=== PATIENT | female | born 1960 | race Caucasian/White ===

== ENCOUNTER 2016-10-14 21:10 | Emergency (ER) | payer SELFPAY ==
[2016-10-14 21:36] VITALS: RESP 18
[2016-10-14] MEDS ORDERED: PENICILLIN VK 500MG STARTER 4 TAB BTL PO STA (22:58)
[2016-10-14] MEDS ORDERED: HYDROcodone/APAP 5-325MG 1 EACH TAB PO STA (22:58)
--- NOTE | 2016-10-14 23:09 | ED ---
ENT HPI - General Chief complaint: Dental/Oral Stated complaint: dental pain Time Seen by Provider: 10/14/16 22:48 Source: patient, RN notes reviewed Mode of arrival: ambulatory - History of Present Illness Initial comments: 56 yo female presents to the ER with cc of left sided dental pain. patient states it has been for the last few days. she has noticed some swelling and warmth to the area. Hurts to eat and chew. Patient states she does have a tenderness to touch over the area. patient denies any pain into the neck. patient denies any inability to open or close the mouth. Patient states there is no other symptoms. Patient states that she has had a dentist. Patient states she was concerned due to the continued pain so she thought that she should be evaluated. Patient denies any recent fever, chills, shortness of breath, chest pain, back pain, abdominal pain, nausea vomiting, numbness or tingling, dysuria or hematuria, constipation or diarrhea, headaches or visual changes, or any other current symptoms. - Related Data Home Medications Medication Instructions Recorded Confirmed Ibuprofen [Motrin] 600 mg PO Q8HR PRN 03/24/16 03/24/16 Previous Rx's Medication Instructions Recorded Penicillin V Potassium [Pen Vee K] 500 mg PO TID #40 tab 03/24/16 traMADol HCl [Ultram] 50 mg PO Q4H PRN #20 tab 03/24/16 Hydrocodone/Acetaminophen [[place] 1 each PO Q6HR PRN #20 tab 10/14/16 5-325] Penicillin V Potassium [Pen Vee K] 500 mg PO TID #40 tab 10/14/16 Allergies Allergy/AdvReac Type Severity Reaction Status Date / Time Sulfa (Sulfonamide Allergy Unknown Verified 10/14/16 21:36 Antibiotics) Review of Systems ROS Statement: Those systems with pertinent positive or pertinent negative responses have been documented in the HPI. ROS Other: All systems not noted in ROS Statement are negative. Past Medical History Past Medical History: No Reported History History of Any Multi-Drug Resistant Organisms: None Reported Past Surgical History: Tonsillectomy, Tubal Ligation Past Psychological History: Anxiety Smoking Status: Never smoker Past Alcohol Use History: None Reported Past Drug Use History: None Reported General Exam General appearance: alert, in no apparent distress Head exam: Present: atraumatic, normocephalic. Absent: normal inspection (left sided facial swelling) Eye exam: Present: normal appearance, PERRL, EOMI. Absent: scleral icterus, conjunctival injection, periorbital swelling ENT exam: Present: normal exam, mucous membranes moist Expanded Ear exam: Present: normal external inspection Mouth exam: Present: normal external inspection Teeth exam: Present: dental caries (13), fractured tooth # (13), dental tenderness # (13), gingival enlargement (13 with no abscess) Neck exam: Present: normal inspection. Absent: tenderness, meningismus, lymphadenopathy Respiratory exam: Present: normal lung sounds bilaterally. Absent: respiratory distress, wheezes, rales, rhonchi, stridor Cardiovascular Exam: Present: regular rate, normal rhythm, normal heart sounds. Absent: systolic murmur, diastolic murmur, rubs, gallop, clicks Neurological exam: Present: alert, oriented X3 Psychiatric exam: Present: normal affect, normal mood Skin exam: Present: warm, dry, intact, normal color. Absent: rash Course Vital Signs 10/14/16 21:32 Temperature 98.2 F Pulse Rate 96 Respiratory 18 Rate Blood Pressure 127/72 O2 Sat by Pulse 96 Oximetry Medical Decision Making - Medical Decision Making 56 yo female presents to the ER with cc of dental caries. Patient at this time has no abscess. There is tenderness to palpation of the area. Patient at this time will be placed on antibiotics and pain medication. at this time we discussed return parameters and follow up. Patient stated she understood and all question were answered. Patient will be discharged home. Disposition Clinical Impression: Dental caries Disposition: HOME SELF-CARE Condition: Stable Instructions: Dental Caries (ED) Additional Instructions: Please use medication as discussed. Please follow up with family doctor if symptoms have not improved over the next two days. Please return to the emergency room if your symptoms increase or worsen or for any other concerns. [facility] [place] [address] [place] [address] [phone] (existing clients only) For new clients: [phone] 1st consult: $50 (includes Xrays) Usually 30% less then private dentist for visits after. [employer] Have to pay $50 for Xrays anmd rest is covered. [phone] Prescriptions: Hydrocodone/Acetaminophen [[place] 5-325] 1 each PO Q6HR PRN #20 tab PRN Reason: Pain Penicillin V Potassium [Pen Vee K] 500 mg PO TID #40 tab Referrals: None,Stated [Primary Care Provider] - 1-2 days Heather Lawson MD [STAFF PHYSICIAN] - 1-2 days Time of Disposition: 23:08
[2016-10-14 23:18] VITALS: BP 123/58; PULSE 70; TEMP 96.8
== END 2016-10-14 23:20 | disposition home or self-care (01) ==
LOC: EC 21:10
DX: S02.5XXA Fracture of tooth (traumatic), initial encounter for closed fracture (principal); K02.9 Dental caries, unspecified; K06.1 Gingival enlargement; Z88.2 Allergy status to sulfonamides; X58.XXXA Exposure to other specified factors, initial encounter
CPT/HCPCS: 99282

== ENCOUNTER → 2017-02-28 | Outpatient (CLI) | payer BC ==
--- NOTE | 2017-02-28 19:04 | XR ---
EXAMINATION TYPE: XR cervical spine comp DATE OF EXAM: 02/28/2017 COMPARISON: NONE HISTORY: Migraine memory loss neck pain TECHNIQUE: 5 views FINDINGS: Vertebra fairly normal alignment. There is a few millimeter anterior subluxation of C4 in r elation to C5. There is mild narrowing at C5-6 C6-7 disc spaces with some spur formation. Atlantoaxia l facet joint is normal. There are no cervical ribs. There is uncovertebral spurring and neural carissa inal impingement bilaterally at C5-6 C6-7. IMPRESSION: Spondylotic changes. No fracture.
== END ==
LOC: RADXRMAIN 18:18
PROVIDERS: ATTEND Family Medicine
DX: M47.812 Spondylosis without myelopathy or radiculopathy, cervical region (principal)
CPT/HCPCS: 72050

== ENCOUNTER → 2017-05-02 | Outpatient (CLI) | payer BC ==
--- NOTE | 2017-05-05 07:47 | MR ---
EXAMINATION TYPE: MR cervical spine wo con DATE OF EXAM: 05/02/2017 6:44 PM COMPARISON: NONE HISTORY: Neck pain, migraines and numbness in arms Multiplanar MultiSpin echo imaging of the cervical spine was performed. Comparison: none C2-C3: No evidence for degenerative disc disease. No disc bulge/herniation or protrusion. No Canal stenosis. Foramina are patent bilaterally. C3-C4: No evidence for degenerative disc disease. No disc bulge/herniation or protrusion. No Canal stenosis. Foramina are patent bilaterally. C4-C5: No evidence for degenerative disc disease. No disc bulge/herniation or protrusion. No Canal stenosis. Foramina are patent bilaterally. C5-C6: Severe disc desiccation. Moderate circumferential disc bulge greatest posteriorly. Subligament ous broad-based disc herniation not excluded. Ventral cord contact with the mild to moderate central stenosis. No evidence for compressive myelopathy. Degenerative change cervical apophyseal joints resu lting in bilateral foraminal encroachment moderate in degree. C6-C7: Moderate to severe disc desiccation. Left paracentral disc protrusion or mild herniation. Effa cement ventral thecal sac without cord contact or central stenosis. Bilateral foraminal encroachment left greater than right. C7-T1: No evidence for degenerative disc disease. No disc bulge/herniation or protrusion. No Canal stenosis. Foramina are patent bilaterally. Cervical segments are intact. There is reversal of the normal cervical lordosis centered at approxima tely the C5-6 level. Scattered ventral spondylosis identified. Cervical spinal cord is of normal sign al. Craniovertebral junction relationships are within normal limits. IMPRESSION: 1. Degenerative disc disease as discussed. 2. Broad-based disc herniation is not excluded at C5-6. There is associated [id number] central stenosis and bilateral foraminal encroachment. 3. Left paracentral disc protrusion or mild herniation C6-7 with foraminal encroachment. See above.
== END | disposition home or self-care (01) ==
LOC: RADMRIMAIN 18:03
PROVIDERS: ATTEND Physical Medicine & Rehabilitation
DX: M48.02 Spinal stenosis, cervical region (principal); M50.123 Cervical disc disorder at C6-C7 level with radiculopathy; M43.12 Spondylolisthesis, cervical region
CPT/HCPCS: 72141

== ENCOUNTER → 2018-01-22 | Outpatient (CLI) | payer BC ==
--- NOTE | 2018-01-22 08:11 | US ---
EXAMINATION TYPE: US gallbladder DATE OF EXAM: 01/22/2018 COMPARISON: CT here and CT within last 30 days at [facility] CLINICAL HISTORY: R10.84 ABD PAIN; pelvic pain and RLQ pain, nausea, vomiting and diarrhea; renal st ones EXAM MEASUREMENTS: Liver Length: 13.0 cm Gallbladder Wall: 0.1 cm CBD: 0.4 cm Right Kidney: 10.0 x 4.8 x 5.1 cm Pancreas: hyperechoic Liver: wnl Gallbladder: wnl Evidence for sonographic Davis's sign: no CBD: wnl Right Kidney: prominent renal pelvis at 1.1cm A/P; possible parapelvic cyst = 3.1 x 2.4 x 3.3cm. IMPRESSION: 1. Right-sided parapelvic cysts. Right renal pelvis is mildly prominent.
== END | disposition home or self-care (01) ==
LOC: RADUSWWP 07:18
PROVIDERS: ATTEND Surgery Plastic and Reconstructive Surgery
DX: N94.89 Other specified conditions associated with female genital organs and menstrual cycle (principal); R10.84 Generalized abdominal pain
CPT/HCPCS: 76705

== ENCOUNTER 2018-02-24 20:05 | Observation (INO) | payer BC ==
[2018-02-24 21:17] LABS: ALT 35 U/L (9-52); AST 23 U/L (14-36); Albumin 4.1 g/dL (3.5-5.0); Alkaline Phosphatase 98 U/L (38-126); Anion Gap 10 mmol/L; Blood Urea Nitrogen 16 mg/dL (7-17); Carbon Dioxide 21 mmol/L (22-30); Chloride 109 mmol/L (98-107); Glucose 85 mg/dL (74-99); Potassium 4.1 mmol/L (3.5-5.1); Sodium 140 mmol/L (137-145); Total Bilirubin 0.6 mg/dL (0.2-1.3); Total Protein 6.5 g/dL (6.3-8.2)
[2018-02-24 21:19] LABS: Basophils % (A) 0 %; Creatine Kinase 69 U/L (30-135); Eosinophils # (A) 0.1 k/uL (0-0.7); Eosinophils % (A) 2 %; HCT 38.7 % (34.0-46.0); HGB 13.1 gm/dL (11.4-16.0); Lymphocytes # (A) 1.1 k/uL (1.0-4.8); Lymphocytes % (A) 20 %; MCH 30.4 pg (25.0-35.0); MCHC 33.9 g/dL (31.0-37.0); MCV 89.6 fL (80.0-100.0); Mean Platelet Volume 7.6; Monocytes # (A) 0.3 k/uL (0-1.0); Monocytes % (A) 5 %; Neutrophils # (A) 3.8 k/uL (1.3-7.7); Neutrophils % (A) 71 %; Platelet Count 195 k/uL (150-450); RBC 4.32 m/uL (3.80-5.40); RDW 13.5 % (11.5-15.5); WBC 5.4 k/uL (3.8-10.6)
[2018-02-24 21:26] LABS: Partial Thromboplastin Time 24.5 sec (22.0-30.0)
--- NOTE | 2018-02-24 21:30 | XR ---
EXAMINATION TYPE: XR chest 2V DATE OF EXAM: 02/24/2018 COMPARISON: 10/07/2009 HISTORY: Chest pain TECHNIQUE: Frontal and lateral views of the chest are obtained. FINDINGS: There is no focal air space opacity, pleural effusion, or pneumothorax seen. The cardiac silhouette size is within normal limits. The osseous structures are intact. IMPRESSION: No acute cardiopulmonary process.
[2018-02-24 21:32] LABS: Creatine Kinase MB 1.3 ng/mL (0.0-2.4); Troponin I <0.012 ng/mL (0.000-0.034)
--- NOTE | 2018-02-24 22:01 | CT ---
EXAMINATION TYPE: CT brain wo con DATE OF EXAM: 02/24/2018 COMPARISON: 12/27/2011 HISTORY: Dizziness, memory loss and weakness CT DLP: 1015.1 mGycm. Automated Exposure Control for Dose Reduction was Utilized. TECHNIQUE: CT scan of the head is performed without contrast. FINDINGS: There is no acute intracranial hemorrhage, mass effect, or midline shift identified. The ventricles and sulci are mildly prominent compatible with minimal age-related volume loss. No suspic ious extra-axial fluid collection is seen. Mild nonspecific white matter changes seen within the exte rnal capsules bilaterally and at the level of the inferior left basal ganglia. The globes are intact and the visualized sinuses are clear. IMPRESSION: No acute intracranial hemorrhage, mass effect, or midline shift is seen. Mild nonspecifi c white matter change, likely on the basis of chronic microangiopathy.
--- NOTE | 2018-02-24 22:02 | ED ---
General Adult HPI - General Chief complaint: Neuro Symptoms/Deficit Stated complaint: Chest Pain Time Seen by Provider: 02/24/18 20:15 Source: patient, family, RN notes reviewed, old records reviewed Mode of arrival: wheelchair Limitations: no limitations - History of Present Illness Initial comments: This is a 37-year-old female the ER for evaluation. She was essay for evaluation of multiple complaints, complaints involving and dizziness weakness headache, difficulty expressing thoughts and chest pain. A she has no significant recent travel history. No fevers no cough or congestion. Patient has been seen evaluated before for headaches, she currently takes Motrin home for evasive no significant improvement. Denies trauma. No no current fevers or recent fevers. No shortness of breath. No drugs or alcohol - Related Data Home Medications Medication Instructions Recorded Confirmed DULoxetine HCL [Cymbalta] 30 mg PO HS 02/24/18 02/24/18 Lisinopril [Zestril] 5 mg PO HS 02/24/18 02/24/18 Allergies Allergy/AdvReac Type Severity Reaction Status Date / Time No Known Allergies Allergy Verified 02/24/18 21:12 Review of Systems ROS Statement: Those systems with pertinent positive or pertinent negative responses have been documented in the HPI. ROS Other: All systems not noted in ROS Statement are negative. Past Medical History Past Medical History: Hypertension Additional Past Medical History / Comment(s): migraines, neck pain History of Any Multi-Drug Resistant Organisms: None Reported Past Surgical History: Tonsillectomy, Tubal Ligation Past Psychological History: Anxiety Smoking Status: Never smoker Past Alcohol Use History: None Reported Past Drug Use History: None Reported General Exam - General Exam Comments Initial Comments: NIH 1 Limitations: no limitations General appearance: alert, in no apparent distress Head exam: Present: atraumatic, normocephalic, normal inspection Eye exam: Present: normal appearance, PERRL, EOMI. Absent: scleral icterus, conjunctival injection, periorbital swelling ENT exam: Present: normal exam, mucous membranes moist Neck exam: Present: normal inspection. Absent: tenderness, meningismus, lymphadenopathy Respiratory exam: Present: normal lung sounds bilaterally. Absent: respiratory distress, wheezes, rales, rhonchi, stridor Cardiovascular Exam: Present: regular rate, normal rhythm, normal heart sounds. Absent: systolic murmur, diastolic murmur, rubs, gallop, clicks GI/Abdominal exam: Present: soft, normal bowel sounds. Absent: distended, tenderness, guarding, rebound, rigid Extremities exam: Present: normal inspection, full ROM, normal capillary refill. Absent: tenderness, pedal edema, joint swelling, calf tenderness Back exam: Present: normal inspection Neurological exam: Present: alert, oriented X3, CN II-XII intact Psychiatric exam: Present: normal affect, normal mood Skin exam: Present: warm, dry, intact, normal color. Absent: rash Course Vital Signs 02/24/18 02/24/18 20:14 22:08 Temperature 98.5 F Pulse Rate 89 82 Respiratory 18 18 Rate Blood Pressure 165/91 197/93 O2 Sat by Pulse 95 97 Oximetry - Reevaluation(s) Reevaluation #1: 02/24/18 22:17 patient still with difficulty word finding Reevaluation #2: 02/24/18 22:17 no current chest pain Reevaluation #3: 02/24/18 22:18 headache is improved EKG Findings - EKG Comments: EKG Findings:: EKG shows sinus rhythm rate of 81, OK 150, QRS 84, QTc 453 Medical Decision Making - Lab Data Result diagrams: 02/24/18 20:49 02/24/18 20:49 Lab Results 02/24/18 02/24/18 02/24/18 Range/Units 20:49 20:49 20:49 WBC 5.4 (3.8-10.6) k/uL RBC 4.32 (3.80-5.40) m/uL Hgb 13.1 (11.4-16.0) gm/dL Hct 38.7 (34.0-46.0) % MCV 89.6 (80.0-100.0) fL MCH 30.4 (25.0-35.0) pg MCHC 33.9 (31.0-37.0) g/dL RDW 13.5 (11.5-15.5) % Plt Count 195 (150-450) k/uL Neutrophils % 71 % Lymphocytes % 20 % Monocytes % 5 % Eosinophils % 2 % Basophils % 0 % Neutrophils # 3.8 (1.3-7.7) k/uL Lymphocytes # 1.1 (1.0-4.8) k/uL Monocytes # 0.3 (0-1.0) k/uL Eosinophils # 0.1 (0-0.7) k/uL Basophils # 0.0 (0-0.2) k/uL PT (9.0-12.0) sec INR (<1.2) APTT (22.0-30.0) sec Sodium 140 (137-145) mmol/L Potassium 4.1 (3.5-5.1) mmol/L Chloride 109 H (98-107) mmol/L Carbon Dioxide 21 L (22-30) mmol/L Anion Gap 10 mmol/L BUN 16 (7-17) mg/dL Creatinine 0.64 (0.52-1.04) mg/dL Est GFR (CKD-EPI)AfAm >90 (>60 ml/min/1.73 sqM) Est GFR (CKD-EPI)NonAf >90 (>60 ml/min/1.73 sqM) Glucose 85 (74-99) mg/dL Calcium 9.0 (8.4-10.2) mg/dL Magnesium 2.0 (1.6-2.3) mg/dL Total Bilirubin 0.6 (0.2-1.3) mg/dL AST 23 (14-36) U/L ALT 35 (9-52) U/L Alkaline Phosphatase 98 (38-126) U/L Total Creatine Kinase 69 (30-135) U/L CK-MB (CK-2) 1.3 (0.0-2.4) ng/mL CK-MB (CK-2) Rel Index 1.9 Troponin I <0.012 (0.000-0.034) ng/mL Total Protein 6.5 (6.3-8.2) g/dL Albumin 4.1 (3.5-5.0) g/dL 02/24/18 Range/Units 20:49 WBC (3.8-10.6) k/uL RBC (3.80-5.40) m/uL Hgb (11.4-16.0) gm/dL Hct (34.0-46.0) % MCV (80.0-100.0) fL MCH (25.0-35.0) pg MCHC (31.0-37.0) g/dL RDW (11.5-15.5) % Plt Count (150-450) k/uL Neutrophils % % Lymphocytes % % Monocytes % % Eosinophils % % Basophils % % Neutrophils # (1.3-7.7) k/uL Lymphocytes # (1.0-4.8) k/uL Monocytes # (0-1.0) k/uL Eosinophils # (0-0.7) k/uL Basophils # (0-0.2) k/uL PT 10.0 (9.0-12.0) sec INR 1.0 (<1.2) APTT 24.5 (22.0-30.0) sec Sodium (137-145) mmol/L Potassium (3.5-5.1) mmol/L Chloride (98-107) mmol/L Carbon Dioxide (22-30) mmol/L Anion Gap mmol/L BUN (7-17) mg/dL Creatinine (0.52-1.04) mg/dL Est GFR (CKD-EPI)AfAm (>60 ml/min/1.73 sqM) Est GFR (CKD-EPI)NonAf (>60 ml/min/1.73 sqM) Glucose (74-99) mg/dL Calcium (8.4-10.2) mg/dL Magnesium (1.6-2.3) mg/dL Total Bilirubin (0.2-1.3) mg/dL AST (14-36) U/L ALT (9-52) U/L Alkaline Phosphatase (38-126) U/L Total Creatine Kinase (30-135) U/L CK-MB (CK-2) (0.0-2.4) ng/mL CK-MB (CK-2) Rel Index Troponin I (0.000-0.034) ng/mL Total Protein (6.3-8.2) g/dL Albumin (3.5-5.0) g/dL - Radiology Data Radiology results: report reviewed (CT brain is negative for acute disease, CXR is negative), image reviewed Disposition Clinical Impression: Transient cerebral ischemia, Expressive aphasia, Weakness, Migraine Disposition: ADMITTED IP TO THIS [facility] Condition: Fair Is patient prescribed a controlled substance at d/c from ED?: No Referrals: Joss Archer MD [Primary Care Provider] - 1-2 days
[2018-02-24] MEDS ORDERED: METOCLOPRAMIDE 5 MG/ML 2 ML VIAL IVP STA (22:15)
[2018-02-24] MEDS ORDERED: methylPREDNISolone SOD SUCCI 250 MG in SODIUM CHLORIDE 0.9% 100 ML IVPB STA (22:15)
[2018-02-24] MEDS ORDERED: LORazepam 2 MG/ML INJ IV STA (22:15)
[2018-02-24] MEDS ORDERED: KETOROLAC 30 MG/ML 1 ML VIAL IVP STA (22:15)
[2018-02-24] MEDS ORDERED: diphenhydrAMINE 50 MG/ML 1 ML VIAL IVP STA (22:15)
[2018-02-24] MEDS ORDERED: ASPIRIN 325 MG TAB PO STA (22:20)
[2018-02-24] MEDS: SODIUM CHLORIDE 0.9% 1,000 ML IV SCH (22:41)
[2018-02-24] MEDS ORDERED: LABETALOL 5 MG/ML VIAL MDV IVP STA (22:56)
[2018-02-25 01:32] VITALS: BMI 28.8
[2018-02-25] MEDS ORDERED: SUMAtriptan SUCCINATE 50 MG TAB PO STA (06:59)
[2018-02-25] MEDS: KETOROLAC 30 MG/ML 1 ML VIAL IVP PRN ×3 (09:23→21:34)
[2018-02-25] MEDS: SODIUM CHLORIDE 0.9% 1,000 ML IV SCH ×2 (09:25→18:32)
[2018-02-25] MEDS: LISINOPRIL 5 MG TAB PO SCH ×2 (11:02→21:24)
--- NOTE | 2018-02-25 12:04 | US ---
EXAMINATION TYPE: US carotid duplex BILAT DATE OF EXAM: 02/25/2018 COMPARISON: NONE CLINICAL HISTORY: suspect TIA. TIA EXAM MEASUREMENTS: RIGHT: Peak Systolic Velocity (PSV) cm/sec ----- Right CCA: 84.2 ----- Right ICA: 165.9 ----- Right ECA: 83.7 ICA/CCA ratio: 2.0 RIGHT: End Diastole cm/sec ----- Right CCA: 18.7 ----- Right ICA: 49.1 ----- Right ECA: 12.1 LEFT: Peak Systolic Velocity (PSV) cm/sec ----- Left CCA: 85.1 ----- Left ICA: 103.1 ----- Left ECA: 74.2 ICA/CCA ratio: 1.2 LEFT: End Diastole cm/sec ----- Left CCA: 24.5 ----- Left ICA: 36.2 ----- Left ECA: 13.9 VERTEBRALS (direction of flow): Right Vertebral: Antegrade Left Vertebral: Antegrade Rhythm: Normal Bilateral intimal thickening, minimal plaque bilateral bulb, elevated velocity: right distal ICA IMPRESSION: 1. Mild atherosclerotic changes with findings suggestive of a 50-69% stenosis involving the proximal right ICA. Criteria for Assigning % of Stenosis / Diameter reduction (Estimation based on the indirect measurements of the internal carotid artery velocities (ICA PSV). 1. Normal (no stenosis)=ICA PSV < 125 cm/s: ratio < 2.0: ICA EDV<40 cm/s. 2. Less than 50% stenosis=ICA PSV < 125 cm/s: ratio < 2.0: ICA EDV<40 cm/s. 3. 50 to 69% stenosis=ICA PSV of 125 to 230 cm/s: ration 2.0 ? 4.0: ICA EDV 40-100 cm/s. 4. Greater than 70% stenosis to near occlusion= ICA PSV > 230 cm/s: ratio > 4.0: ICA EDV > 100 cm/s. 5. Near occlusion= ICA PSV velocities may be low or undetectable: variable ratio and ICA EDV. 6. Total occlusion=unable to detect flow.
[2018-02-25] MEDS ORDERED: HYDROmorphone 1 MG/ML 1 ML SYRINGE IVP PRN (12:45)
[2018-02-25 13:31] LABS: Cholesterol 190 mg/dL (<200); HDL Cholesterol 44 mg/dL (40-60); LDL Cholesterol,Calculated 126 mg/dL (0-99); Triglycerides 100 mg/dL (<150)
[2018-02-25] MEDS ORDERED: methylPREDNISolone SOD SUCCI 125 MG/2 ML VIAL IV STA (14:07)
[2018-02-25] MEDS: HEPARIN SODIUM,PORCINE 5,000 UNIT/ML 1 ML VIAL SQ SCH ×2 (15:19→23:30)
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
[2018-02-25] MEDS: INSULIN ASPART 100 UNIT/ML 1 ML 10 ML VIAL SQ SCH ×2 (17:04→21:35)
[2018-02-25] MEDS ORDERED: methylPREDNISolone SOD SUCCI 125 MG/2 ML VIAL IV SCH (18:00)
[2018-02-25] MEDS: HYDROcodone/APAP 5-325MG 1 EACH TAB PO PRN ×2 (18:49→23:26)
[2018-02-25] MEDS ORDERED: LORazepam 2 MG/ML INJ IV SCH (19:00)
[2018-02-25] MEDS ORDERED: LORazepam 2 MG/ML INJ IV ONE (19:00)
--- NOTE | 2018-02-25 19:00 | CONS ---
DATE OF CONSULTATION: 02/25/2018 This is a 57-year-old pleasant female. She was seen on consult at [facility]. Patient came in with a history of weakness, headache, chest pain, and dizziness and history of expressive aphasia. The patient has this weakness episode for the past 6 months and she was under care of Dr. Ro, the neurologist. Patient had ultrasound of the carotids. Right side 50-69% and left side is normal. Patient also has a history of a CT scan which showed no intracranial bleed, no mass effect. Patient is scheduled to have a MRI of the brain. MEDICAL HISTORY: History of hypertension. No history of chest pain. No history of respiratory distress. EXAMINATION: NECK: Supple. No bruit appreciated. The patient is still complaining of migraine at this point. CHEST: Clear to auscultation. First and second sounds normal. Abdomen is soft. Brachial, radial and femoral pulses are present. Motor function: Patient has a normal licensed occupational therapy assistant of the upper and lower extremity bilateral. IMPRESSION: 1. History of migraine headaches. 2. History of weakness, upper and lower extremity for the last 6 months. 3. History of expressive aphasia. PLAN: The patient is on consult with Neurology and scheduled to have MRI. We will wait for the MRI. We will discuss with Internal Medicine and Neurology. If she has a significant stenosis and symptoms are coming from the right side, we may consider doing arch study and follow up with you. JASON / DEVINN: [id number] / LYN
[2018-02-25] MEDS ORDERED: MAGNESIUM SULFATE-D5W PMX 1 GM in DEXTROSE/WATER 1 100ML.BAG IVPB ONE (19:45)
[2018-02-25 19:48] LABS: Hemoglobin A1C 5.2 % (4.0-6.0)
--- NOTE | 2018-02-25 19:58 | MR ---
EXAMINATION TYPE: MR brain wo con DATE OF EXAM: 02/25/2018 COMPARISON: NONE HISTORY: Dizziness, memory loss, weakness, TIA T1-weighted sagittal, T2, FLAIR, and diffusion axial, and T2 coronal coronal views of the brain are s ubmitted. There is no evidence of acute ischemia. The ventricles, basal cisterns, and sulci overlying the conv exities are consistent with the patient's age. There is no mass effect. Craniocervical junction maintained. Sella turcica has a normal appearance. No cerebellopontine angle mass. Changes of chronic sinusitis noted. IMPRESSION: 1. No acute intracranial process
[2018-02-25] MEDS ORDERED: LISINOPRIL 5 MG TAB PO SCH (21:00)
[2018-02-25 21:09] LABS: Glucose,Whole Blood 208 mg/dL (75-99)
[2018-02-25] MEDS: methylPREDNISolone SOD SUCCI 125 MG/2 ML VIAL IV SCH (21:23)
[2018-02-25] MEDS: DULoxetine HCL 30 MG CAPSULE.DR PO SCH (21:24)
[2018-02-25] MEDS: VERAPAMIL SR 120 MG TABLET.ER PO SCH (21:24)
[2018-02-25] MEDS: METOCLOPRAMIDE 5 MG/ML 2 ML VIAL IVP SCH (21:34)
--- NOTE | 2018-02-25 22:22 | CT ---
EXAMINATION TYPE: CT angio neck DATE OF EXAM: 02/25/2018 HISTORY: TIA and headaches x1 month. COMPARISON: CT DLP: 301 mGycm. Automated Exposure Control for Dose Reduction was Utilized. TECHNIQUE: CTA scan of the neck is performed with IV Contrast, patient injected with 65ml mL of Isov ue 370, axial images are obtained, coronal and sagittal reformatted images are reviewed. Three-D licha nstructed images are created on an independent workstation and reviewed. FINDINGS: There is normal branching pattern of the great vessels on the aortic arch. Thyroid gland is symmetric . There is arterial flow in both vertebral arteries which are fairly symmetric. There is mild plaque at the right carotid artery bifurcation and 25% lumen narrowing. There is wide patency of the left ca rotid artery bifurcation. There is arterial flow in the common internal and external carotid arteries . There is no evidence of carotid or vertebral artery dissection. There is arterial flow in the verte brobasilar artery system. There is bilateral intracranial internal carotid artery flow. IMPRESSION: Mild plaque formation at the right carotid artery bifurcation and 25% stenosis at the origin right in ternal carotid artery.
[2018-02-25] MEDS: ASPIRIN 325 MG TAB PO SCH (23:26)
[2018-02-25] MEDS: LORazepam 2 MG/ML INJ IV PRN (23:28)
[2018-02-26] MEDS: methylPREDNISolone SOD SUCCI 125 MG/2 ML VIAL IV SCH ×5 (01:30→23:25)
[2018-02-26] MEDS: HYDROcodone/APAP 5-325MG 1 EACH TAB PO PRN ×4 (05:03→20:35)
[2018-02-26] MEDS: METOCLOPRAMIDE 5 MG/ML 2 ML VIAL IVP SCH ×3 (05:04→20:34)
[2018-02-26] MEDS: SODIUM CHLORIDE 0.9% 1,000 ML IV SCH ×2 (05:07→16:59)
[2018-02-26 05:51] LABS: Glucose,Whole Blood 171 mg/dL (75-99)
[2018-02-26] MEDS: KETOROLAC 30 MG/ML 1 ML VIAL IVP PRN ×3 (06:28→20:34)
[2018-02-26] MEDS: PANTOPRAZOLE 40 MG TABLET PO SCH (06:28)
[2018-02-26] MEDS: INSULIN ASPART 100 UNIT/ML 1 ML 10 ML VIAL SQ SCH ×4 (06:28→21:59)
[2018-02-26] MEDS: ASPIRIN 325 MG TAB PO SCH (08:30)
[2018-02-26] MEDS: HEPARIN SODIUM,PORCINE 5,000 UNIT/ML 1 ML VIAL SQ SCH ×3 (08:30→23:25)
[2018-02-26] MEDS: LISINOPRIL 5 MG TAB PO SCH ×2 (08:30→20:36)
[2018-02-26] MEDS ORDERED: TOPIRAMATE 25 MG TAB PO SCH (09:00)
--- NOTE | 2018-02-26 09:31 | CONS ---
CONSULTATION DATE OF CONSULTATION: 02/25/2018. CHIEF COMPLAINT: Headache and possible transient ischemic attack. HISTORY OF PRESENT ILLNESS: Mrs. Nobles is a pleasant 57-year-old, female who is being evaluated today on 02/25/2018 by the neurology service per the request of Dr. Archer for the above- mentioned complaints. The patient was brought into [facility] Emergency room complaining of a headache and multiple neurological symptoms. She was feeling dizzy and weak. She is also having some difficulties with language expression. The patient has a long-standing history of migraine headaches but she states that she has had this headache for approximately 1 month. The headache has mainly been on the left side which she described as a throbbing pain and rated at anywhere from 5 to 9/10 in intensity. Over the past couple of days, the headache has been bilateral and mainly affecting the temporal frontal region. The dizziness she describes is consistent with a lightheaded sensation and off-balance sensation. Regarding the speech difficulties, she states that she has troubles saying some of the words although she knows what she wants to say. A CT scan of the brain was done, which showed small-vessel ischemic changes. A carotid Doppler was done, which showed 50% to 69% stenosis involving the right internal carotid artery. Her CBC, cardiac enzymes and comprehensive metabolic profile were normal. At the time of my evaluation, she is lying in her bed and appears to be in mild distress due to the headache. She is still having some language difficulties, but reports improvements in her dizziness. She denies any lateralizing weakness. She has been started on aspirin 325 mg daily. PAST MEDICAL HISTORY: Migraine headaches, hypertension, chronic neck pain, history of anxiety disorder. She does have history of tonsillectomy and tubal ligation. SOCIAL HISTORY: She denies any tobacco or alcohol or drug use. FAMILY HISTORY: Noncontributory. HOME MEDICATIONS: Reviewed in the chart. ALLERGIES: No known drug allergies. REVIEW OF SYSTEMS: CONSTITUTIONAL: Positive for fatigue. EYES: Negative. ENT: Negative. CARDIOVASCULAR: Negative. RESPIRATORY: Negative. NEUROLOGICAL: As mentioned above. GASTROINTESTINAL: Positive for occasional nausea. GENITOURINARY: Negative. PSYCHIATRIC: Positive for history of anxiety disorder. MUSCULOSKELETAL: Positive for frequent neck pain. ENDOCRINE: Negative. DERMATOLOGICAL: Negative. PHYSICAL EXAM: Vital signs show a temperature of 96.0, pulse 93, respiration 18, blood pressure 157/93. GENERAL APPEARANCE: The patient is a well-developed female, who appears to be in mild distress due to headache. HEENT: Normocephalic, atraumatic, no facial asymmetry is seen. Extraocular muscles are intact. NECK: Supple with no masses felt. CARDIOVASCULAR: Regular rate and rhythm. ABDOMEN: Nontender, nondistended. Extremities showed no edema or clubbing. NEUROLOGICAL: The patient is awake and oriented x3. Language testing showed mild expressive aphasia. Speech was normal. Strength is full in all 4 extremities. Sensory exam was normal to light touch in all 4 extremities. No pronator drift is seen. No tremors or seizure-like activity is noticed. No facial asymmetry is seen on cranial nerve testing. IMPRESSION: 1. Transient ischemic attack versus stroke. 2. Right internal carotid artery stenosis. 3. Status migrainosus. 4. Small vessel ischemic disease. RECOMMENDATIONS: The patient's expressive aphasia continues to be present. Her initial CT scan of the brain showed no acute findings. She has been started on aspirin 325 mg daily. Her carotid Doppler did show moderate stenosis on the right side. I will order a CT angiogram of the neck and an MRI of the brain. I will also order an EEG, lipid panel and serum homocystine level. As for her status migrainosus, I will increase her Solu- Medrol to 125 mg every 8 hours. I will also start her on Reglan 10 mg IV every 8 hours. She will also receive a dose of magnesium sulfate 1 g IV. She was recently started on Topamax but I will discontinue this due to her history of nephrolithiasis. I will start her on Calon SR 120 mg daily for headache prevention. Continue neuro checks. I will continue to follow with you. Further recommendations to follow. Thank you, Dr. Archer for allowing me to participate in the care of your patient. If you have any questions, please feel free to contact me. Please send a copy this dictation to Dr. Archer and to my office. MMODL / IJN: [id number] /
[2018-02-26 12:16] LABS: Glucose,Whole Blood 186 mg/dL (75-99)
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
--- NOTE | 2018-02-26 15:52 | EEG ---
ELECTROENCEPHALOGRAM REPORT DATE OF SERVICE: 02/26/2018. REASON FOR TESTING: Transient ischemic attack. DESCRIPTION OF THE PROCEDURE: This EEG was performed using a 21 channel digital electroencephalograph, following international 10-20 system. DESCRIPTION OF THE RECORDING: From the beginning of the tracing, and with patient's eyes closed, the background rhythm was mostly consisting of 10-11 Hz alpha frequency in the posterior occipital leads. No obvious asymmetry is seen. Occasional movement artifacts are noticed. Photic stimulation was performed with a minimal driving response seen. No pathological waves were elicited. Hyperventilation was not performed. The patient remains awake throughout the tracing. No epileptiform discharges were seen. Her EKG lead showed a regular rate and rhythm. INTERPRETATION: This awake EEG can be considered within normal limits. There is no asymmetry seen. No epileptiform discharges were noticed. The absence of epileptiform discharges does not rule out the diagnosis of epilepsy; therefore clinical correlation is recommended. MMLYNDONL / IJLuigi: [id number] /
[2018-02-26 16:22] LABS: Glucose,Whole Blood 121 mg/dL (75-99)
--- NOTE | 2018-02-26 17:41 | P.PN ---
Subjective Progress Note Date: 02/26/18 Patient is a pleasant 57-year-old female who is being followed by the neurology service for headache and possible TIA. Patient was having headache and multiple neurological symptoms and came to [facility] for evaluation. Patient states she was dizzy and weak. Patient reports some difficulty with language expression. Patient reports having headache for approximately 1 month. She does have a history of migraine headaches but states she only takes Motrin or Tylenol and the home setting. Computed tomography scan of the brain was done on admission which showed small vessel ischemic changes. Carotid Doppler was done which showed 50-69% stenosis involving right internal carotid artery. CT angiogram showed mild plaque formation at the right carotid artery bifurcation and 25% stenosis at the origin right internal carotid artery. MRI of the brain showed no acute intracranial process. EEG was done and is normal. At the time of my evaluation , patient states she is still having headache but does report mild improvement of headache and mild improvement of dizziness. She denies any new neurological complaints. Objective - Vital Signs Vital signs: Vital Signs Temp 97.0 F L 02/26/18 12:00 Pulse 94 02/26/18 12:00 Resp 18 02/26/18 12:00 BP 156/83 02/26/18 12:00 Pulse Ox 94 L 02/26/18 12:00 Intake & Output 02/25/18 02/26/18 02/26/18 18:59 06:59 18:59 Intake Total 982 702 Balance 982 702 Weight 87.5 kg Intake: Intake, IV Titration 400 Amount Sodium Chloride 0.9% 1, 400 000 ml @ 40 mls/hr IV . Q24H [facility] Rx#:[id number] Oral 582 702 Other: Voiding Method Toilet # Voids 2 1 2 # Bowel Movements 0 - Exam PHYSICAL EXAM: GENERAL APPEARANCE: Patient is a well-developed, female who appears to be in no acute distress. HEENT: Normocephalic, atraumatic, no facial asymmetry is seen. Neck is supple with no masses felt. CARDIOVASCULAR: Regular rate and rhythm. ABDOMEN: Nontender, nondistended. EXTREMITIES: Show no edema or clubbing. NEUROLOGICAL EXAM: Patient is awake, alert, and oriented 3. Speech and language are normal. Strength is full in all 4 extremities. Sensory exam is normal to light touch in all 4 extremities. No facial asymmetry seen on cranial nerve testing. No pronator drift is seen. No tremors or seizure-like activity noted. - Labs CBC & Chem 7: 02/24/18 20:49 02/24/18 20:49 Labs: Abnormal Lab Results - Last 24 Hours (Table) 02/25/18 02/26/18 02/26/18 Range/Units 21:04 05:48 12:05 POC Glucose (mg/dL) 208 H 171 H 186 H (75-99) mg/dL 02/26/18 Range/Units 16:21 POC Glucose (mg/dL) 121 H (75-99) mg/dL Assessment and Plan Plan: Impression: 1. Transient ischemic attack 2. Right internal carotid artery stenosis 3. Status migrainosus 4. Small vessel ischemic disease Recommendations: Patient's expressive aphasia has significantly improved but has not resolved. Patient still reports mild left-sided weakness. Initial computed tomography scan of the brain did not show any acute process. I recommend continuing aspirin 325 mg daily. Patient was seen by vascular in their recommendation is noted. As far as her headaches, continue IV Solu- Medrol at 125 mg every 8 hours. Continue Reglan 10 mg IV every 8 hours. Continue Calan SR 120 mg daily as a preventative headache medication. Continue Toradol. If headaches are not improved by tomorrow, patient may benefit from a greater occipital nerve block. Patient does have occipital neuritis on exam today. Lipid panel was within normal limits except for high LDL of 126. Continue neurological checks. I will continue to follow with you. Further recommendations to follow. I performed an examination of the patient and discussed the management with the INSTITUTIONAL COMMODITY ANALYST. I have reviewed the INSTITUTIONAL COMMODITY ANALYST notes and agree with the findings and plan of care.
[2018-02-26] MEDS: DULoxetine HCL 30 MG CAPSULE.DR PO SCH (20:35)
[2018-02-26] MEDS: VERAPAMIL SR 120 MG TABLET.ER PO SCH (20:36)
[2018-02-26 20:56] LABS: Glucose,Whole Blood 225 mg/dL (75-99)
[2018-02-26] MEDS: LORazepam 2 MG/ML INJ IV PRN (23:26)
[2018-02-27 00:28] VITALS: TEMP 97.7
[2018-02-27] MEDS: METOCLOPRAMIDE 5 MG/ML 2 ML VIAL IVP SCH ×2 (04:41→12:42)
[2018-02-27] MEDS: KETOROLAC 30 MG/ML 1 ML VIAL IVP PRN ×2 (06:15→14:48)
[2018-02-27] MEDS: PANTOPRAZOLE 40 MG TABLET PO SCH (06:15)
[2018-02-27] MEDS: HYDROcodone/APAP 5-325MG 1 EACH TAB PO PRN ×3 (06:15→14:55)
[2018-02-27] MEDS: methylPREDNISolone SOD SUCCI 125 MG/2 ML VIAL IV SCH ×2 (06:16→12:42)
[2018-02-27 06:33] LABS: Glucose,Whole Blood 161 mg/dL (75-99)
[2018-02-27] MEDS: INSULIN ASPART 100 UNIT/ML 1 ML 10 ML VIAL SQ SCH ×2 (06:40→12:15)
[2018-02-27 09:08] VITALS: RESP 14
[2018-02-27] MEDS: LISINOPRIL 5 MG TAB PO SCH (09:57)
[2018-02-27] MEDS: ASPIRIN 325 MG TAB PO SCH (09:57)
[2018-02-27] MEDS: HEPARIN SODIUM,PORCINE 5,000 UNIT/ML 1 ML VIAL SQ SCH (09:58)
[2018-02-27 11:58] LABS: Glucose,Whole Blood 133 mg/dL (75-99)
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
[2018-02-27 15:51] VITALS: BP 143/85; PULSE 84
== END 2018-02-27 16:03 | disposition home or self-care (01) ==
LOC: EC 20:05 → 6SEL 22:21
PROVIDERS: ADMIT Family Medicine; ATTEND Family Medicine
DX: G43.911 Migraine, unspecified, intractable, with status migrainosus (principal); R53.1 Weakness; R47.01 Aphasia; R26.2 Difficulty in walking, not elsewhere classified; I65.21 Occlusion and stenosis of right carotid artery; I10 Essential (primary) hypertension; H53.8 Other visual disturbances; M54.2 Cervicalgia; G89.29 Other chronic pain; F41.1 Generalized anxiety disorder; R07.81 Pleurodynia; J44.9 Chronic obstructive pulmonary disease, unspecified; F40.240 Claustrophobia; Y99.0 Civilian activity done for income or pay; Y92.512 Supermarket, store or market as the place of occurrence of the external cause; Z82.5 Family history of asthma and other chronic lower respiratory diseases; Z82.3 Family history of stroke; Z79.899 Other long term (current) drug therapy; E66.9 Obesity, unspecified; Z68.29 Body mass index [BMI] 29.0-29.9, adult; Z87.442 Personal history of urinary calculi
CPT/HCPCS: 99285; 96365 ×2; 96375 ×7; 96376 ×3; 96366; 96367; 96372 ×3; 36415; 95816; 93005; 97162; 97166; 92610; 92523; 80061; 80053; 82550; 82553; 83735; 84484; 85025; 85610; 85730; 83036; 71046; 93880; 70450; 70498; 70551; G0378 ×4; J2060 ×3; J1200; J1644 ×3; J2765 ×4; J2930 ×4; J1885 ×4; J3475; Q9967

== ENCOUNTER 2018-03-11 09:36 | Day surgery (SDC) | payer BC ==
[2018-03-06 17:06] VITALS: BMI 30.2
--- NOTE | 2018-03-11 09:35 | P.GSHP ---
History of Present Illness H&P Date: 03/11/18 CHIEF COMPLAINT: GERD and colon screen HISTORY OF PRESENT ILLNESS: The patient is a 57-year-old female who presents with gastroesophageal reflux disease and need for colon screen. Upper and lower endoscopy were offered for further evaluation and management. PAST MEDICAL HISTORY: Please see list. PAST SURGICAL HISTORY: Please see list. MEDICATIONS: Please see list. ALLERGIES: Please see list. SOCIAL HISTORY: No illicit drug use FAMILY HISTORY: No reports of Crohn disease or ulcerative colitis. REVIEW OF ORGAN SYSTEMS: CONSTITUTIONAL: No reports of fevers or chills. GI: Denies any blood in stools or constipation. PHYSICAL EXAM: VITAL SIGNS: Stable GENERAL: Well-developed pleasant in no acute distress. HEENT: No scleral icterus. Extraocular movements grossly intact. Moist buccal mucosa. NECK: Supple without lymphadenopathy. CHEST: Unlabored respirations. Equal bilateral excursions. CARDIOVASCULAR: Regular rate and rhythm. Distal 2+ pulses. ABDOMEN: Soft, nondistended. MUSCULOSKELETAL: No clubbing, cyanosis, or edema. ASSESSMENT: 1. Gastroesophageal reflux disease 2. Colon screen. PLAN: 1. Recommend proceeding with an upper and lower endoscopy Past Medical History Past Medical History: CVA/TIA, GERD/Reflux, Hypertension Additional Past Medical History / Comment(s): HX MIGRAINES; RECENT ADMIT FOR TIA 02/24/18, HAS OCC MEMORY LAPSES. ON PO STEROID TAPER. History of Any Multi-Drug Resistant Organisms: None Reported Past Surgical History: Tonsillectomy, Tubal Ligation Past Anesthesia/Blood Transfusion Reactions: No Reported Reaction Smoking Status: Never smoker - Past Family History Mother Family Medical History: No Reported History Medications and Allergies Home Medications Medication Instructions Recorded Confirmed Type DULoxetine HCL [Cymbalta] 60 mg PO HS 02/24/18 03/06/18 History Aspirin 325 mg PO DAILY #30 tab 02/27/18 03/06/18 Rx Lisinopril [Zestril] 5 mg PO BID #60 tab 02/27/18 03/06/18 Rx Omeprazole [PriLOSEC] 20 mg PO AC-BRKFST #30 cap 02/27/18 03/06/18 Rx Verapamil Sr [Isoptin Sr] 120 mg PO HS #30 tab 02/27/18 03/06/18 Rx predniSONE See Taper PO DIRECTED #56 tab 02/27/18 03/06/18 Rx Cyclobenzaprine [Flexeril] 10 mg PO BID PRN 03/06/18 03/06/18 History Allergies Allergy/AdvReac Type Severity Reaction Status Date / Time No Known Allergies Allergy Verified 03/06/18 16:20
[~2018-03-11 09:36] MED LIST: LIDOCAINE 1% 20 ML VIAL (10MG/ML) FOR IV START INTRADERMA PRN
[2018-03-11 10:28] VITALS: TEMP 98.3
[2018-03-11] MEDS: LACTATED RINGERS 1,000 ML IV SCH ×2 (10:30→11:01)
[2018-03-11] MEDS ORDERED: PROPOFOL 10 MG/ML 20 ML VIAL IV ONE (11:02)
--- NOTE | 2018-03-11 11:19 | P.PCN ---
Date of Procedure: 03/11/18 Description of Procedure: PREOPERATIVE DIAGNOSIS: Gastroesophageal reflux disease. POSTOPERATIVE DIAGNOSIS: Acute gastric ulcer along antrum without bleeding Gastritis. Gastroesophageal reflux disease. Diaphragmatic hiatal hernia without obstruction. OPERATION: Esophagogastroduodenoscopy with biopsies along antrum. SURGEON: Samantha Gordon MD ANESTHESIA: MAC. INDICATIONS: The patient is a 57-year-old female who presents with a history of reflux disease. Benefits and risks of the procedure were described. Informed consent was obtained. DESCRIPTION: The patient was brought into the endoscopy suite and laid in the left lateral decubitus position. An Olympus gastroscope was passed along the posterior oropharynx down to the distal esophagus where the squamocolumnar junction was encountered at 35 cm from the incisors. The stomach was entered and no bile reflux was found. Additional findings are listed below. Biopsies with cold forceps were obtained of the antrum. The first through third portion of the duodenum was examined and unremarkable. Retroflexion of the scope confirmed Hill grade 3 lower esophageal valve. The squamocolumnar junction demonstrated LA grade A erosive esophagitis. The stomach was desufflated. The patient tolerated the procedure well. FINDINGS: Squamocolumnar junction 35 cm from the incisors. Diaphragmatic hiatus at 37 cm. Hiatal hernia 2 cm. Hill grade 3 lower esophageal valve. LA grade A erosive esophagitis. Acute gastric ulcer along antrum without bleeding Acute gastritis No active duodenitis. RECOMMENDATIONS: Upper endoscopy as needed. Will benefit from antireflux surgical procedure
--- NOTE | 2018-03-11 11:32 | P.PN ---
Progress Note - Text Progress Note Date: 03/11/18 Digital rectal exam demonstrated solid stool despite colon prep. Colonoscopy canceled. We'll reschedule colonoscopy.
[2018-03-11 11:34] VITALS: RESP 16
[2018-03-11 12:16] VITALS: BP 119/75; PULSE 89
== END 2018-03-11 12:14 | disposition home or self-care (01) ==
LOC: ORWHC2ENDO 09:36
PROVIDERS: ATTEND Surgery Plastic and Reconstructive Surgery
DX: Z12.11 Encounter for screening for malignant neoplasm of colon (principal); K25.3 Acute gastric ulcer without hemorrhage or perforation; K21.9 Gastro-esophageal reflux disease without esophagitis; K44.9 Diaphragmatic hernia without obstruction or gangrene; I10 Essential (primary) hypertension; Z86.73 Personal history of transient ischemic attack (TIA), and cerebral infarction without residual deficits; Z79.82 Long term (current) use of aspirin; Z79.52 Long term (current) use of systemic steroids; Z79.899 Other long term (current) drug therapy
CPT/HCPCS: 88305; 43239; J2704; G0121

== ENCOUNTER 2018-03-13 06:13 | Day surgery (SDC) | payer BC ==
[2018-03-12 12:17] VITALS: BMI 30.2
--- NOTE | 2018-03-12 20:17 | P.GSHP ---
History of Present Illness H&P Date: 03/13/18 CHIEF COMPLAINT: Colon screen HISTORY OF PRESENT ILLNESS: The patient is a 57-year-old female who presents for colon screen. Lower endoscopy was offered for further evaluation and management. PAST MEDICAL HISTORY: Please see list. PAST SURGICAL HISTORY: Please see list. MEDICATIONS: Please see list. ALLERGIES: Please see list. SOCIAL HISTORY: No illicit drug use FAMILY HISTORY: No reports of Crohn disease or ulcerative colitis. REVIEW OF ORGAN SYSTEMS: CONSTITUTIONAL: No reports of fevers or chills. PHYSICAL EXAM: VITAL SIGNS: Stable GENERAL: Well-developed pleasant in no acute distress. HEENT: No scleral icterus. Extraocular movements grossly intact. Moist buccal mucosa. NECK: Supple without lymphadenopathy. CHEST: Unlabored respirations. Equal bilateral excursions. CARDIOVASCULAR: Regular rate and rhythm. Distal 2+ pulses. ABDOMEN: Soft, nontender, nondistended. MUSCULOSKELETAL: No clubbing, cyanosis, or edema. ASSESSMENT: 1. Colon screen. PLAN: 1. Recommend proceeding with a lower endoscopy Past Medical History Past Medical History: Hypertension Additional Past Medical History / Comment(s): migraines, neck pain History of Any Multi-Drug Resistant Organisms: None Reported Past Surgical History: Tonsillectomy, Tubal Ligation Additional Past Surgical History / Comment(s): EGD Past Anesthesia/Blood Transfusion Reactions: No Reported Reaction Smoking Status: Never smoker - Past Family History Father Additional Family Medical History / Comment(s): schizoprenia Mother Family Medical History: COPD, CVA/TIA Medications and Allergies Home Medications Medication Instructions Recorded Confirmed Type DULoxetine HCL [Cymbalta] 60 mg PO HS 02/24/18 03/12/18 History Aspirin 325 mg PO DAILY #30 tab 02/27/18 03/12/18 Rx Lisinopril [Zestril] 5 mg PO BID #60 tab 02/27/18 03/12/18 Rx Omeprazole [PriLOSEC] 20 mg PO AC-BRKFST #30 cap 02/27/18 03/12/18 Rx Verapamil Sr [Isoptin Sr] 120 mg PO HS #30 tab 02/27/18 03/12/18 Rx Cyclobenzaprine [Flexeril] 10 mg PO BID PRN 03/06/18 03/12/18 History Omeprazole 40 mg PO DAILY #30 03/11/18 03/12/18 Rx Allergies Allergy/AdvReac Type Severity Reaction Status Date / Time No Known Allergies Allergy Verified 03/12/18 12:14
[~2018-03-13 06:13] MED LIST changes: +LACTATED RINGERS 1,000 ML IV SCH
[2018-03-13 07:10] VITALS: TEMP 98.2
[2018-03-13 07:11] LABS: Glucose,Whole Blood 77 mg/dL (75-99)
[2018-03-13] MEDS ORDERED: PROPOFOL 10 MG/ML 20 ML VIAL IV ONE (07:11)
[2018-03-13] MEDS ORDERED: MIDAZOLAM 2 MG/2 ML VIAL ONE (07:11)
[2018-03-13] MEDS ORDERED: LIDOCAINE 1% INJ 10MG/ML (20 ML MDV) ONE (07:11)
[2018-03-13] MEDS ORDERED: fentaNYL (PF) 50 MCG/ML 2 ML AMP ONE (07:11)
[2018-03-13] MEDS ORDERED: ePHEDrine SULFATE/0.9% NACL/PF 50 MG/5 ML SYRINGE IV ONE (07:11)
--- NOTE | 2018-03-13 07:48 | P.PCN ---
Date of Procedure: 03/13/18 Description of Procedure: PREOPERATIVE DIAGNOSIS: Colonoscopy screening. POSTOPERATIVE DIAGNOSIS: Colonoscopy screening. Chronic constipation OPERATION: Colonoscopy to the ileocecal valve SURGEON: Samantha Gordon MD. ANESTHESIA: MAC. INDICATIONS: The patient is a 57-year-old female who presents for colonoscopy screening. Benefits and risks were described and informed consent was obtained. DESCRIPTION OF PROCEDURE: The patient had undergone Gatorade, MiraLAX and Dulcolax prep. She had been brought into the operating room and laid in the left lateral decubitus position. After adequate intravenous sedation, the rectum was examined with 2% lidocaine jelly. External hemorrhoids were encountered. The rectal tone was within normal limits. No lesions were palpated in the rectal vault. An Olympus colonoscope was advanced until the ileocecal valve was reviewed. The prep was poor despite 2 day colonic prep. Moderate liquid stool limited the view of each mucosal fold. No large scattered diverticulosis was encountered. No large colonic polyps were found. No evidence of focal colitis was found. Retroflexion of the scope demonstrated grade 1 internal hemorrhoids without active bleeding or inflammation. The colon was desufflated. The patient had tolerated the procedure well. Withdrawal time was over 6 minutes. FINDINGS: Internal hemorrhoids, grade 1 External prolapsed hemorrhoids, grade 1 No arteriovenous malformations. No large adenomatous polyps. No focal colitis. RECOMMENDATIONS: Lower endoscopy in 5 years, 2022. Recommend 2 day colon prep or Cologaurd. Plan - Discharge Summary New Discharge Prescriptions: No Action DULoxetine HCL [Cymbalta] 60 mg PO HS Aspirin 325 mg PO DAILY #30 tab Lisinopril [Zestril] 5 mg PO BID #60 tab Omeprazole [PriLOSEC] 20 mg PO AC-BRKFST #30 cap Verapamil Sr [Isoptin Sr] 120 mg PO HS #30 tab Cyclobenzaprine [Flexeril] 10 mg PO BID PRN PRN Reason: NECK PAIN Omeprazole 40 mg PO DAILY #30 capsule.dr Discharge Medication List DULoxetine HCL [Cymbalta] 60 mg PO HS 02/24/18 [History] Aspirin 325 mg PO DAILY #30 tab 02/27/18 [Rx] Lisinopril [Zestril] 5 mg PO BID #60 tab 02/27/18 [Rx] Omeprazole [PriLOSEC] 20 mg PO AC-BRKFST #30 cap 02/27/18 [Rx] Verapamil Sr [Isoptin Sr] 120 mg PO HS #30 tab 02/27/18 [Rx] Cyclobenzaprine [Flexeril] 10 mg PO BID PRN 03/06/18 [History] Omeprazole 40 mg PO DAILY #30 capsule. 03/11/18 [Rx] Follow up Appointment(s)/Referral(s): Samantha Godron MD [STAFF PHYSICIAN] - As Needed Patient Instructions/Handouts: *[facility] - (Anesthesia) Endoscopy Discharge Instructions, Colonoscopy (DC) Activity/Diet/Wound Care/Special Instructions: Repeat colonoscopy in 5 years, 2022. Recommend 2-3 day prep or cologaurd. Discharge Disposition: HOME SELF-CARE
[2018-03-13 08:03] VITALS: BP 105/62; PULSE 75; RESP 16
== END 2018-03-13 08:09 | disposition home or self-care (01) ==
LOC: ORWHC2ENDO 06:13
PROVIDERS: ATTEND Surgery Plastic and Reconstructive Surgery
DX: Z12.11 Encounter for screening for malignant neoplasm of colon (principal); K64.0 First degree hemorrhoids; I10 Essential (primary) hypertension; Z79.82 Long term (current) use of aspirin; Z79.899 Other long term (current) drug therapy
CPT/HCPCS: J2250; J2001; J3010; J2704; G0121; 45378

== ENCOUNTER → 2018-04-02 | Outpatient (CLI) | payer BC ==
--- NOTE | 2018-04-02 16:38 | XR ---
Right shoulder and right scapula HISTORY: Right shoulder pain 3 views of the right shoulder, 2 views of the right scapula Comparison right scapula same date Bone mineralization, joint spaces and alignment are maintained. Right lung apex as visualized is norm al. No fracture or dislocation. IMPRESSION: No significant abnormality is evident.
== END | disposition home or self-care (01) ==
LOC: RADXRMAIN 14:57
PROVIDERS: ATTEND Family Medicine
DX: M25.511 Pain in right shoulder (principal)

== ENCOUNTER 2018-04-23 20:21 | Emergency (ER) | payer BC ==
[2018-04-23 20:26] VITALS: BP 111/65; PULSE 109; RESP 22; TEMP 98
[2018-04-23] MEDS ORDERED: KETOROLAC 30 MG/ML 1 ML VIAL IVP STA (21:04)
[2018-04-23] MEDS ORDERED: SODIUM CHLORIDE 0.9% 1,000 ML IV STA (21:04)
[2018-04-23] MEDS ORDERED: ONDANSETRON 4 MG/2 ML VIAL IVP STA (21:04)
--- NOTE | 2018-04-23 21:11 | ED ---
Abdominal Pain HPI - General Source: patient, RN notes reviewed Mode of arrival: ambulatory Limitations: no limitations <Aniya Dyson - Last Filed: 04/23/18 22:38> <Amanda Petersen - Last Filed: 04/23/18 23:05> - General Chief Complaint: Abdominal Pain Stated Complaint: back & abdominal pain Time Seen by Provider: 04/23/18 20:50 - History of Present Illness Initial Comments: This is a 57-year-old female who presents to the emergency department with chief complaint of right flank pain. Patient reports sudden onset right flank pain this morning at 5 AM. She states it has been constant, sharp and stabbing. She states that it radiates from the right flank around to the right lower quadrant of her abdomen. She has reported history of kidney stones. She reports nausea but denies vomiting. States that she has not eaten anything today. Denies any fevers or chills. She reports increased urinary frequency and urgency. She reports pain at the end of urination. Denies hematuria. Denies chest pain or shortness of breath, constipation. She does report diarrhea earlier this morning. (Aniya Dyson) - Related Data Home Medications Medication Instructions Recorded Confirmed Cyclobenzaprine [Flexeril] 10 mg PO BID PRN 03/06/18 04/23/18 Aspirin EC [Ecotrin Low Dose] 81 mg PO DAILY 04/23/18 04/23/18 Atorvastatin [Lipitor] 20 mg PO HS 04/23/18 04/23/18 Butalb/APAP/Caff 50-325-40Mg 1 tab PO TID PRN 04/23/18 04/23/18 [Fioricet 50-325-40] DULoxetine HCL [Cymbalta] 60 mg PO DAILY 04/23/18 04/23/18 Ibuprofen [Motrin] 800 mg PO TID PRN 04/23/18 04/23/18 Lansoprazole [Prevacid] 15 mg PO HS 04/23/18 04/23/18 Loratadine 10 mg PO DAILY 04/23/18 04/23/18 Montelukast [Singulair] 10 mg PO HS 04/23/18 04/23/18 Zonisamide [Zonegran] 100 mg PO DAILY 04/23/18 04/23/18 clonazePAM [KlonoPIN] 0.5 mg PO Q12H PRN 04/23/18 04/23/18 Previous Rx's Medication Instructions Recorded Lisinopril [Zestril] 5 mg PO BID #60 tab 02/27/18 Verapamil Sr [Isoptin Sr] 120 mg PO HS #30 tab 02/27/18 Omeprazole 40 mg PO DAILY #30 capsule. 03/11/18 Acetaminophen-Codeine 300-30mg 1 tab PO Q6H PRN #8 tablet 04/23/18 [Tylenol #3] Tamsulosin [Flomax] 0.4 mg PO DAILY #7 cap 04/23/18 Allergies Allergy/AdvReac Type Severity Reaction Status Date / Time No Known Allergies Allergy Verified 04/23/18 20:41 Review of Systems ROS Other: All systems not noted in ROS Statement are negative. <Aniya Dyson - Last Filed: 04/23/18 22:38> ROS Other: All systems not noted in ROS Statement are negative. <Amanda Petersen - Last Filed: 04/23/18 23:05> ROS Statement: Those systems with pertinent positive or pertinent negative responses have been documented in the HPI. Past Medical History Past Medical History: Hypertension Additional Past Medical History / Comment(s): migraines, neck pain History of Any Multi-Drug Resistant Organisms: None Reported Past Surgical History: Tonsillectomy, Tubal Ligation Additional Past Surgical History / Comment(s): EGD Past Anesthesia/Blood Transfusion Reactions: No Reported Reaction Past Psychological History: Anxiety, Depression Smoking Status: Never smoker Past Alcohol Use History: None Reported Past Drug Use History: None Reported - Past Family History Father Additional Family Medical History / Comment(s): schizoprenia Mother Family Medical History: COPD, CVA/TIA <Aniya Dyson - Last Filed: 04/23/18 22:38> General Exam Limitations: no limitations <Aniya Dyson - Last Filed: 04/23/18 22:38> <Amanda Petersen - Last Filed: 04/23/18 23:05> - General Exam Comments Initial Comments: General: Awake and alert, well-developed; in no apparent distress. HEENT: Head atraumatic, normocephalic. Pupils are equal, round and reactive to light. Extraocular movements intact. Oropharynx moist without erythema or exudate. Neck: Supple. Normal ROM. Cardiovascular: Regular rate and rhythm. No murmurs, rubs or gallops. Chest symmetrical. Respiratory: Lungs clear to auscultation bilaterally. No wheezes, rales or rhonchi. Normal respiratory effort with no use of accessory muscles. Abdomen: Soft, non-tender, non-distended. No rigidity, rebound or guarding. Normal bowel sounds in all 4 quadrants. Right CVA tenderness. Musculoskeletal: Normal ROM, no tenderness bilateral upper and lower extremities. Skin: [place], warm and dry without rashes or lesions. Neurological: Alert and oriented x3. CN II-XII grossly intact. Speech is fluent and answers are appropriate. No focal neuro deficits. Psychiatric: Normal mood and affect. No overt signs of depression or anxiety noted. (Aniya Dyson) Vital Signs 04/23/18 20:23 Temperature 98 F Pulse Rate 109 H Respiratory 22 Rate Blood Pressure 111/65 O2 Sat by Pulse 95 Oximetry Medical Decision Making - Lab Data Result diagrams: 04/23/18 20:47 04/23/18 20:47 - Radiology Data Radiology results: report reviewed <Aniya Dyson - Last Filed: 04/23/18 22:38> - Lab Data Result diagrams: 04/23/18 20:47 04/23/18 20:47 <Amanda Petersen - Last Filed: 04/23/18 23:05> - Medical Decision Making This is a 57-year-old female who presents to the emergency department with chief complaint of right flank pain. Patient reports history of kidney stones. She reports sudden onset of right flank pain that radiates around to the abdomen. UA revealed moderate blood and 55 red blood cells. Urine culture is pending. Patient was given Toradol in the emergency department and she reports improvement in her symptoms. Discussed computed tomography scan as the x-ray KUB was normal, however patient declines. She is in agreement to be treated as a kidney stone. She will be started on Flomax and pain medication. Vital signs have been stable and she is in no acute distress. She will be discharged home at this time. She is in agreement and voices understanding. All questions were answered. (nAiya Dyson) Graciela was available for consultation in the emergency department. The history and physical exam were done by the midlevel provider. I was consulted for this patient's care. I reviewed the case with the midlevel provider and based on their presentation of the patient, I agree with the assessment, medical decision making and plan of care as documented. (Amanda Petersen) - Lab Data Lab Results 04/23/18 04/23/18 04/23/18 Range/Units 20:47 20:47 20:47 WBC 14.8 H (3.8-10.6) k/uL RBC 4.48 (3.80-5.40) m/uL Hgb 13.5 (11.4-16.0) gm/dL Hct 41.7 (34.0-46.0) % MCV 93.1 (80.0-100.0) fL MCH 30.2 (25.0-35.0) pg MCHC 32.4 (31.0-37.0) g/dL RDW 13.7 (11.5-15.5) % Plt Count 210 (150-450) k/uL Neutrophils % 89 % Lymphocytes % 7 % Monocytes % 4 % Eosinophils % 0 % Basophils % 0 % Neutrophils # 13.1 H (1.3-7.7) k/uL Lymphocytes # 1.0 (1.0-4.8) k/uL Monocytes # 0.5 (0-1.0) k/uL Eosinophils # 0.1 (0-0.7) k/uL Basophils # 0.0 (0-0.2) k/uL Sodium 139 (137-145) mmol/L Potassium 4.6 (3.5-5.1) mmol/L Chloride 108 H (98-107) mmol/L Carbon Dioxide 20 L (22-30) mmol/L Anion Gap 11 mmol/L BUN 10 (7-17) mg/dL Creatinine 0.72 (0.52-1.04) mg/dL Est GFR (CKD-EPI)AfAm >90 (>60 ml/min/1.73 sqM) Est GFR (CKD-EPI)NonAf >90 (>60 ml/min/1.73 sqM) Glucose 129 H (74-99) mg/dL Calcium 9.0 (8.4-10.2) mg/dL Total Bilirubin 0.5 (0.2-1.3) mg/dL AST 28 (14-36) U/L ALT 38 (9-52) U/L Alkaline Phosphatase 128 H (38-126) U/L Total Protein 6.9 (6.3-8.2) g/dL Albumin 4.1 (3.5-5.0) g/dL Amylase 54 (30-110) U/L Lipase 65 (23-300) U/L Urine Color Yellow Urine Appearance Clear (Clear) Urine pH 8.0 (5.0-8.0) Ur Specific [place] 1.016 (1.001-1.035) Urine Protein 2+ H (Negative) Urine Glucose (UA) Negative (Negative) Urine Ketones Negative (Negative) Urine Blood Moderate H (Negative) Urine Nitrite Negative (Negative) Urine Bilirubin Negative (Negative) Urine Urobilinogen <2.0 (<2.0) mg/dL Ur Leukocyte Esterase Small H (Negative) Urine RBC 55 H (0-5) /hpf Urine WBC 27 H (0-5) /hpf Ur Squamous Epith Cells <1 (0-4) /hpf Urine Bacteria Occasional H (None) /hpf Urine Mucus Occasional H (None) /hpf Urine Yeast (Budding) Occasional H (None) /hpf - Radiology Data X-ray KUB impression: Nonacute abdomen. No change. (Aniya Dyson) Disposition Is patient prescribed a controlled substance at d/c from ED?: No Time of Disposition: 22:21 <Aniya Dyson - Last Filed: 04/23/18 22:38> <Amanda Petersen - Last Filed: 04/23/18 23:05> Clinical Impression: Flank pain, Hematuria Disposition: HOME SELF-CARE Condition: Good Instructions: Hematuria (ED), Flank Pain (ED) Additional Instructions: Please take medications as prescribed. Please follow up with primary care provider within 1-2 days. Return to emergency department if symptoms should worsen or any concerns arise. Prescriptions: Acetaminophen-Codeine 300-30mg [Tylenol #3] 1 tab PO Q6H PRN #8 tablet PRN Reason: Pain Tamsulosin [Flomax] 0.4 mg PO DAILY #7 cap Referrals: Joss Archer MD [Primary Care Provider] - 1-2 days
[2018-04-23 21:15] LABS: Basophils % (A) 0 %; Eosinophils # (A) 0.1 k/uL (0-0.7); Eosinophils % (A) 0 %; HCT 41.7 % (34.0-46.0); HGB 13.5 gm/dL (11.4-16.0); Lymphocytes % (A) 7 %; MCH 30.2 pg (25.0-35.0); MCHC 32.4 g/dL (31.0-37.0); MCV 93.1 fL (80.0-100.0); Mean Platelet Volume 7.4; Monocytes # (A) 0.5 k/uL (0-1.0); Monocytes % (A) 4 %; Neutrophils # (A) 13.1 k/uL (1.3-7.7); Neutrophils % (A) 89 %; Platelet Count 210 k/uL (150-450); RBC 4.48 m/uL (3.80-5.40); RDW 13.7 % (11.5-15.5); WBC 14.8 k/uL (3.8-10.6)
--- NOTE | 2018-04-23 21:18 | XR ---
EXAMINATION TYPE: XR KUB DATE OF EXAM: 04/23/2018 COMPARISON: 02/25/2012 HISTORY: Abdominal pain TECHNIQUE: 2 views upright FINDINGS: There is no sign of intestinal obstruction or pneumoperitoneum. Fecal pattern is normal. Th ere are no pathologic calcifications over the kidneys. Lung bases are clear. IMPRESSION: Nonacute abdomen. No change.
[2018-04-23 21:19] LABS: ALT 38 U/L (9-52); AST 28 U/L (14-36); Albumin 4.1 g/dL (3.5-5.0); Alkaline Phosphatase 128 U/L (38-126); Amylase 54 U/L (30-110); Anion Gap 11 mmol/L; Blood Urea Nitrogen 10 mg/dL (7-17); Carbon Dioxide 20 mmol/L (22-30); Chloride 108 mmol/L (98-107); Glucose 129 mg/dL (74-99); Lipase 65 U/L (23-300); Potassium 4.6 mmol/L (3.5-5.1); Sodium 139 mmol/L (137-145); Total Bilirubin 0.5 mg/dL (0.2-1.3); Total Protein 6.9 g/dL (6.3-8.2)
[2018-04-23 21:21] LABS: Appearance,Urine Clear (Clear); Bacteria,Urine Occasional /hpf; Bilirubin,Urine Negative (Negative); Blood,Urine Moderate (Negative); Budding Yeast,Urine Occasional /hpf; Color,Urine Yellow; Glucose,Urine (UA) Negative (Negative); Ketones,Urine Negative (Negative); Leukocyte Esterase,Urine Small (Negative); Mucus,Urine Occasional /hpf; Nitrite,Urine Negative (Negative); Protein,Urine 2+ (Negative); RBC,Urine 55 /hpf (0-5); Specific Gravity,Urine 1.016 (1.001-1.035); Squamous Epithelial Cell,Urine <1 /hpf (0-4); Urobilinogen,Urine <2.0 mg/dL (<2.0); WBC,Urine 27 /hpf (0-5)
== END 2018-04-23 22:49 | disposition home or self-care (01) ==
LOC: EC 20:21
DX: R10.31 Right lower quadrant pain (principal); R31.9 Hematuria, unspecified; R11.0 Nausea; M54.9 Dorsalgia, unspecified; R35.0 Frequency of micturition; R39.15 Urgency of urination; I10 Essential (primary) hypertension; F41.9 Anxiety disorder, unspecified; F32.9 Major depressive disorder, single episode, unspecified; Z98.51 Tubal ligation status; Z79.82 Long term (current) use of aspirin; Z79.899 Other long term (current) drug therapy; Z87.442 Personal history of urinary calculi; Z53.29 Procedure and treatment not carried out because of patient's decision for other reasons
CPT/HCPCS: 99284; 96374; 96375; 96361; 36415; 80053; 82150; 83690; 85025; 81001; 87086; 74018; J2405; J1885

== ENCOUNTER → 2018-05-12 | Outpatient (CLI) | payer BC ==
--- NOTE | 2018-05-12 15:00 | MR ---
EXAMINATION TYPE: MR cervical spine wo con DATE OF EXAM: 05/12/2018 COMPARISON: Prior MR cervical spine 05/02/2017 HISTORY: Other spondylosis, cervical region, neck, back and head pain. TECHNIQUE: Multiplanar, multisequence images of the cervical spine were acquired. C2-C3: No evidence for degenerative disc disease. No disc bulge/herniation or protrusion. No Canal stenosis. Foramina are patent bilaterally. C3-C4: Right-sided foraminal encroachment present. No significant central stenosis. C4-C5: No evidence for degenerative disc disease. No disc bulge/herniation or protrusion. No Canal stenosis. Foramina are patent bilaterally. C5-C6: Posterior broad-based disc bulge is again noted, endplate disc complex extends and causes mode rate central canal stenosis, bilateral foraminal encroachment is present due to uncovertebral joint h ypertrophy. C6-C7: Posterior extension of endplate disc complex is somewhat eccentric towards the left causing an terolateral mass effect on the thecal sac. On mild central stenosis. There is left-sided foraminal en croachment. C7-T1: No evidence for degenerative disc disease. No disc bulge/herniation or protrusion. No Canal stenosis. Foramina are patent bilaterally. Cervical segments are intact. There is normal alignment. Cervical spinal cord is of normal signal. Craniovertebral junction relationships are within normal limits. Reversal of the normal cervical lo rdosis is present. Cervical vertebral bodies show preserved height. Multilevel spondylosis with endpl ate discogenic marrow signal changes present, loss of disc height signal greatest at C4-5 and C5-6 an d C6-7 as on prior exam. IMPRESSION: Degenerative disc disease is similar to prior exam.
== END | disposition home or self-care (01) ==
LOC: RADMRIMAIN 13:08
PROVIDERS: ATTEND Specialist
DX: M50.30 Other cervical disc degeneration, unspecified cervical region (principal)
CPT/HCPCS: 72141

== ENCOUNTER → 2018-06-15 | Outpatient (CLI) | payer BC ==
--- NOTE | 2018-06-15 16:55 | XR ---
Cervical spine HISTORY: Pain 7 views of the cervical spine correlated prior exam 02/28/2017 Anterolisthesis grade 1 at C4-5 again noted. Loss of disc height C5-6 and C6-7 with associated spondy losis. Cervical vertebral bodies show preserved height and stable bone mineralization. Prevertebral s oft tissues are normal. No significant change in listhesis on flexion and extension views. Foraminal encroachment is present at C3-4, C4-5 and C5-6 on the right, C5-6 and C6-7 on the left. Odontoid view is limited. IMPRESSION: Degenerative disc disease. Spondylolisthesis is stable.
== END ==
LOC: RADXRMAIN 15:13
PROVIDERS: ATTEND Neurological Surgery
DX: M43.12 Spondylolisthesis, cervical region (principal); M50.30 Other cervical disc degeneration, unspecified cervical region
CPT/HCPCS: 72052

== ENCOUNTER 2018-07-09 08:56 | Day surgery (SDC) | payer BC ==
[2018-07-07 15:08] VITALS: BMI 29.3
[~2018-07-09 08:56] MED LIST changes: -LACTATED RINGERS 1,000 ML IV SCH; -LIDOCAINE 1% 20 ML VIAL (10MG/ML) FOR IV START INTRADERMA PRN; +SODIUM CHLORIDE 0.9% 1,000 ML IV SCH
[2018-07-09] MEDS ORDERED: SODIUM CHLORIDE 0.9% 500 ML 500 ML IV ONE (09:15)
[2018-07-09 09:22] VITALS: PULSE 91; RESP 16; TEMP 97.6
[2018-07-09 10:58] VITALS: BP 112/69
--- NOTE | 2018-07-09 16:05 | P.PCN ---
Preoperative Diagnosis: Diagnosis Syncope Twelve-lead ECG shows sinus rhythm normal TN narrow QRS normal ST segments Tilt table test for protocol Baseline blood pressure 126/71 mmHg, Baseline heart is 70 beats a minute patient was tilted upright at an angle of 70 per protocol she complained of being dizzy and lightheaded without any change in blood pressure. Was a minimal increase in heart rate by about 15 points in the first 10 minutes Patient is laid supine heart rate dropped back into the 90s blood pressure still remained normal Impression Very mild orthostatic intolerance that could contribute to the patient's symptoms No evidence for neurocardiogenic syncope during this test
== END 2018-07-09 11:08 | disposition home or self-care (01) ==
LOC: CATHEP 08:56
PROVIDERS: ATTEND Internal Medicine Clinical Cardiac Electrophysiology
DX: R55 Syncope and collapse (principal)
CPT/HCPCS: 93660

== ENCOUNTER → 2018-09-11 | Outpatient (CLI) | payer OTHER ==
--- NOTE | 2018-09-11 15:19 | XR ---
EXAMINATION TYPE: XR chest 2V DATE OF EXAM: 09/11/2018 COMPARISON: Prior chest x-ray 02/24/2018 HISTORY: Spondylosis, preop TECHNIQUE: Frontal and lateral views of the chest are obtained. FINDINGS: There is no focal air space opacity, pleural effusion, or pneumothorax seen. The cardiac silhouette size is within normal limits. The osseous structures are intact. IMPRESSION: No acute cardiopulmonary process.
[2018-09-11 15:33] LABS: Basophils % (A) 1 %; Eosinophils # (A) 0.1 k/uL (0-0.7); Eosinophils % (A) 2 %; HCT 41.8 % (34.0-46.0); Lymphocytes # (A) 1.2 k/uL (1.0-4.8); Lymphocytes % (A) 23 %; MCH 30.2 pg (25.0-35.0); MCHC 33.4 g/dL (31.0-37.0); MCV 90.5 fL (80.0-100.0); Mean Platelet Volume 7.3; Monocytes # (A) 0.2 k/uL (0-1.0); Monocytes % (A) 5 %; Neutrophils # (A) 3.5 k/uL (1.3-7.7); Neutrophils % (A) 69 %; Platelet Count 188 k/uL (150-450); RBC 4.62 m/uL (3.80-5.40); RDW 12.6 % (11.5-15.5); WBC 5.1 k/uL (3.8-10.6)
[2018-09-11 15:37] LABS: INR 0.9 (<1.2); Partial Thromboplastin Time 25.3 sec (22.0-30.0); Prothrombin Time 9.9 sec (9.0-12.0)
[2018-09-11 15:43] LABS: Appearance,Urine Clear (Clear); Bacteria,Urine Many /hpf; Bilirubin,Urine Negative (Negative); Blood,Urine Negative (Negative); Color,Urine Light Yellow; Glucose,Urine (UA) Negative (Negative); Ketones,Urine Negative (Negative); Leukocyte Esterase,Urine Small (Negative); Mucus,Urine Rare /hpf; Nitrite,Urine Negative (Negative); Protein,Urine Negative (Negative); RBC,Urine 1 /hpf (0-5); Specific Gravity,Urine 1.008 (1.001-1.035); Squamous Epithelial Cell,Urine 2 /hpf (0-4); Urobilinogen,Urine <2.0 mg/dL (<2.0); WBC,Urine 14 /hpf (0-5)
[2018-09-11 15:44] LABS: Anion Gap 10 mmol/L; Blood Urea Nitrogen 12 mg/dL (7-17); Carbon Dioxide 24 mmol/L (22-30); Chloride 105 mmol/L (98-107); Glucose 102 mg/dL (74-99); Potassium 4.4 mmol/L (3.5-5.1); Sodium 139 mmol/L (137-145)
== END | disposition home or self-care (01) ==
LOC: RADXRMAIN 13:09
PROVIDERS: ATTEND Specialist
DX: M47.892 Other spondylosis, cervical region (principal)
CPT/HCPCS: 36415; 71046; 80051; 81001; 82565; 82947; 84520; 85025; 85610; 85730; 87070; 93005

== ENCOUNTER 2018-12-30 11:18 | Day surgery (SDC) | payer OTHER ==
[2018-12-25 12:29] VITALS: BMI 32.2
[~2018-12-30 11:18] MED LIST changes: +LACTATED RINGERS 1,000 ML IV SCH
[2018-12-30 11:39] VITALS: TEMP 97.8
[2018-12-30] MEDS ORDERED: LACTATED RINGERS 1,000 ML IV ONE (11:49)
[2018-12-30] MEDS ORDERED: ATROPINE SULFATE 0.4 MG/ML 1 ML VIAL IM ONE (11:50)
[2018-12-30] MEDS ORDERED: LIDOCAINE 1% 20 ML VIAL (10MG/ML) FOR IV START INTRADERMA ONE (11:50)
[2018-12-30] MEDS ORDERED: LIDOCAINE 2% (PF) 20 MG/ML 5 ML VIAL INHALATION ONE (11:56)
[2018-12-30] MEDS ORDERED: ATROPINE SULFATE 0.4 MG/ML 20 ML VIAL IM ONE (11:56)
[2018-12-30] MEDS ORDERED: LIDOCAINE VISCOUS 300 MG/15 ML CUP MUCOUS MEM ONE (11:56)
[2018-12-30] MEDS ORDERED: ALBUTEROL NEBULIZED 2.5 MG/3 ML INHALATION ONE (11:56)
[2018-12-30] MEDS ORDERED: GLYCOPYRROLATE 0.2 MG/ML 2 ML VIAL ONE (12:57)
[2018-12-30] MEDS ORDERED: KETAMINE 10 MG/ML 20 ML VIAL ONE (12:57)
[2018-12-30] MEDS ORDERED: LIDOCAINE 1% INJ 10MG/ML (20 ML MDV) ONE (12:57)
[2018-12-30] MEDS ORDERED: MIDAZOLAM 2 MG/2 ML VIAL ONE (12:57)
[2018-12-30] MEDS ORDERED: fentaNYL (PF) 50 MCG/ML 2 ML AMP ONE (12:57)
[2018-12-30] MEDS ORDERED: PROPOFOL 10 MG/ML 20 ML VIAL IV ONE (12:57)
[2018-12-30] MEDS ORDERED: LIDOCAINE 2% INJ 20 MG/ML INTRATRACH ONE (13:15)
[2018-12-30 13:56] VITALS: BP 127/84; PULSE 99; RESP 16
--- NOTE | 2018-12-30 14:33 | PCN ---
PROCEDURE NOTE PROCEDURE: Bronchoscopy, airway examination, therapeutic lavage, BAL right middle lobe. PREOPERATIVE DIAGNOSIS: Tracheobronchomalacia, asthma, retained secretions and dysphonia. POSTOPERATIVE DIAGNOSIS: Tracheobronchomalacia, asthma, retained secretions and dysphonia. INSTRUCTOR OF EDUCATION: Dr. Hogan and Dr. Maldonado. There was informed consent and universal timeout. Anesthesia provided general anesthesia. After the patient was adequately sedated and being fully monitored, the bronchoscope was inserted through the right nostril. It passed through the right nasopharynx into the oropharynx. The hypopharynx was identified and topicalized. Of note was the fact that the right vocal cord moved very poorly. It did not completely move to the midline. The left vocal cord appeared normal. The anterior commissure appeared normal. There was some asymmetry in the arytenoids. The piriform sinuses, vallecula and epiglottis all appeared normal. After topicalization, the bronchoscope was pushed through the glottic opening into the trachea. There was significant amount of tracheomalacia. The membranous trachea really collapsed down when the patient exhaled or coughed. The tracheal jazmín was sharp. The right and left mainstem were topicalized. There was also significant amount of bronchomalacia. The right upper lobe and its 3 segments, right middle lobe and its 2 segments, right lower lobe and its 5 segments, left upper lobe proper and its 2 segments, the lingula and its 2 segments and left lower lobe and its 4 segments all had similar findings of diffuse bronchitis and airway erythema and hyperemia. There was some secretions noted. There was some mild mucosal friability. There was no dominant mass or tumor. The bronchoscope was then wedged into the right middle lobe. The BAL took place. The patient tolerated the procedure well. Additional secretions were suctioned. The bronchoscope was withdrawn. Again, we get another look at the vocal cords. The right vocal cord again appeared not to move. I suspect there was some sort of complication following the cervical fusion surgery she had recently. Additional recommendations and suggestions are forthcoming. The patient will be recovered. The BAL fluid was sent to the laboratory for analysis. MMODL / IJN: [id number] /
[2018-12-30 17:50] LABS: Appearance,BF Hazy; Nucleated Cells, Body Fluid 7 /uL; RBC, Body Fluid 6 /uL
== END 2018-12-30 14:03 | disposition home or self-care (01) ==
LOC: ORWHC2ENDO 11:18
PROVIDERS: ATTEND Internal Medicine Critical Care Medicine
DX: J39.8 Other specified diseases of upper respiratory tract (principal); J45.909 Unspecified asthma, uncomplicated; R06.09 Other forms of dyspnea; J98.09 Other diseases of bronchus, not elsewhere classified; I10 Essential (primary) hypertension; R49.0 Dysphonia; K21.9 Gastro-esophageal reflux disease without esophagitis; G43.909 Migraine, unspecified, not intractable, without status migrainosus; K44.9 Diaphragmatic hernia without obstruction or gangrene; F32.9 Major depressive disorder, single episode, unspecified; Z79.899 Other long term (current) drug therapy; Z79.1 Long term (current) use of non-steroidal anti-inflammatories (NSAID); Z98.1 Arthrodesis status; Z86.73 Personal history of transient ischemic attack (TIA), and cerebral infarction without residual deficits
CPT/HCPCS: 94640; 87798 ×3; 87496; 87498; 87529; 88108; 88305; 89050; 87252; 87502; 87634; 87070; 87205; 87116; 87102; 87206; 31624; J2001 ×3; J2250; J0461; J3010; J2704

== ENCOUNTER → 2018-12-30 | Outpatient (CLI) | payer OTHER ==
--- NOTE | 2018-12-31 08:27 | CT ---
EXAMINATION TYPE: CT soft tissue neck w con DATE OF EXAM: 12/30/2018 COMPARISON: 02/25/2018 HISTORY: Dysphasia. Pt had C5-6 fusion sx October 05. She's had difficulty speaking since CT DLP: 625 mGycm CONTRAST: Patient injected with 100 mL of Isovue 300. TECHNIQUE: Axial images at 3 mm thick sections. Reconstructed images in the coronal plane and sagitt al plane are reviewed. FINDINGS: Limited CT sections are obtained the lung apices. The lung apices appear clear. CT neck: The torus tubarius and fossa of Rosenmuller are normal. Media Services Director spaces are normal. Para nasal sinuses and mastoid air cells are clear. Parotid glands appear normal and symmetrical. Submandibular glands, are normal. Parapharyngeal spac es are normal. No suspicious adenopathy is evident. The hypopharynx appears within normal limits. There may be some mild posterior right false vocal cord deviation towards the midline. The subglotti c airway appears unremarkable. Thyroid as visualized is normal. Osseous structures are normal. IMPRESSIONS: 1. There may be some medial deviation of the posterior false vocal cord level on the right. True voca l cord level in the coronal plane appears normal.
== END | disposition home or self-care (01) ==
LOC: RADCTMAIN 17:21
PROVIDERS: ATTEND Internal Medicine Critical Care Medicine
DX: R13.10 Dysphagia, unspecified (principal)
CPT/HCPCS: 70491; Q9967

== ENCOUNTER → 2019-01-08 | Outpatient (CLI) | payer OTHER ==
--- NOTE | 2019-01-08 12:57 | FL ---
MODIFIED SWALLOW / DEGLUTITION STUDY EXAMINATION TYPE: FL barium swallow w video DATE OF EXAM: 01/08/2019 CLINICAL HISTORY: 58-year-old female cervical fusion on 10/05/2018 with hoarseness, cough, and choking on liquids. Dysphagia. TECHNIQUE: Deglutition study is performed utilizing thin liquid barium, honey and nectar thick liqui d barium, barium thick applesauce, and barium coated cracker. COMPARISON: None. Total fluoroscopy time: 1.07 minutes. Total images: None. Real-time fluoroscopy support was provided to speech pathology. FINDINGS: Post surgical changes of C5-C6 ACDF. There is a degenerative anterolisthesis above the fusion at C4-C 5. The oral and pharyngeal phases show satisfactory initiation and propagation with all modalities teste d. Normal mastication is seen with solid modalities tested. There is no evidence of penetration or aspiration with any modality tested. No significant pharyngeal residue was appreciated. IMPRESSION: Functional swallow. Status post C5-C6 ACDF. Please refer to speech therapist notes for further details if necessary.
== END | disposition home or self-care (01) ==
LOC: RADFLMAIN 11:30
PROVIDERS: ATTEND Internal Medicine Critical Care Medicine
DX: R13.10 Dysphagia, unspecified (principal)
CPT/HCPCS: 74230

== ENCOUNTER 2019-08-16 15:28 | Emergency (ER) | payer OTHER ==
--- NOTE | 2019-08-16 17:19 | XR ---
EXAMINATION TYPE: XR chest 2V DATE OF EXAM: 08/16/2019 COMPARISON: 09/11/2018 HISTORY: Cough TECHNIQUE: FINDINGS: Heart and mediastinum are normal. Lungs are clear of infiltrate. There is no pleural effusi on. Bony thorax is intact. IMPRESSION: No active cardiopulmonary disease. Normal heart.
--- NOTE | 2019-08-16 17:24 | ED ---
General Adult HPI - General Chief complaint: Upper Respiratory Infection Stated complaint: breathing problems/asthma Time Seen by Provider: 08/16/19 16:08 Source: patient, RN notes reviewed Mode of arrival: ambulatory Limitations: no limitations - History of Present Illness Initial comments: 58-year-old female with a past mental history of asthma, CVA, GERD, hyperlipidemia, hypertension presents to the emergency department for chief complaint of cough. States she has had cough and congestion for the past 10 days. States cough does not seem to be improving. States she initially had fevers however those have resolved. Patient denies shortness of breath. Denies chest pain. States she has been using her rescue inhaler at home.Patient has no other complaints at this time including shortness of breath, chest pain, abdominal pain, nausea or vomiting, headache, or visual changes. - Related Data Home Medications Medication Instructions Recorded Confirmed Cyclobenzaprine [Flexeril] 10 mg PO TID PRN 03/06/18 12/25/18 Aspirin EC [Ecotrin Low Dose] 81 mg PO DAILY 04/23/18 12/25/18 Atorvastatin [Lipitor] 20 mg PO HS 04/23/18 12/25/18 Butalb/APAP/Caff 50-325-40Mg 1 tab PO TID PRN 04/23/18 12/25/18 [Fioricet 50-325-40] DULoxetine HCL [Cymbalta] 60 mg PO DAILY 04/23/18 12/25/18 Ibuprofen [Motrin] 800 mg PO TID PRN 04/23/18 12/25/18 Montelukast [Singulair] 10 mg PO HS 04/23/18 12/25/18 Zonisamide [Zonegran] 100 mg PO DAILY 04/23/18 12/25/18 Albuterol Sulfate [Albuterol 2 puff PO BID 12/25/18 12/25/18 Sulfate Hfa] Ketorolac [Toradol] 10 mg PO DIRECTED 12/25/18 12/25/18 Meclizine [Antivert] 12.5 mg PO TID PRN 12/25/18 12/25/18 Omeprazole [PriLOSEC] 20 mg PO AC-BRKFST 12/25/18 12/25/18 Ondansetron [Zofran] 4 mg PO Q8HR PRN 12/25/18 12/25/18 diphenhydrAMINE [Benadryl] 25 mg PO DIRECTED 12/25/18 12/25/18 Previous Rx's Medication Instructions Recorded Verapamil Sr [Isoptin Sr] 120 mg PO HS #30 tab 02/27/18 Azithromycin [Zithromax Z-pack] 250 mg PO DIRECTED #6 tab 08/16/19 predniSONE 50 mg PO DAILY #5 tablet 08/16/19 Allergies Allergy/AdvReac Type Severity Reaction Status Date / Time No Known Allergies Allergy Verified 08/16/19 16:05 Review of Systems ROS Statement: Those systems with pertinent positive or pertinent negative responses have been documented in the HPI. ROS Other: All systems not noted in ROS Statement are negative. Past Medical History Past Medical History: Asthma, CVA/TIA, GERD/Reflux, Hyperlipidemia, Hypertension Additional Past Medical History / Comment(s): HEADACHES, CHRONIC BACK AND NECK PAIN (CERVICAL FUSION 09/2018), STATES "SICKENING OF THE HEART", OCCASIONAL SWELLING LEFT LEG, STATES TIA FEBRUARY 2018 AND HAS WEAKNESS & DIZZINESS & CONFUSION SINCE THEN., USING WALKER., STOMACH ULCER, HIATAL HERNIA. , HX OF KIDNEY INFECTIONS., LARYNGEAL PALSY DURING CERVICAL SURGERY & DYSPHAGIA (FROM [facility]) History of Any Multi-Drug Resistant Organisms: None Reported Past Surgical History: Back Surgery, Tonsillectomy, Tubal Ligation Additional Past Surgical History / Comment(s): EGD, CERVICAL FUSION (09/2018). COLONOSCOPY Past Anesthesia/Blood Transfusion Reactions: No Reported Reaction Past Psychological History: Anxiety, Depression Smoking Status: Never smoker Past Alcohol Use History: None Reported Past Drug Use History: None Reported - Past Family History Father Additional Family Medical History / Comment(s): schizoprenia Mother Family Medical History: COPD, CVA/TIA General Exam Limitations: no limitations General appearance: alert, in no apparent distress Head exam: Present: atraumatic, normocephalic, normal inspection Eye exam: Present: normal appearance, PERRL, EOMI. Absent: scleral icterus, conjunctival injection, periorbital swelling ENT exam: Present: normal exam, normal oropharynx, mucous membranes moist, TM's normal bilaterally, normal external ear exam Neck exam: Present: normal inspection, full ROM. Absent: tenderness, meningismus, lymphadenopathy Respiratory exam: Present: normal lung sounds bilaterally. Absent: respiratory distress, wheezes, rales, rhonchi, stridor Cardiovascular Exam: Present: regular rate, normal rhythm, normal heart sounds. Absent: systolic murmur, diastolic murmur, rubs, gallop, clicks GI/Abdominal exam: Present: soft, normal bowel sounds. Absent: distended, tenderness, guarding, rebound, rigid Neurological exam: Present: alert Course Vital Signs 08/16/19 16:02 Temperature 98.6 F Pulse Rate 95 Respiratory 22 Rate Blood Pressure 132/77 O2 Sat by Pulse 98 Oximetry Medical Decision Making - Medical Decision Making Vitals are unremarkable. Patient is 98% on room air. Afebrile. Lungs are clear to auscultation bilaterally. Patient is noted to be coughing and congested in the exam room. Chest x-ray shows no active cardiopulmonary disease. However given some induration attending patient will be treated with a Z-August and steroids given her history of asthma. She will follow up with primary care in 1-2 days. She'll return if she has any worsening symptoms. Disposition Clinical Impression: Cough Disposition: HOME SELF-CARE Condition: Good Instructions (If sedation given, give patient instructions): Upper Respiratory Infection (ED) Additional Instructions: Please take antibiotic as directed. Take steroids as directed. Drink plenty of fluids. Follow-up with primary care in 1-2 days. Return to the emergency department if you have any worsening symptoms. Prescriptions: predniSONE 50 mg PO DAILY #5 tablet Azithromycin [Zithromax Z-pack] 250 mg PO DIRECTED #6 tab Is patient prescribed a controlled substance at d/c from ED?: No Referrals: Joss Archer MD [Primary Care Provider] - 1-2 days Time of Disposition: 17:37
[2019-08-16 19:23] VITALS: BP 123/80; PULSE 97; RESP 18; TEMP 98.2
== END 2019-08-16 18:16 | disposition home or self-care (01) ==
LOC: EC 15:28
DX: R05 Cough (principal); R09.89 Other specified symptoms and signs involving the circulatory and respiratory systems; K21.9 Gastro-esophageal reflux disease without esophagitis; E78.5 Hyperlipidemia, unspecified; I10 Essential (primary) hypertension; G89.29 Other chronic pain; F32.9 Major depressive disorder, single episode, unspecified; F41.9 Anxiety disorder, unspecified; Z79.1 Long term (current) use of non-steroidal anti-inflammatories (NSAID); Z79.82 Long term (current) use of aspirin; Z79.899 Other long term (current) drug therapy; Z87.09 Personal history of other diseases of the respiratory system; Z86.73 Personal history of transient ischemic attack (TIA), and cerebral infarction without residual deficits; Z98.1 Arthrodesis status; Z82.5 Family history of asthma and other chronic lower respiratory diseases
CPT/HCPCS: 71046; 99283

== ENCOUNTER 2020-02-03 10:28 | Day surgery (SDC) | payer OTHER ==
[2020-01-31 14:38] VITALS: BMI 30.2
[~2020-02-03 10:28] MED LIST changes: +ALBUTEROL NEB (CONC) 2.5 MG/0.5 ML INHALATION ONE; +ATROPINE SULFATE 0.4 MG/ML 1 ML VIAL IM ONE; +LIDOCAINE 2% (PF) 20 MG/ML 5 ML VIAL INHALATION ONE; +LIDOCAINE VISCOUS 300 MG/15 ML CUP MUCOUS MEM ONE
[2020-02-03] MEDS ORDERED: ATROPINE SULFATE 0.4 MG/ML 1 ML VIAL ONE (10:55)
[2020-02-03] MEDS ORDERED: KETAMINE 10 MG/ML 20 ML VIAL ONE (11:30)
[2020-02-03] MEDS ORDERED: LIDOCAINE 1% INJ 10MG/ML (20 ML MDV) ONE (11:30)
[2020-02-03] MEDS ORDERED: fentaNYL (PF) 50 MCG/ML 2 ML AMP ONE (11:30)
[2020-02-03] MEDS ORDERED: PROPOFOL 10 MG/ML 20 ML VIAL IV ONE (11:30)
[2020-02-03] MEDS ORDERED: MIDAZOLAM 2 MG/2 ML VIAL ONE (11:30)
[2020-02-03 15:27] LABS: Glucose,Whole Blood 95 mg/dL (75-99)
--- NOTE | 2020-02-03 20:11 | PCN ---
PROCEDURE NOTE PROCEDURE: Bronchoscopy, airway examination, therapeutic lavage, BAL. OPERATORS: Dr. Hogan, Dr. Maldonado and Meme Irvin. PREOPERATIVE DIAGNOSIS: Severe asthma, tracheomalacia. POSTOPERATIVE DIAGNOSIS: Severe asthma, tracheomalacia. Anesthesia provided general anesthesia. There was informed consent and universal timeout. The patient's procedure took place in room #1. PROCEDURE DESCRIPTION: After the patient was adequately sedated and being fully monitored, the bronchoscope was inserted through the right nostril. It passed through the right nasopharynx into the oropharynx. The hypopharynx was then identified. The hypopharyngeal structures, including the anterior commissure, true cords, false cords, arytenoids, piriform sinuses, right and left valleculae and epiglottis, all appeared normal. The glottic opening was topicalized with lidocaine. The bronchoscope was pushed through the glottic opening into the trachea. The trachea appeared relatively normal. Tracheal jazmín was sharp. The right and left mainstem were topicalized. There was a mild to moderate degree of tracheomalacia in the bronchial air tubes noted more distally. This was more so, I believe, on the left side than on the right side. There were thick secretions noted. They were suctioned with some difficulty. The right upper lobe and its 3 segments, the right middle lobe and its 2 segments, the right lower lobe and its 5 segments, the left upper lobe proper and its 2 segments, the lingula and its 2 segments, and the left lower lobe and its 4 segments all had similar findings of mild to moderate bronchitis. Again, there was some degree of mostly bronchomalacia. There was no dominant mass or tumor. There was no significant bleeding. There was some mucosal friability. There was some vascular engorgement. The bronchoscope was then wedged into the right middle lobe. There was a BAL. Thirty mL was recovered. The patient tolerated the procedure well. Additional secretions were suctioned and the bronchoscope was withdrawn. The patient will be recovered. The specimens will be sent to the laboratory for analysis. MMODL / IJN: [id number] /
[2020-02-03 22:25] LABS: Appearance,BF Clear; Color,BF Colorless; Nucleated Cells, Body Fluid 3 /uL; RBC, Body Fluid 18 /uL
[2020-02-04 08:09] VITALS: BP 160/78; PULSE 98; RESP 18; TEMP 98.7
== END 2020-02-03 12:30 | disposition home or self-care (01) ==
LOC: ORWHC2ENDO 10:28
PROVIDERS: ATTEND Internal Medicine Critical Care Medicine
DX: J45.909 Unspecified asthma, uncomplicated (principal); Q32.0 Congenital tracheomalacia; J98.4 Other disorders of lung; J98.09 Other diseases of bronchus, not elsewhere classified; F32.9 Major depressive disorder, single episode, unspecified; K21.9 Gastro-esophageal reflux disease without esophagitis; I10 Essential (primary) hypertension; G43.909 Migraine, unspecified, not intractable, without status migrainosus; E03.9 Hypothyroidism, unspecified; F41.9 Anxiety disorder, unspecified; Z79.82 Long term (current) use of aspirin; Z79.51 Long term (current) use of inhaled steroids; Z79.890 Hormone replacement therapy; Z79.899 Other long term (current) drug therapy; Z79.01 Long term (current) use of anticoagulants; Z98.1 Arthrodesis status; Z98.51 Tubal ligation status; Z90.89 Acquired absence of other organs; Z98.890 Other specified postprocedural states; Z86.73 Personal history of transient ischemic attack (TIA), and cerebral infarction without residual deficits; Z82.49 Family history of ischemic heart disease and other diseases of the circulatory system; Z81.8 Family history of other mental and behavioral disorders; Z82.5 Family history of asthma and other chronic lower respiratory diseases
CPT/HCPCS: 88108; 88305; 89050; 87252; 87070; 87205; 87116; 87102; 87206; 31624; J2250; J0461; J2001; J3010; J2704; 87496; 87498; 87502; 87529; 87634; 87798

== ENCOUNTER → 2020-02-28 | Outpatient (CLI) | payer OTHER ==
[2020-02-29 02:00] LABS: Immunoglobulin E 3.35 IU/mL (0.00-114.00); Immunoglobulin E 3.71 IU/mL (0.00-114.00)
[2020-02-29 02:11] LABS: Codfish IgE <0.10 kU/L; Egg White IgE <0.10 kU/L
[2020-02-29 02:12] LABS: Peanut IgE <0.10 kU/L; Soybean IgE <0.10 kU/L
[2020-02-29 02:13] LABS: Clam IgE <0.10 kU/L; Shrimp IgE <0.10 kU/L
[2020-02-29 02:14] LABS: Scallop IgE <0.10 kU/L; Walnut IgE (Food) <0.10 kU/L
[2020-02-29 02:21] LABS: Aspergillus fumagatus IgE <0.10 kU/L; Cladosporian herbarum IgE <0.10 kU/L; Cockroach IgE <0.10 kU/L
[2020-02-29 02:22] LABS: Alternaria alternata IgE <0.10 kU/L; Birch IgE <0.10 kU/L; Maple (Box Elder) IgE <0.10 kU/L
[2020-02-29 02:23] LABS: Elm IgE <0.10 kU/L; Oak IgE <0.10 kU/L; Ragweed,Common IgE <0.10 kU/L
[2020-02-29 02:24] LABS: Dermato. farinae IgE <0.10 kU/L; Red Top (Bentgrass) IgE <0.10 kU/L
[2020-02-29 02:25] LABS: Cat Epith & Dander IgE <0.10 kU/L; Dog Dander IgE 0.11 kU/L
== END | disposition home or self-care (01) ==
LOC: LABWHC1 14:15
PROVIDERS: ATTEND Internal Medicine Critical Care Medicine
DX: J45.909 Unspecified asthma, uncomplicated (principal)
CPT/HCPCS: 36415; 82785; 85008; 86003

== ENCOUNTER 2020-09-20 16:12 | Emergency (ER) | payer OTHER ==
[2020-09-20 16:17] VITALS: PULSE 90; TEMP 97.5
[2020-09-20] MEDS ORDERED: SODIUM CHLORIDE 0.9% 1,000 ML IV STA (16:45)
[2020-09-20] MEDS ORDERED: ONDANSETRON 4 MG/2 ML VIAL IVP STA (16:45)
[2020-09-20] MEDS ORDERED: MORPHINE SULFATE 4 MG/ML SYRINGE IV STA (16:45)
--- NOTE | 2020-09-20 16:46 | ED ---
Abdominal Pain HPI - General Chief Complaint: Abdominal Pain Stated Complaint: Abd Pain Time Seen by Provider: 09/20/20 16:23 Source: patient Mode of arrival: ambulatory Limitations: no limitations - History of Present Illness Initial Comments: Patient is a 60-year-old female with past medical history of asthma, CVA, hypertension, hyperlipidemia who presents to the emergency room with reported left flank pain. Patient reports that her symptoms started 2 days ago. She began having left lower quadrant abdominal pain and difficulties with urination. States that she drank a significant amount of water in an attempt to make herself urinate. The pain then progressed up to her left flank. Patient's began having hematuria yesterday. Also reports increased frequency of urination. Patient has had multiple urinary tract infections in the past. Also reports a history of kidney stones. She denies fevers or chills. Admits nausea without vomiting. No previous history of abdominal surgeries. No chest pain or shortness of breath. Has not attempted to take any medications for her pain. No other alleviating, precipitating or modifying factors. - Related Data Home Medications Medication Instructions Recorded Confirmed Atorvastatin [Lipitor] 20 mg PO HS 04/23/18 09/20/20 Butalb/APAP/Caff 50-325-40Mg 1 tab PO TID PRN 04/23/18 09/20/20 [Fioricet 50-325-40] Montelukast [Singulair] 10 mg PO HS 04/23/18 09/20/20 Zonisamide [Zonegran] 100 mg PO DAILY 04/23/18 09/20/20 Albuterol Sulfate [Albuterol 2 puff INHALATION RT-Q4H PRN 12/25/18 09/20/20 Sulfate Hfa] Ondansetron [Zofran] 4 mg PO Q8HR PRN 12/25/18 09/20/20 Baclofen [Lioresal] 10 mg PO TID 01/31/20 09/20/20 DULoxetine HCL [Cymbalta] 30 mg PO HS 01/31/20 09/20/20 Famotidine [Pepcid] 20 mg PO DAILY 01/31/20 09/20/20 Levothyroxine Sodium [Synthroid] 50 mcg PO DAILY 01/31/20 09/20/20 DULoxetine HCL [Cymbalta] 60 mg PO DAILY 09/20/20 09/20/20 Fexofenadine HCl [Ashli Allergy] 180 mg PO DAILY 09/20/20 09/20/20 Fluticasone Nasal [place] [Flonase 1 spray EA NOSTRIL BID PRN 09/20/20 09/20/20 Nasal Gilbert] HYDROcodone/APAP 5-325MG [[place] 1 tab PO BID PRN 09/20/20 09/20/20 5-325] Verapamil Sr [Isoptin Sr] 120 mg PO BID 09/20/20 09/20/20 Previous Rx's Medication Instructions Recorded Cephalexin [Keflex] 500 mg PO Q6HR #28 cap 09/20/20 Phenazopyridine [Pyridium] 200 mg PO TID #6 tablet 09/20/20 Allergies Allergy/AdvReac Type Severity Reaction Status Date / Time No Known Allergies Allergy Verified 09/20/20 18:14 Review of Systems ROS Statement: Those systems with pertinent positive or pertinent negative responses have been documented in the HPI. ROS Other: All systems not noted in ROS Statement are negative. Past Medical History Past Medical History: Asthma, CVA/TIA, GERD/Reflux, Hyperlipidemia, Hypertension, Thyroid Disorder Additional Past Medical History / Comment(s): HEADACHES, CHRONIC BACK AND NECK PAIN (CERVICAL FUSION 09/2018), STATES "SICKENING OF THE HEART", OCCASIONAL SWELLING LEFT LEG, STATES TIA FEBRUARY 2018 AND HAS WEAKNESS & DIZZINESS & CONFUSION SINCE THEN., USING WALKER., STOMACH ULCER, HIATAL HERNIA. , HX OF KIDNEY INFECTIONS., LARYNGEAL PALSY DURING CERVICAL SURGERY & DYSPHAGIA (FROM [facility]). tracheomalacia Pt. had Violeta Manzano "at some point" History of Any Multi-Drug Resistant Organisms: None Reported Past Surgical History: Back Surgery, Tonsillectomy, Tubal Ligation Additional Past Surgical History / Comment(s): EGD, CERVICAL FUSION (09/2018). COLONOSCOPY. bronchoscopy Past Anesthesia/Blood Transfusion Reactions: No Reported Reaction Past Psychological History: Anxiety, Depression Smoking Status: Never smoker Past Alcohol Use History: None Reported Past Drug Use History: None Reported - Past Family History Father Additional Family Medical History / Comment(s): schizoprenia Mother Family Medical History: COPD, CVA/TIA General Exam Limitations: no limitations General appearance: alert, in no apparent distress Head exam: Present: atraumatic, normocephalic, normal inspection Eye exam: Present: normal appearance, PERRL, EOMI. Absent: scleral icterus, conjunctival injection, periorbital swelling ENT exam: Present: normal exam, mucous membranes moist Neck exam: Present: normal inspection. Absent: tenderness, meningismus, lymphadenopathy Respiratory exam: Present: normal lung sounds bilaterally. Absent: respiratory distress, wheezes, rales, rhonchi, stridor Cardiovascular Exam: Present: regular rate, normal rhythm, normal heart sounds. Absent: systolic murmur, diastolic murmur, rubs, gallop, clicks GI/Abdominal exam: Present: soft, normal bowel sounds. Absent: distended, tenderness, guarding, rebound, rigid Extremities exam: Present: normal inspection, full ROM, normal capillary refill. Absent: tenderness, pedal edema, joint swelling, calf tenderness Back exam: Present: normal inspection, CVA tenderness (L) Neurological exam: Present: alert, oriented X3, CN II-XII intact Psychiatric exam: Present: normal affect, normal mood Skin exam: Present: warm, dry, intact, normal color. Absent: rash Course Vital Signs 09/20/20 09/20/20 16:13 18:50 Temperature 97.5 F L Pulse Rate 90 90 Respiratory 17 16 Rate Blood Pressure 121/71 114/74 O2 Sat by Pulse 97 95 Oximetry Medical Decision Making - Medical Decision Making Upon arrival patient is placed in room 19. A thorough history and physical exam was performed. IV is established. Patient is given a liter bolus of normal saline. 4 mg of morphine administered. Laboratory studies are conducted and the patient on for CT. Lab studies demonstrate a normal white count. Creatinine is 0.67. Urinalysis demonstrates greater than 182 red blood cells and white blood cells with many white blood cell clumps. Specimen sent for culture. CT is reviewed and demonstrates cystitis. Punctate nonobstructing right renal calculus. No ureteral stones identified. Patient is given a dose of Pyridium and Rocephin. Results are discussed the patient. She'll be treated clinically as a pyelonephritis. Patient is to follow-up with her primary care doctor in 2-4 days. Return to the emergency room for any new or worsening symptoms. Prescriptions for Keflex and Pyridium sent to the pharmacy. Patient was discharged home in stable condition - Lab Data Result diagrams: 09/20/20 17:37 09/20/20 17:37 Lab Results 09/20/20 09/20/20 09/20/20 Range/Units 17:37 17:37 17:37 WBC 10.5 (3.8-10.6) k/uL RBC 4.44 (3.80-5.40) m/uL Hgb 14.1 (11.4-16.0) gm/dL Hct 41.0 (34.0-46.0) % MCV 92.4 (80.0-100.0) fL MCH 31.9 (25.0-35.0) pg MCHC 34.5 (31.0-37.0) g/dL RDW 12.6 (11.5-15.5) % Plt Count 172 (150-450) k/uL MPV 8.1 Neutrophils % 85 % Lymphocytes % 8 % Monocytes % 5 % Eosinophils % 1 % Basophils % 1 % Neutrophils # 8.9 H (1.3-7.7) k/uL Lymphocytes # 0.9 L (1.0-4.8) k/uL Monocytes # 0.5 (0-1.0) k/uL Eosinophils # 0.1 (0-0.7) k/uL Basophils # 0.1 (0-0.2) k/uL Sodium 136 L (137-145) mmol/L Potassium 4.5 (3.5-5.1) mmol/L Chloride 105 (98-107) mmol/L Carbon Dioxide 22 (22-30) mmol/L Anion Gap 9 mmol/L BUN 11 (7-17) mg/dL Creatinine 0.67 (0.52-1.04) mg/dL Est GFR (CKD-EPI)AfAm >90 (>60 ml/min/1.73 sqM) Est GFR (CKD-EPI)NonAf >90 (>60 ml/min/1.73 sqM) Glucose 108 H (74-99) mg/dL Plasma Lactic Acid Andrés (0.7-2.0) mmol/L Calcium 9.2 (8.4-10.2) mg/dL Total Bilirubin 0.6 (0.2-1.3) mg/dL AST 24 (14-36) U/L ALT 21 (4-34) U/L Alkaline Phosphatase 97 (38-126) U/L Total Protein 6.7 (6.3-8.2) g/dL Albumin 4.2 (3.5-5.0) g/dL Urine Color Dark Red Urine Appearance Turbid H (Clear) Urine RBC >182 H (0-5) /hpf Urine WBC >182 H (0-5) /hpf Urine WBC Clumps Many H (None) /hpf 09/20/20 Range/Units 17:37 WBC (3.8-10.6) k/uL RBC (3.80-5.40) m/uL Hgb (11.4-16.0) gm/dL Hct (34.0-46.0) % MCV (80.0-100.0) fL MCH (25.0-35.0) pg MCHC (31.0-37.0) g/dL RDW (11.5-15.5) % Plt Count (150-450) k/uL MPV Neutrophils % % Lymphocytes % % Monocytes % % Eosinophils % % Basophils % % Neutrophils # (1.3-7.7) k/uL Lymphocytes # (1.0-4.8) k/uL Monocytes # (0-1.0) k/uL Eosinophils # (0-0.7) k/uL Basophils # (0-0.2) k/uL Sodium (137-145) mmol/L Potassium (3.5-5.1) mmol/L Chloride (98-107) mmol/L Carbon Dioxide (22-30) mmol/L Anion Gap mmol/L BUN (7-17) mg/dL Creatinine (0.52-1.04) mg/dL Est GFR (CKD-EPI)AfAm (>60 ml/min/1.73 sqM) Est GFR (CKD-EPI)NonAf (>60 ml/min/1.73 sqM) Glucose (74-99) mg/dL Plasma Lactic Acid Andrés 1.2 (0.7-2.0) mmol/L Calcium (8.4-10.2) mg/dL Total Bilirubin (0.2-1.3) mg/dL AST (14-36) U/L ALT (4-34) U/L Alkaline Phosphatase (38-126) U/L Total Protein (6.3-8.2) g/dL Albumin (3.5-5.0) g/dL Urine Color Urine Appearance (Clear) Urine RBC (0-5) /hpf Urine WBC (0-5) /hpf Urine WBC Clumps (None) /hpf Disposition Clinical Impression: UTI (urinary tract infection), Pyelonephritis Disposition: HOME SELF-CARE Condition: Stable Instructions (If sedation given, give patient instructions): Kidney Infection (ED) Additional Instructions: Please follow-up with your primary care doctor in 2-4 days. Return to the emergency room for any new or worsening symptoms Prescriptions: Cephalexin [Keflex] 500 mg PO Q6HR #28 cap Phenazopyridine [Pyridium] 200 mg PO TID #6 tablet Is patient prescribed a controlled substance at d/c from ED?: No Referrals: Joss Archer MD [Primary Care Provider] - 1-2 days Time of Disposition: 18:48
[2020-09-20 17:54] LABS: Basophils # (A) 0.1 k/uL (0-0.2); Basophils % (A) 1 %; Eosinophils # (A) 0.1 k/uL (0-0.7); Eosinophils % (A) 1 %; HGB 14.1 gm/dL (11.4-16.0); Lymphocytes # (A) 0.9 k/uL (1.0-4.8); Lymphocytes % (A) 8 %; MCH 31.9 pg (25.0-35.0); MCHC 34.5 g/dL (31.0-37.0); MCV 92.4 fL (80.0-100.0); Mean Platelet Volume 8.1; Monocytes # (A) 0.5 k/uL (0-1.0); Monocytes % (A) 5 %; Neutrophils # (A) 8.9 k/uL (1.3-7.7); Neutrophils % (A) 85 %; Platelet Count 172 k/uL (150-450); RBC 4.44 m/uL (3.80-5.40); RDW 12.6 % (11.5-15.5); WBC 10.5 k/uL (3.8-10.6)
[2020-09-20 18:02] LABS: Appearance,Urine Turbid (Clear); Color,Urine Dark Red; RBC,Urine >182 /hpf (0-5); WBC,Urine >182 /hpf (0-5)
[2020-09-20 18:07] LABS: ALT 21 U/L (4-34); AST 24 U/L (14-36); African American GFR (CKD) >90 (>60 ml/min/1.73 sqM); Albumin 4.2 g/dL (3.5-5.0); Alkaline Phosphatase 97 U/L (38-126); Anion Gap 9 mmol/L; Blood Urea Nitrogen 11 mg/dL (7-17); Calcium 9.2 mg/dL (8.4-10.2); Carbon Dioxide 22 mmol/L (22-30); Chloride 105 mmol/L (98-107); Glucose 108 mg/dL (74-99); Non-African American GFR(CKD) >90 (>60 ml/min/1.73 sqM); Potassium 4.5 mmol/L (3.5-5.1); Sodium 136 mmol/L (137-145); Total Bilirubin 0.6 mg/dL (0.2-1.3); Total Protein 6.7 g/dL (6.3-8.2)
--- NOTE | 2020-09-20 18:19 | CT ---
EXAMINATION TYPE: CT abdomen pelvis wo con DATE OF EXAM: 09/20/2020 COMPARISON: 11/02/2011. HISTORY: Bilateral flank pain with hematuria and increased frequency of urination. CT DLP: 722.2 mGycm Automated exposure control for dose reduction was used. TECHNIQUE: Helical acquisition of images was performed from the lung bases through the pelvis. FINDINGS: LUNG BASES: No significant abnormality is appreciated. LIVER/GB: No significant abnormality is appreciated. PANCREAS: No significant abnormality is seen. SPLEEN: No significant abnormality is seen. ADRENALS: No significant abnormality is seen. KIDNEYS: Mild right hydronephrosis without definite obstructing calculus seen. Punctate nonobstructin g right renal calculus in the lower pole is seen. No significant left hydronephrosis or nephrolithias is. A 2.8 cm simple appearing right renal cyst. FREE AIR: No free air is visualized RETROPERITONEAL ADENOPATHY: None visualized REPRODUCTIVE ORGANS: No significant abnormality is seen URINARY BLADDER: Mild urinary bladder wall thickening. PELVIC ADENOPATHY: None visualized. OSSEOUS STRUCTURES: No significant abnormality is seen. BOWEL: No significant abnormality is seen. OTHER: None. IMPRESSION: MILD RIGHT HYDRONEPHROSIS WITHOUT DEFINITE OBSTRUCTING CALCULUS, SUGGESTIVE OF RECENTLY PASSED STONE. NO EVIDENCE OF LEFT OBSTRUCTIVE UROPATHY. Nonspecific mild urinary bladder wall thickening. Correlate for possible cystitis. Punctate nonobstructing right renal calculus. Incidental finding as above.
[2020-09-20] MEDS ORDERED: cefTRIAXone IN SWFI 1,000 MG/10 ML SYRINGE IVP STA (18:35)
[2020-09-20] MEDS ORDERED: PHENAZOPYRIDINE 200 MG TAB PO STA (18:40)
[2020-09-20 19:00] VITALS: BP 114/74; RESP 16
== END 2020-09-20 19:08 | disposition home or self-care (01) ==
LOC: EC 16:12
DX: N12 Tubulo-interstitial nephritis, not specified as acute or chronic (principal); N30.90 Cystitis, unspecified without hematuria; N20.0 Calculus of kidney; I10 Essential (primary) hypertension; E07.9 Disorder of thyroid, unspecified; J45.909 Unspecified asthma, uncomplicated; E78.5 Hyperlipidemia, unspecified; K21.9 Gastro-esophageal reflux disease without esophagitis; F32.9 Major depressive disorder, single episode, unspecified; F41.9 Anxiety disorder, unspecified; Z79.899 Other long term (current) drug therapy; Z79.890 Hormone replacement therapy; Z86.73 Personal history of transient ischemic attack (TIA), and cerebral infarction without residual deficits; Z87.442 Personal history of urinary calculi; Z98.51 Tubal ligation status
CPT/HCPCS: 36415; 80053; 83605; 85025; 81001; 87086; 87077; 87186; 74176; 99284; 96374; 96375 ×2; 96361; J2270; J2405; J0696

== ENCOUNTER → 2021-01-09 | Outpatient (CLI) | payer OTHER ==
[2021-01-09 21:03] LABS: Basophils # (A) 0.07 X 10*3/uL (0.00-0.10); Basophils % (A) 1.2 %; Eosinophils # (A) 0.09 X 10*3/uL (0.04-0.35); Eosinophils % (A) 1.6 %; HCT 38.2 % (37.2-46.3); HGB 12.3 g/dL (12.0-15.0); Lymphocytes # (A) 1.23 X 10*3/uL (0.90-5.00); Lymphocytes % (A) 21.5 %; MCH 30.4 pg (27.0-32.0); MCHC 32.2 g/dL (32.0-37.0); MCV 94.6 fL (80.0-97.0); Mean Platelet Volume 11.4 fL (9.5-12.2); Neutrophils # (A) 3.91 X 10*3/uL (1.80-7.70); Neutrophils % (A) 68.4 %; Platelet Count 207 X 10*3/uL (140-440); RBC 4.04 X 10*6/uL (4.10-5.20); Reticulocyte % 2.11 % (0.10-1.80); WBC 5.72 X 10*3/uL (4.50-10.00)
[2021-01-09 22:35] LABS: Luteinizing Hormone 40.3 mIU/mL
[2021-01-09 22:40] LABS: Follicle Stimulating Hormone 97.6 mIU/mL
[2021-01-09 22:46] LABS: Anti-DNA, DS unit <1.0 IU/mL; Anti-Smith Ab Interp NEGATIVE (NEGATIVE); Cyclic Citrull Pep IgG Unit <0.5 U/mL; Cyclic Citrullinated Pep IgG NEGATIVE (NEGATIVE); DNA Double-Stranded NEGATIVE (NEGATIVE); JO-1 IgG Antibody <0.2 AI; Scleroderma SC-70 Ab <0.2 AI
[2021-01-09 22:56] LABS: % Iron Saturation 24.07 (12.00-45.00); ALT 18 U/L (8-44); AST 17 U/L (13-35); African American GFR (CKD) 92.9 (60.0-200.0); Albumin/Globulin Ratio 2.21 (1.60-3.17); Alkaline Phosphatase 105 U/L (41-126); BUN/Creat Ratio 16.25 Ratio (12.00-20.00); C Reactive Protein <0.4 mg/dL (0.0-0.8); Calcium 8.9 mg/dL (8.7-10.3); Carbon Dioxide 21.5 mmol/L (21.6-31.8); Chloride 110 mmol/L (96-109); Ferritin 18.4 ng/mL (10.0-291.0); Globulin 1.9 g/dL (1.6-3.3); Glucose 123 mg/dL (70-110); Iron 71 ug/dL (50-170); Non-African American GFR(CKD) 80.1 (60.0-200.0); Potassium 3.8 mmol/L (3.5-5.5); Sodium 142 mmol/L (135-145); Total Bilirubin 0.3 mg/dL (0.3-1.2); Total Iron Binding Capacity 295 ug/dL (228-460); Total Protein 6.1 g/dL (6.2-8.2)
[2021-01-10 00:48] LABS: Erythrocyte Sedimentation Rate 8 mm/Hr (0-30)
[2021-01-10 06:36] LABS: Hemoglobin A1C 5.1 % (4.0-6.0)
== END | disposition home or self-care (01) ==
LOC: LABWHC1 14:01
PROVIDERS: ATTEND Psychiatry & Neurology Pain Medicine
DX: Z51.81 Encounter for therapeutic drug level monitoring (principal); M25.50 Pain in unspecified joint; R53.82 Chronic fatigue, unspecified; R53.81 Other malaise
CPT/HCPCS: 36415; 80053; 82306; 82533; 82607; 82626; 82728; 83001; 83002; 83003; 83036; 83516; 83540; 83550; 84207; 84305; 84439; 84443; 84466; 84481; 85025; 85045; 85652; 86038; 86140; 86200; 86225; 86235

== ENCOUNTER 2021-05-10 10:59 | Day surgery (SDC) | payer OTHER ==
[2021-05-09 09:23] VITALS: BMI 29.0
[~2021-05-10 10:59] MED LIST changes: +DEXAMETHASONE SOD PHOSPHATE 4 MG/ML 1 ML VIAL IV ONE; +HYDROmorphone 0.5 MG/0.5 ML SYRINGE IVP PRN; +ONDANSETRON 4 MG/2 ML VIAL IVP ONE; -SODIUM CHLORIDE 0.9% 1,000 ML IV SCH
[2021-05-10] MEDS ORDERED: LIDOCAINE 1% (10MG/ML) FOR IV START INTRADERMA ONE (11:39)
[2021-05-10] MEDS ORDERED: LIDOCAINE 1% INJ 10MG/ML (20 ML MDV) ONE (11:43)
[2021-05-10] MEDS ORDERED: KETAMINE 10 MG/ML 20 ML VIAL ONE (11:43)
[2021-05-10] MEDS ORDERED: fentaNYL (PF) 50 MCG/ML 2 ML AMP ONE (11:43)
[2021-05-10] MEDS ORDERED: PROPOFOL 10 MG/ML 20 ML VIAL IV ONE (11:43)
[2021-05-10] MEDS ORDERED: MIDAZOLAM 2 MG/2 ML VIAL ONE (11:43)
[2021-05-10] MEDS ORDERED: LIDOCAINE 2% INJ 20 MG/ML INTRATRACH ONE ×2 (11:45→11:51)
[2021-05-10 11:48] VITALS: TEMP 97.6
[2021-05-10 12:40] VITALS: BP 121/67; PULSE 97; RESP 18
--- NOTE | 2021-05-10 18:50 | PCN ---
PROCEDURE NOTE PULMONARY/CRITICAL CARE PROCEDURE NOTE: PROCEDURE PERFORMED: Bronchoscopy airway examination, therapeutic lavage, BAL. PREOPERATIVE DIAGNOSIS: Severe tracheobronchomalacia. POSTOPERATIVE DIAGNOSIS: Severe tracheobronchomalacia. Rule out infection. ORTHOPAEDIC TECHNOLOGIST: Dr. Hogan. DESCRIPTION OF PROCEDURE: Anesthesia provided general anesthesia. The patient's procedure was done in room 1. There was informed consent and universal timeout. After the patient was adequately sedated and being fully monitored, the bronchoscope was inserted through the right nostril. It passed through the right nasopharynx into the oropharynx. The hypopharynx was identified. The hypopharyngeal structures, including anterior commissure, true cords, false cords, arytenoids, piriform sinuses, right and left valleculae were all normal. The hypopharyngeal structures were a bit crowded. There was topicalization of the glottic opening. The bronchoscope was pushed through the glottic opening into the trachea. There was severe tracheomalacia. There were minimal secretions noted within the trachea. There were no masses or tumors within the trachea. Tracheal jazmín was sharp. The right and left mainstem were topicalized. The right upper lobe and its 3 segments, right middle lobe and its 2 segments, right lower lobe and its 5 segments, left upper lobe proper and its 2 segments, lingula and its 2 segments and left lower lobe and its 4 segments were all evaluated. The airways were very collapsible. The mucosa was mildly erythematous. There was some mucosal friability. There was no dominant mass or tumor. Thin secretions were noted throughout. The bronchoscope was then wedged into the right middle lobe. We did a formal BAL. Thirty mL of fluid was recovered. The fluid will be sent to the laboratory for analysis. The patient tolerated the procedure well. The bronchoscope was withdrawn and the patient will be recovered. There was no immediate complication. MMODL / IJN: [id number] /
[2021-05-10 19:20] LABS: Appearance,BF Hazy; Color,BF Colorless; Nucleated Cells, Body Fluid 31 /uL; RBC, Body Fluid 8 /uL
[2021-05-10 19:22] LABS: Mononuclear WBC,Body Fluid 54 %; Polynuclear WBC,Body Fluid 46 %; Total Cells Counted,Body Fluid 100
== END 2021-05-10 12:39 | disposition home or self-care (01) ==
LOC: ORWHC2ENDO 10:59
PROVIDERS: ATTEND Internal Medicine Critical Care Medicine
DX: J39.8 Other specified diseases of upper respiratory tract (principal); J98.09 Other diseases of bronchus, not elsewhere classified; J45.909 Unspecified asthma, uncomplicated; F32.9 Major depressive disorder, single episode, unspecified; R13.10 Dysphagia, unspecified; K21.9 Gastro-esophageal reflux disease without esophagitis; Z87.01 Personal history of pneumonia (recurrent); I10 Essential (primary) hypertension; G43.909 Migraine, unspecified, not intractable, without status migrainosus; E78.5 Hyperlipidemia, unspecified; E07.9 Disorder of thyroid, unspecified; Z86.73 Personal history of transient ischemic attack (TIA), and cerebral infarction without residual deficits; Z79.890 Hormone replacement therapy; Z79.51 Long term (current) use of inhaled steroids; Z79.899 Other long term (current) drug therapy; Z79.82 Long term (current) use of aspirin; Z79.891 Long term (current) use of opiate analgesic
CPT/HCPCS: 88108; 88305; 89050; 87252; 87070; 87205; 87116; 87102; 87206; 31624; J2001 ×2; J2250; J0461; J3010; J2704; 87496; 87498; 87502; 87529; 87634; 87798

== ENCOUNTER 2021-06-08 18:13 | Emergency (ER) | payer OTHER ==
[2021-06-08 19:08] VITALS: BP 136/80; PULSE 117; RESP 20; TEMP 98.6
--- NOTE | 2021-06-08 19:50 | ED ---
General Adult HPI - General Source: patient, family, RN notes reviewed, old records reviewed Mode of arrival: ambulatory Limitations: no limitations <Darren Chamorro - Last Filed: 06/08/21 19:48> <Gato Chaudhari - Last Filed: 06/10/21 01:30> - General Chief complaint: Psychiatric Symptoms Stated complaint: Suicidal Time Seen by Provider: 06/08/21 19:37 - History of Present Illness Initial comments: 60-year-old female presenting for mental health evaluation. Patient has had increased depression, thoughts of suicide. She denies suicide attempt. She is brought in with her daughters. She has multiple chronic medical conditions but no new physical complaints today. She has seen a therapist and counselor as an outpatient, not currently being seen by a psychiatrist. No previous inpatient psychiatric evaluations or treatment. (Darren Chamorro) - Related Data Home Medications Medication Instructions Recorded Confirmed Atorvastatin [Lipitor] 20 mg PO HS 04/23/18 05/09/21 Butalb/APAP/Caff 50-325-40Mg 1 tab PO TID PRN 04/23/18 05/09/21 [Fioricet 50-325-40] Montelukast [Singulair] 10 mg PO HS 04/23/18 05/09/21 Zonisamide [Zonegran] 100 mg PO DAILY 04/23/18 05/09/21 Albuterol Sulfate [Albuterol 2 puff INHALATION RT-Q4H PRN 12/25/18 05/09/21 Sulfate Hfa] Baclofen [Lioresal] 10 mg PO TID 01/31/20 05/09/21 DULoxetine HCL [Cymbalta] 30 mg PO HS 01/31/20 05/09/21 Famotidine [Pepcid] 20 mg PO DAILY 01/31/20 05/09/21 Levothyroxine Sodium [Synthroid] 50 mcg PO DAILY 01/31/20 05/09/21 DULoxetine HCL [Cymbalta] 60 mg PO DAILY 09/20/20 05/09/21 Fexofenadine HCl [Ashli Allergy] 180 mg PO DAILY PRN 09/20/20 05/09/21 Fluticasone Nasal [place] [Flonase 1 spray EA NOSTRIL BID PRN 09/20/20 05/09/21 Nasal [place]] Verapamil Sr [Isoptin Sr] 120 mg PO TID 09/20/20 05/09/21 Beclomethasone Dipropionate [Qvar 2 puff PO BID 03/26/21 05/09/21 80mcg Redihaler] Meclizine [Antivert] 12.5 mg PO BID PRN 03/26/21 05/09/21 Omeprazole [PriLOSEC] 20 mg PO AC-BID 03/26/21 05/09/21 Allergies Allergy/AdvReac Type Severity Reaction Status Date / Time No Known Allergies Allergy Verified 06/08/21 19:08 Review of Systems ROS Other: All systems not noted in ROS Statement are negative. <Darren Chamorro - Last Filed: 06/08/21 19:48> ROS Other: All systems not noted in ROS Statement are negative. <Gato Chaudhari - Last Filed: 06/10/21 01:30> ROS Statement: Those systems with pertinent positive or pertinent negative responses have been documented in the HPI. Past Medical History Past Medical History: Asthma, CVA/TIA, GERD/Reflux, Hyperlipidemia, Hypertension, Pneumonia, Thyroid Disorder Additional Past Medical History / Comment(s): HEADACHES, CHRONIC BACK AND NECK PAIN, STATES "THICKENING OF THE HEART", OCCASIONAL SWELLING LEFT LEG, STATES TIA FEBRUARY 2018 AND HAS WEAKNESS & DIZZINESS & CONFUSION SINCE TIA ., USING WALKER., STOMACH ULCER, HIATAL HERNIA. 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 tracheomalacia Pt. had Violeta Manzano, vitamin d defficiancy, anemia History of Any Multi-Drug Resistant Organisms: None Reported Past Surgical History: Tonsillectomy, Tubal Ligation Additional Past Surgical History / Comment(s): EGD, CERVICAL FUSION (09/2018). COLONOSCOPY. bronchoscopy Past Anesthesia/Blood Transfusion Reactions: No Reported Reaction Additional Past Anesthesia/Blood Transfusion Reaction / Comment(s): pt states layngeal palsy with difficulty swallowing after cervical surgery. maternal aunt and grandma difficulty waking after anesthesia Past Psychological History: Anxiety, Depression Smoking Status: Never smoker Past Alcohol Use History: None Reported Past Drug Use History: None Reported - Past Family History Father Family Medical History: Unable to Obtain Additional Family Medical History / Comment(s): schizoprenia Mother Family Medical History: COPD, CVA/TIA <Darren Chamorro - Last Filed: 06/08/21 19:48> General Exam Limitations: no limitations General appearance: alert, in no apparent distress Head exam: Present: atraumatic, normocephalic Eye exam: Present: normal appearance, PERRL ENT exam: Present: normal exam Neck exam: Present: normal inspection. Absent: tenderness, meningismus Respiratory exam: Present: normal lung sounds bilaterally. Absent: respiratory distress, wheezes Cardiovascular Exam: Present: regular rate, normal rhythm GI/Abdominal exam: Present: soft. Absent: distended, tenderness, guarding Extremities exam: Present: normal inspection Neurological exam: Present: alert, oriented X3, CN II-XII intact. Absent: motor sensory deficit Psychiatric exam: Present: depressed, anxious, suicidal ideation Skin exam: Present: warm, dry, intact. Absent: cyanosis, diaphoretic <Darren Chamorro - Last Filed: 06/08/21 19:48> Course <Darren Chamorro - Last Filed: 06/08/21 19:48> Vital Signs 06/08/21 19:05 Temperature 98.6 F Pulse Rate 117 H Respiratory 20 Rate Blood Pressure 136/80 O2 Sat by Pulse 97 Oximetry - Reevaluation(s) Reevaluation #1: 06/08/21 2100 Patient care signed out to Dr. Chaudhari Awaiting EPS evaluation. (Raul Chamorro) Medical Decision Making <Gato Chaudhari - Last Filed: 06/10/21 01:30> - Medical Decision Making 60 female who was seen and evaluated psychiatry here in the ER patient was outpatient evaluation tomorrow for possible inpatient placement admit to a facility to also help with possible detoxification (Gato Chaudhari) - Lab Data Lab Results 06/08/21 Range/Units 20:04 Urine Opiates Screen Not Detected (NotDetected) Ur Oxycodone Screen Not Detected (NotDetected) Urine Methadone Screen Not Detected (NotDetected) Ur Propoxyphene Screen Not Detected (NotDetected) Ur Barbiturates Screen Detected H (NotDetected) U Tricyclic Antidepress Not Detected (NotDetected) Ur Phencyclidine Scrn Not Detected (NotDetected) Ur Amphetamines Screen Not Detected (NotDetected) U Methamphetamines Scrn Not Detected (NotDetected) U Benzodiazepines Scrn Not Detected (NotDetected) Urine Cocaine Screen Not Detected (NotDetected) U Marijuana (THC) Screen Not Detected (NotDetected) Disposition <Darren Chamorro N - Last Filed: 06/08/21 19:48> Is patient prescribed a controlled substance at d/c from ED?: No <Gato Chaudhari - Last Filed: 06/10/21 01:30> Clinical Impression: Depression Disposition: HOME SELF-CARE Condition: Good Instructions (If sedation given, give patient instructions): Depression (ED) Referrals: Joss Archer MD [Primary Care Provider] - 1-2 days
[2021-06-08 20:23] LABS: Amphetamine Screen,Urine Not Detected (NotDetected); Barbiturate Screen,Urine Detected (NotDetected); Benzodiazepines Screen,Urine Not Detected (NotDetected); Cocaine Screen,Urine Not Detected (NotDetected); Methadone Screen, Urine Not Detected (NotDetected); Opiate Screen,Urine Not Detected (NotDetected); Oxycodone Screen, Urine Not Detected (NotDetected); Phencyclidine Screen,Urine Not Detected (NotDetected); Tricyclic Antidepressant,Urine Not Detected (NotDetected); Urn Cannabinoid Scrn Not Detected (NotDetected)
== END 2021-06-08 23:11 | disposition home or self-care (01) ==
LOC: EC 18:13
DX: F32.9 Major depressive disorder, single episode, unspecified (principal); J45.909 Unspecified asthma, uncomplicated; K21.9 Gastro-esophageal reflux disease without esophagitis; E78.5 Hyperlipidemia, unspecified; I10 Essential (primary) hypertension; E07.9 Disorder of thyroid, unspecified; F41.9 Anxiety disorder, unspecified; Z86.73 Personal history of transient ischemic attack (TIA), and cerebral infarction without residual deficits; Z87.11 Personal history of peptic ulcer disease; Z90.89 Acquired absence of other organs; Z98.51 Tubal ligation status
CPT/HCPCS: 80306; 82075; 99284

== ENCOUNTER → 2021-10-16 | Outpatient (CLI) | payer OTHER ==
[2021-10-16 17:15] LABS: Basophils # (A) 0.1 k/uL (0-0.2); Basophils % (A) 1 %; Eosinophils # (A) 0.1 k/uL (0-0.7); Eosinophils % (A) 1 %; HCT 38.4 % (34.0-46.0); HGB 12.9 gm/dL (11.4-16.0); Lymphocytes # (A) 1.4 k/uL (1.0-4.8); Lymphocytes % (A) 19 %; MCH 32.3 pg (25.0-35.0); MCHC 33.6 g/dL (31.0-37.0); Mean Platelet Volume 7.7; Monocytes # (A) 0.3 k/uL (0-1.0); Monocytes % (A) 4 %; Neutrophils # (A) 5.5 k/uL (1.3-7.7); Neutrophils % (A) 74 %; Platelet Count 220 k/uL (150-450); RDW 12.8 % (11.5-15.5); WBC 7.4 k/uL (3.8-10.6)
[2021-10-16 17:26] LABS: African American GFR (CKD) 89 (>60 ml/min/1.73 sqM); Anion Gap 5 mmol/L; Blood Urea Nitrogen 16 mg/dL (7-17); Calcium 8.8 mg/dL (8.4-10.2); Carbon Dioxide 28 mmol/L (22-30); Chloride 104 mmol/L (98-107); Glucose 100 mg/dL (74-99); Non-African American GFR(CKD) 78 (>60 ml/min/1.73 sqM); Partial Thromboplastin Time 27.6 sec (22.0-30.0); Potassium 3.9 mmol/L (3.5-5.1); Prothrombin Time 10.7 sec (9.0-12.0); Sodium 137 mmol/L (137-145)
--- NOTE | 2021-10-16 17:33 | CT ---
EXAMINATION TYPE: CT angio chest CT DLP: 469 mGycm, Automated exposure control for dose reduction was used. DATE OF EXAM: 10/16/2021 5:12 PM COMPARISON: None CLINICAL INDICATION:Female, 61 years old with history of R07.9,I82.462; h/o blood clots TECHNIQUE/CONTRAST: CTA scan of the thorax is performed with IV Contrast, patient injected with 80 mL of Isovue 300, pulm onary embolism protocol. MIP images are created and reviewed. FINDINGS: Pulmonary Artery: There is no evidence for a filling defect within the pulmonary vasculature to sugge st acute pulmonary embolism. The pulmonary artery is of normal size. Lungs/Pleura: No evidence of focal consolidation, pleural effusion or pneumothorax. Peripheral and de pendent subsegmental atelectasis. Lingular streaky atelectasis/scarring is present. Airway: Large airways are patent. Heart: Within normal limits for size.. Vasculature: No evidence of aortic aneurysm. Mediastinum: No gross evidence of adenopathy. Musculoskeletal: No acute osseous abnormalities, mild multilevel disc degeneration changes. Soft Tissues: Unremarkable. Lower neck: No significant findings. Upper Abdomen: Similar area of decreased attenuation within the left hepatic lobe measuring 42 x 40 m m which may be mildly increased in size from 2012 where it measured 41 x 31 mm. IMPRESSION: 1. No evidence of pulmonary embolism. 2. Left hepatic lobe lesion seen dating back to 2011, this may be minimally larger on today's exam. This can be further characterized with MRI or CT liver mass protocol with IV contrast if clinically w arranted.
== END | disposition home or self-care (01) ==
LOC: RADCTMAIN 16:27
PROVIDERS: ATTEND Family Medicine
DX: K76.89 Other specified diseases of liver (principal); I82.462 Acute embolism and thrombosis of left calf muscular vein; R07.9 Chest pain, unspecified
CPT/HCPCS: 80048; 85025; 85610; 85730; 71275; 36415; Q9967

== ENCOUNTER → 2021-10-16 | Outpatient (CLI) | payer OTHER ==
--- NOTE | 2021-10-16 14:19 | US ---
"EXAMINATION TYPE: US venous doppler duplex LE RT DATE OF EXAM: 10/16/2021 2:09 PM COMPARISON: NONE CLINICAL HISTORY: M79.661 pain R leg M25.561 pain R knee. SIDE PERFORMED: TECHNIQUE: The lower extremity deep venous system is examined utilizing real time linear array sonog christiane with graded compression, doppler sonography and color-flow sonography. VESSELS IMAGED: Common Femoral Vein Deep Femoral Vein Greater Saphenous Vein * Femoral Vein Popliteal Vein Small Saphenous Vein * Proximal Calf Veins (* superficial vessels) Right Leg: Is positive for non occluding DVT in distal Right Popliteal Vein and in one of 2 upper ca lf veins. See additional US extremity study today for Right popliteal fossa cyst. Grayscale, color doppler, spectral doppler imaging performed of the deep veins of the right lower ext remity. Satisfactory blood flow and compressibility proximal aspect. Popliteal vein shows hyper cardi ac material expanding the lumen with diminished color flow. This extends into one of the calf veins b elow the knee. IMPRESSION: Acute partial occlusive DVT in the popliteal vein extending towards the right ankle is c onfirmed. A Yellow level critical message alert has been initiated for Joss Archer MD via the [employer] | Critical Results System on 10/16/2021 2:17 PM. This message alert has been sent to Joss ayoub MD via the preferences provided by the clinician for the receipt of Radiology Critical Findings. Fidencio essage ID [id number]."
--- NOTE | 2021-10-16 15:39 | US ---
EXAMINATION TYPE: US extremity nonvasculr ltd RT DATE OF EXAM: 10/16/2021 COMPARISON: NONE CLINICAL HISTORY: M79.661 pain R leg M25.561 pain R knee. Palpable right popliteal fossa. US findings at Right Popliteal Fossa: complex, cystic oval lesion is seen = 5.7 x 3.8 x 1.5cm. IMPRESSION: Moderate-sized popliteal cyst felt present as detailed above.
== END | disposition home or self-care (01) ==
LOC: RADUSWWP 13:40
PROVIDERS: ATTEND Family Medicine
DX: I82.431 Acute embolism and thrombosis of right popliteal vein (principal); M71.21 Synovial cyst of popliteal space [Baker], right knee

== ENCOUNTER → 2021-12-19 | Outpatient (CLI) | payer OTHER ==
--- NOTE | 2021-12-19 14:25 | US ---
EXAMINATION TYPE: US venous doppler duplex LE RT DATE OF EXAM: 12/19/2021 1:58 PM COMPARISON: CLINICAL HISTORY: Z86.718 PERSONAL HISTORY OF OTHER VENOUS THROMBOSI,M79.604. Hx DVT right leg. Pain . Hx bakers cysts. On blood thinners. SIDE PERFORMED: Right TECHNIQUE: The lower extremity deep venous system is examined utilizing real time linear array sonog christiane with graded compression, doppler sonography and color-flow sonography. VESSELS IMAGED: Common Femoral Vein Deep Femoral Vein Greater Saphenous Vein * Femoral Vein Popliteal Vein Small Saphenous Vein * Proximal Calf Veins (* superficial vessels) Right Leg: Negative for DVT. Posterior knee complex fluid collection = 4.7 x 2.7 x 1.6 cm. IMPRESSION: 1. Right lower extremity ultrasound negative for deep venous thrombosis. 2. Right popliteal cyst.
== END | disposition home or self-care (01) ==
LOC: RADUSWWP 13:28
PROVIDERS: ATTEND Family Medicine
DX: M71.21 Synovial cyst of popliteal space [Baker], right knee (principal); Z79.01 Long term (current) use of anticoagulants; Z86.718 Personal history of other venous thrombosis and embolism

== ENCOUNTER 2022-03-04 12:32 | Emergency (ER) | payer OTHER ==
--- NOTE | 2022-03-04 13:19 | ED ---
URI HPI - General Chief Complaint: Upper Respiratory Infection Stated Complaint: COVID exposure/sx Time Seen by Provider: 03/04/22 12:37 Source: patient, RN notes reviewed Mode of arrival: ambulatory Limitations: no limitations - History of Present Illness Initial Comments: 61-year-old female presents emergency dept chief complaint of possible COVID-19. Patient states that she's had symptoms last few days. Patient states she was recently exposed. She is increasing headache, body aches, fever or chills cough congestion. No chest pain no nausea vomiting diarrhea constipation no other associated symptoms. - Related Data Home Medications Medication Instructions Recorded Confirmed Atorvastatin [Lipitor] 20 mg PO HS 04/23/18 05/09/21 Butalb/APAP/Caff 50-325-40Mg 1 tab PO TID PRN 04/23/18 05/09/21 [Fioricet 50-325-40] Montelukast [Singulair] 10 mg PO HS 04/23/18 05/09/21 Zonisamide [Zonegran] 100 mg PO DAILY 04/23/18 05/09/21 Albuterol Sulfate [Albuterol 2 puff INHALATION RT-Q4H PRN 12/25/18 05/09/21 Sulfate Hfa] Baclofen [Lioresal] 10 mg PO TID 01/31/20 05/09/21 DULoxetine HCL [Cymbalta] 30 mg PO HS 01/31/20 05/09/21 Famotidine [Pepcid] 20 mg PO DAILY 01/31/20 05/09/21 Levothyroxine Sodium [Synthroid] 50 mcg PO DAILY 01/31/20 05/09/21 DULoxetine HCL [Cymbalta] 60 mg PO DAILY 09/20/20 05/09/21 Fexofenadine HCl [Ashli Allergy] 180 mg PO DAILY PRN 09/20/20 05/09/21 Fluticasone Nasal [place] [Flonase 1 spray EA NOSTRIL BID PRN 09/20/20 05/09/21 Nasal [place]] Verapamil Sr [Isoptin Sr] 120 mg PO TID 09/20/20 05/09/21 Beclomethasone Dipropionate [Qvar 2 puff PO BID 03/26/21 05/09/21 80mcg Redihaler] Meclizine [Antivert] 12.5 mg PO BID PRN 03/26/21 05/09/21 Omeprazole [PriLOSEC] 20 mg PO AC-BID 03/26/21 05/09/21 Previous Rx's Medication Instructions Recorded dexAMETHasone [Decadron] 6 mg PO DAILY #5 tablet 03/04/22 Allergies Allergy/AdvReac Type Severity Reaction Status Date / Time No Known Allergies Allergy Verified 03/04/22 12:44 Review of Systems ROS Statement: Those systems with pertinent positive or pertinent negative responses have been documented in the HPI. ROS Other: All systems not noted in ROS Statement are negative. Past Medical History Past Medical History: Asthma, CVA/TIA, GERD/Reflux, Hyperlipidemia, Hypertension, Pneumonia, Thyroid Disorder Additional Past Medical History / Comment(s): HEADACHES, CHRONIC BACK AND NECK PAIN, STATES "THICKENING OF THE HEART", OCCASIONAL SWELLING LEFT LEG, STATES TIA FEBRUARY 2018 AND HAS WEAKNESS & DIZZINESS & CONFUSION SINCE TIA ., USING WALKER., STOMACH ULCER, HIATAL HERNIA. , HX OF KIDNEY INFECTIONS., LARYNGEAL PALSY DURING CERVICAL SURGERY & DYSPHAGIA (FROM [facility]) DIFFICULTY SWALLOWING AT TIMES, MALACIA. tracheomalacia Pt. had Violeta Manzano, vitamin d defficiancy, anemia History of Any Multi-Drug Resistant Organisms: None Reported Past Surgical History: Tonsillectomy, Tubal Ligation Additional Past Surgical History / Comment(s): EGD, CERVICAL FUSION (09/2018). COLONOSCOPY. bronchoscopy Past Anesthesia/Blood Transfusion Reactions: No Reported Reaction Additional Past Anesthesia/Blood Transfusion Reaction / Comment(s): pt states layngeal palsy with difficulty swallowing after cervical surgery. maternal aunt and grandma difficulty waking after anesthesia Past Psychological History: Anxiety, Depression Smoking Status: Never smoker Past Alcohol Use History: None Reported Past Drug Use History: None Reported - Past Family History Father Family Medical History: Unable to Obtain Additional Family Medical History / Comment(s): schizoprenia Mother Family Medical History: COPD, CVA/TIA General Exam Limitations: no limitations General appearance: alert, in no apparent distress Head exam: Present: atraumatic, normocephalic, normal inspection Eye exam: Present: normal appearance, PERRL, EOMI. Absent: scleral icterus, conjunctival injection, periorbital swelling ENT exam: Present: normal exam, normal oropharynx, mucous membranes moist Neck exam: Present: normal inspection, full ROM. Absent: tenderness, meningismus, lymphadenopathy Respiratory exam: Present: normal lung sounds bilaterally. Absent: respiratory distress, wheezes, rales, rhonchi, stridor Cardiovascular Exam: Present: regular rate, normal rhythm, normal heart sounds. Absent: systolic murmur, diastolic murmur, rubs, gallop, clicks GI/Abdominal exam: Present: soft, normal bowel sounds. Absent: distended, tenderness, guarding, rebound, rigid Course Vital Signs 03/04/22 03/04/22 12:40 12:56 Temperature 99.6 F 99.1 F Pulse Rate 97 92 Respiratory 18 13 Rate Blood Pressure 76/53 115/54 O2 Sat by Pulse 93 L 94 L Oximetry Medical Decision Making - Medical Decision Making 61-year-old female present for complications. Patient's chest x-rays unremarkable. Patient's COVID-19 positive. Patient vitals are within normal limits. Patient will be discharged in stable condition return parameters were discussed. - Lab Data Lab Results 03/04/22 Range/Units 13:02 Coronavirus (PCR) Detected A (Not Detectd) Disposition Clinical Impression: COVID-19 Disposition: HOME SELF-CARE Condition: Stable Instructions (If sedation given, give patient instructions): COVID-19 (Coronavirus Disease 2019) (ED) Additional Instructions: Please return to the Emergency Department if symptoms worsen or any other concerns. Prescriptions: dexAMETHasone [Decadron] 6 mg PO DAILY #5 tablet Is patient prescribed a controlled substance at d/c from ED?: No Referrals: Joss Archer MD [Primary Care Provider] - 1-2 days Time of Disposition: 13:30
--- NOTE | 2022-03-04 13:24 | XR ---
EXAMINATION TYPE: XR chest 2V DATE OF EXAM: 03/04/2022 COMPARISON: 08/16/2019 TECHNIQUE: PA and lateral views submitted. HISTORY: Cough FINDINGS: The lungs are clear and there is no pneumothorax, pleural effusion, or focal pneumonia. Heart size normal. No overt failure. Postsurgical change overlying cervical spine. Hyperinflation suggests COPD. IMPRESSION: 1. No acute process.
[2022-03-04 14:20] VITALS: BP 126/76; PULSE 89; RESP 18; TEMP 98
== END 2022-03-04 14:20 | disposition home or self-care (01) ==
LOC: EC 12:32
DX: U07.1 COVID-19 (principal); J45.909 Unspecified asthma, uncomplicated; K21.9 Gastro-esophageal reflux disease without esophagitis; E78.5 Hyperlipidemia, unspecified; I10 Essential (primary) hypertension; E07.9 Disorder of thyroid, unspecified; Z86.73 Personal history of transient ischemic attack (TIA), and cerebral infarction without residual deficits; F41.9 Anxiety disorder, unspecified; F32.A Depression, unspecified; Z79.51 Long term (current) use of inhaled steroids; Z79.899 Other long term (current) drug therapy
CPT/HCPCS: 71046; 87635; 99284

== ENCOUNTER 2022-12-18 12:03 | Day surgery (SDC) | payer OTHER ==
[2022-12-16 15:32] VITALS: BMI 32.2
[~2022-12-18 12:03] MED LIST changes: -ALBUTEROL NEB (CONC) 2.5 MG/0.5 ML INHALATION ONE; -DEXAMETHASONE SOD PHOSPHATE 4 MG/ML 1 ML VIAL IV ONE; -HYDROmorphone 0.5 MG/0.5 ML SYRINGE IVP PRN; -LIDOCAINE 2% (PF) 20 MG/ML 5 ML VIAL INHALATION ONE; -LIDOCAINE VISCOUS 300 MG/15 ML CUP MUCOUS MEM ONE; -ONDANSETRON 4 MG/2 ML VIAL IVP ONE
[2022-12-18] MEDS ORDERED: LACTATED RINGERS 1,000 ML IV ONE ×2 (12:20→12:25)
[2022-12-18 12:37] VITALS: TEMP 97.9
[2022-12-18 12:47] LABS: Glucose,Whole Blood 110 mg/dL (70-110)
[2022-12-18] MEDS ORDERED: MIDAZOLAM 2 MG/2 ML VIAL ONE (13:41)
[2022-12-18] MEDS ORDERED: KETAMINE 10 MG/ML 20 ML VIAL ONE (13:41)
[2022-12-18] MEDS ORDERED: PROPOFOL 10 MG/ML 20 ML VIAL IV ONE (13:41)
[2022-12-18] MEDS ORDERED: fentaNYL (PF) 50 MCG/ML 2 ML AMP ONE (13:41)
[2022-12-18] MEDS ORDERED: GLYCOPYRROLATE 0.2 MG/ML 2 ML VIAL ONE (13:41)
[2022-12-18] MEDS ORDERED: LIDOCAINE 2% INJ 20 MG/ML (2 ML VIAL) ONE (13:41)
[2022-12-18] MEDS ORDERED: LIDOCAINE 2% INJ 20 MG/ML INTRATRACH ONE (14:02)
[2022-12-18 14:09] VITALS: RESP 14
[2022-12-18 14:28] VITALS: BP 128/75; PULSE 104
--- NOTE | 2022-12-18 16:08 | PCN ---
PROCEDURE NOTE This is a Pulmonary/Critical Care procedure note. PROCEDURES PERFORMED: Bronchoscopy, airway examination, therapeutic lavage, and bronchoalveolar lavage. PREOPERATIVE DIAGNOSIS: Asthma/stridor. POSTOPERATIVE DIAGNOSIS: Asthma/stridor. There were informed consent and universal time-out. DRIER BELT CONVEYOR: Dr. Maldonado. ANESTHESIA PROVIDED: General anesthesia. LOCATION: The patient's procedure was done in the endoscopy room #1 [facility]. DESCRIPTION OF PROCEDURE: After the patient was adequately sedated and being fully monitored, the bronchoscope was inserted through the right nostril. It passed through the right nasopharynx into the oropharynx. The hypopharynx was identified and topicalized. The hypopharyngeal structures all appeared normal including anterior commissure, true cords, false cords, arytenoids, piriform sinuses, right and left valleculae, and epiglottis. After topicalization of the glottic opening, the bronchoscope was pushed through the glottic opening into the trachea. There were minimal secretions in the trachea. The trachea appeared normal. There was no subglottic stenosis or lesion. The tracheal jazmín was sharp. The right and left mainstem were topicalized. The right upper lobe and its 3 segments, right middle lobe and its 2 segments, right lower lobe and its 5 segments, left upper lobe proper and its 2 segments, lingula and its 2 segments, and left lower lobe and its 4 segments all had similar findings of diffuse mild bronchitis. There were minimal secretions. There was no dominant mass or tumor. There was minimal mucosal friability. The bronchoscope was wedged into the right middle lobe. We did a formal BAL. 30 mL of fluid was recovered. It will be sent to the laboratory for analysis including microbiology and cytology. The patient tolerated the procedure well. The bronchoscope was withdrawn. There was no immediate complication. The patient will be recovered. The patient tolerated the procedure very well. MMODL / IJN: [id number] /
[2022-12-19 04:28] LABS: Appearance,BF Hazy
== END 2022-12-18 14:56 | disposition home or self-care (01) ==
LOC: ORWHC2ENDO 12:03
PROVIDERS: ATTEND Internal Medicine Critical Care Medicine
DX: J98.4 Other disorders of lung (principal); J45.909 Unspecified asthma, uncomplicated; J39.8 Other specified diseases of upper respiratory tract; I25.2 Old myocardial infarction; I10 Essential (primary) hypertension; E78.5 Hyperlipidemia, unspecified; I47.1 Supraventricular tachycardia; E07.9 Disorder of thyroid, unspecified; Z86.73 Personal history of transient ischemic attack (TIA), and cerebral infarction without residual deficits; G43.909 Migraine, unspecified, not intractable, without status migrainosus; Z79.01 Long term (current) use of anticoagulants; Z79.51 Long term (current) use of inhaled steroids; Z79.899 Other long term (current) drug therapy; J38.00 Paralysis of vocal cords and larynx, unspecified
CPT/HCPCS: 88108; 88305; 89050; 87252; 87070; 87205; 87116; 87102; 87206; 31624; J2001 ×2; J2250; J3010; J2704

== ENCOUNTER 2023-05-29 01:59 | Inpatient (IN) | payer OTHER ==
--- NOTE | 2023-05-29 02:09 | ED ---
General Adult HPI - General Chief complaint: Fall Stated complaint: Fall,Syncope Time Seen by Provider: 05/29/23 02:02 Source: patient, EMS Mode of arrival: EMS Limitations: no limitations - History of Present Illness Initial comments: Dictation was produced using [employer] dictation software. please excuse any grammatical, word or spelling errors. Chief Complaint: 62-year-old female multiple comorbidities presents to emergency department after syncopal episode History of Present Illness: Patient is a 62-year-old female she has past medical history cardiac disease. States she has a history of KS. She will up in the middle the night to make herself HE sandwich she was hungry. She got to the kitchen made to sandwich. Next thing she remembers is she that she is on the ground. Apparently her family member heard her fall and came to check on her periods unclear how long patient was unconscious for. Patient complains of some mild dizziness. Otherwise no other complaints. Patient has no pain complaints. Patient takes adequate ventilation medications for history of lower extremity DVT. The ROS documented in this emergency department record has been reviewed and confirmed by me. Those systems with pertinent positive or negative responses have been documented in the HPI. All other systems are other negative and/or noncontributory. - Related Data Home Medications Medication Instructions Recorded Confirmed Atorvastatin [Lipitor] 20 mg PO HS 04/23/18 12/18/22 Butalb/APAP/Caff 50-325-40Mg 1 tab PO TID PRN 04/23/18 12/18/22 [Fioricet 50-325-40] Montelukast [Singulair] 10 mg PO HS 04/23/18 12/18/22 Albuterol Sulfate [Albuterol 2 puff INHALATION RT-Q4H PRN 12/25/18 12/18/22 Sulfate Hfa] Baclofen [Lioresal] 10 mg PO TID 01/31/20 12/18/22 Famotidine [Pepcid] 20 mg PO QAM 01/31/20 12/18/22 Levothyroxine Sodium [Synthroid] 50 mcg PO QAM 01/31/20 12/18/22 DULoxetine HCL [Cymbalta] 60 mg PO DAILY 09/20/20 12/18/22 Beclomethasone Dipropionate [Qvar 2 puff PO BID 03/26/21 12/18/22 80mcg Redaler] Omeprazole [PriLOSEC] 20 mg PO AC-BID 03/26/21 12/18/22 Apixaban [Eliquis] 5 mg PO BID 12/16/22 12/18/22 clonazePAM [KlonoPIN] 0.5 mg PO BID PRN 12/16/22 12/18/22 Allergies Allergy/AdvReac Type Severity Reaction Status Date / Time No Known Allergies Allergy Verified 12/18/22 12:28 Review of Systems ROS Statement: Those systems with pertinent positive or pertinent negative responses have been documented in the HPI. ROS Other: All systems not noted in ROS Statement are negative. Past Medical History Past Medical History: Asthma, CVA/TIA, GERD/Reflux, Hyperlipidemia, Hypertension, Pneumonia, Thyroid Disorder Additional Past Medical History / Comment(s): freq stridor,tracheal malacia, steroid injection November 2022,HEADACHES, CHRONIC BACK AND NECK PAIN, STATES "THICKENING OF THE HEART", OCCASIONAL SWELLING LEFT LEG, STATES TIA FEBRUARY 2018 AND HAS WEAKNESS & DIZZINESS & CONFUSION SINCE TIA ., USING WALKER prn ., STOMACH ULCER, HIATAL HERNIA. 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 COLONOSCOPY. bronchoscopy Past Anesthesia/Blood Transfusion Reactions: No Reported Reaction Additional Past Anesthesia/Blood Transfusion Reaction / Comment(s): pt states layngeal palsy with difficulty swallowing after cervical surgery. maternal aunt and grandma difficulty waking after anesthesia Past Psychological History: Anxiety, Depression Smoking Status: Never smoker Past Alcohol Use History: None Reported Past Drug Use History: None Reported - Past Family History Father Family Medical History: Unable to Obtain Additional Family Medical History / Comment(s): schizoprenia Mother Family Medical History: COPD, CVA/TIA General Exam - General Exam Comments Initial Comments: PHYSICAL EXAM: General Impression: Alert and oriented x3, not in acute distress HEENT: Normocephalic atraumatic, extra-ocular movements intact, pupils equal and reactive to light bilaterally, mucous membranes moist. Cardiovascular: Heart regular rate and rhythm Chest: Able to complete full sentences, no retractions, no tachypnea Abdomen: abdomen soft, non-tender, non-distended, no organomegaly Musculoskeletal: Pulses present and equal in all extremities, no peripheral edema Motor: no focal deficits noted Neurological: CN II-XII grossly intact, no focal motor or sensory deficits noted Skin: Intact with no visualized rashes Psych: Normal affect and mood Limitations: no limitations Course Vital Signs 05/29/23 05/29/23 02:01 03:00 Temperature 97.6 F Pulse Rate 82 89 Respiratory 16 16 Rate Blood Pressure 140/72 132/87 O2 Sat by Pulse 96 97 Oximetry Medical Decision Making - Medical Decision Making Was pt. sent in by a medical professional or institution (, PA, [employer] INSTRUCTOR, urgent care, hospital, or fci...) When possible be specific @ -No Did you speak to anyone other than the patient for history (EMS, parent, family, police, friend...)? What history was obtained from this source @ -No Did you review nursing and triage notes (agree or disagree)? Why? @ -I reviewed and agree with nursing and triage notes Were old charts reviewed (outside hosp., previous admission, EMS record, old EKG, old radiological studies, urgent care reports/EKG's, fci records)? Report findings @ -No old charts were reviewed Differential Diagnosis (chest pain, altered mental status, abdominal pain women, abdominal pain men, vaginal bleeding, musculoskeletal, weakness, fever, dyspnea, syncope, headache, dizziness, GI bleed, back pain, seizure, CVA, palpatations, mental health)? @ -Differential Syncope: Valvular disease, hypertrophic cardiomyopathy, pulmonary embolism, tamponade, t achycardia, bradycardia, KS, hypovolemia, hemorrhage, dissection, anemia, intracranial hemorrhage, seizure, hypoglycemia, carbon monoxide poisoning, this is not meant to be an all-inclusive list. EKG interpreted by me (3pts min.). @ -My EKG interpretation: Ventricular rate 88, sinus rhythm,. Interval 170, QRS 25, QTc 431. No AZ prolongation, no QTC prolongation, no ST or T-wave changes noted. Overall, this EKG is unremarkable X-rays interpreted by me (1pt min.). @ -Chest x-ray shows no acute processes CT interpreted by me (1pt min.). @ -None done U/S interpreted by me (1pt. min.). @ -None done What testing was considered but not performed or refused? (CT, X-rays, U/S, labs)? Why? @ -None What meds were considered but not given or refused? Why? @ -None Did you discuss the management of the patient with other professionals (professionals i.e. Dr., PA, [employer] INSTRUCTOR, lab, RT, psych nurse, social media editor, seed sales manager, teacher, combat systems officer, case filler)? Give summary @ -Discussed with hospitalist for admission Was smoking cessation discussed for >3mins.? @ -No Was critical care preformed (if so, how long)? @ -No Were there social determinants of health that impacted care today? How? (Homelessness, low income, unemployed, alcoholism, drug addiction, transportation, low edu. Level, literacy, decrease access to med. care, senior living, rehab)? @ -No Was there de-escalation of care discussed even if they declined (Discuss DNR or withdrawal of care, Hospice)? DNR status @ -No What co-morbidities impacted this encounter? (DM, HTN, Smoking, COPD, CAD, Cancer, CVA, ARF, Chemo, Hep., AIDS, mental health diagnosis, sleep apnea, morbid obesity)? @ -None Was patient admitted / discharged? Hospital course, mention meds given and route, prescriptions, significant lab abnormalities, going to OR and other pertinent info. @ -62-year-old female presents emergency department after syncopal episode she has reported cardiac history. Vital signs stable. EKG is unremarkable. Laboratory evaluation is unremarkable. Troponins negative. Given patient's age comorbidities and concern for cardiac cause of syncope patient be admitted with cardiology consultation and cardiac monitoring. Undiagnosed new problem with uncertain prognosis? @ -No Drug Therapy requiring intensive monitoring for toxicity (Heparin, Nitro, Insulin, Cardizem)? @ -No Were any procedures done? @ -No Diagnosis/symptom? Acute, or Chronic, or Acute on Chronic? Uncomplicated (without systemic symptoms) or Complicated (systemic symptoms)? @ -Syncope Side effects of treatment? @ -No Exacerbation, Progression, or Severe Exacerbation? @ -No Poses a threat to life or bodily function? How? (Chest pain, USA, KS, pneumonia, PE, COPD, DKA, ARF, appy, cholecystitis, CVA, Diverticulitis, Homicidal, Suicidal, threat to staff... and all critical care pts) @ -yes - Lab Data Result diagrams: 05/29/23 02:31 05/29/23 02:31 Lab Results 05/29/23 05/29/23 05/29/23 Range/Units 02:30 02:31 02:31 WBC 4.6 (3.8-10.6) k/uL RBC 3.80 (3.80-5.40) m/uL Hgb 12.1 (11.4-16.0) gm/dL Hct 36.4 (34.0-46.0) % MCV 95.8 (80.0-100.0) fL MCH 31.8 (25.0-35.0) pg MCHC 33.2 (31.0-37.0) g/dL RDW 13.3 (11.5-15.5) % Plt Count 160 (150-450) k/uL MPV 8.8 Neutrophils % 59 % Lymphocytes % 31 % Monocytes % 6 % Eosinophils % 2 % Basophils % 0 % Neutrophils # 2.7 (1.3-7.7) k/uL Lymphocytes # 1.4 (1.0-4.8) k/uL Monocytes # 0.3 (0-1.0) k/uL Eosinophils # 0.1 (0-0.7) k/uL Basophils # 0.0 (0-0.2) k/uL PT 11.7 (10.0-12.5) sec INR 1.1 (<1.2) APTT 26.7 (22.0-30.0) sec Sodium (137-145) mmol/L Potassium (3.5-5.1) mmol/L Chloride (98-107) mmol/L Carbon Dioxide (22-30) mmol/L Anion Gap mmol/L BUN (7-17) mg/dL Creatinine (0.52-1.04) mg/dL Est GFR (CKD-EPI)AfAm (>60 ml/min/1.73 sqM) Est GFR (CKD-EPI)NonAf (>60 ml/min/1.73 sqM) Glucose (74-99) mg/dL Calcium (8.4-10.2) mg/dL Magnesium (1.6-2.3) mg/dL Total Bilirubin (0.2-1.3) mg/dL AST (14-36) U/L ALT (4-34) U/L Alkaline Phosphatase (38-126) U/L Troponin I (0.000-0.034) ng/mL Total Protein (6.3-8.2) g/dL Albumin (3.5-5.0) g/dL Blood Type O Positive Blood Type Confirm Blood Type Recheck No Previous Record Bld Type Recheck Status CABO Indicated Antibody Screen NEGATIVE Spec Expiration Date 06/01/2023232905/29/23 05/29/23 05/29/23 Range/Units 02:31 02:31 03:59 WBC (3.8-10.6) k/uL RBC (3.80-5.40) m/uL Hgb (11.4-16.0) gm/dL Hct (34.0-46.0) % MCV (80.0-100.0) fL MCH (25.0-35.0) pg MCHC (31.0-37.0) g/dL RDW (11.5-15.5) % Plt Count (150-450) k/uL MPV Neutrophils % % Lymphocytes % % Monocytes % % Eosinophils % % Basophils % % Neutrophils # (1.3-7.7) k/uL Lymphocytes # (1.0-4.8) k/uL Monocytes # (0-1.0) k/uL Eosinophils # (0-0.7) k/uL Basophils # (0-0.2) k/uL PT (10.0-12.5) sec INR (<1.2) APTT (22.0-30.0) sec Sodium 137 (137-145) mmol/L Potassium 4.0 (3.5-5.1) mmol/L Chloride 107 (98-107) mmol/L Carbon Dioxide 23 (22-30) mmol/L Anion Gap 7 mmol/L BUN 12 (7-17) mg/dL Creatinine 0.75 (0.52-1.04) mg/dL Est GFR (CKD-EPI)AfAm >90 (>60 ml/min/1.73 sqM) Est GFR (CKD-EPI)NonAf 86 (>60 ml/min/1.73 sqM) Glucose 92 (74-99) mg/dL Calcium 8.3 L (8.4-10.2) mg/dL Magnesium 1.9 (1.6-2.3) mg/dL Total Bilirubin 0.4 (0.2-1.3) mg/dL AST 21 (14-36) U/L ALT 19 (4-34) U/L Alkaline Phosphatase 89 (38-126) U/L Troponin I <0.012 (0.000-0.034) ng/mL Total Protein 5.6 L (6.3-8.2) g/dL Albumin 3.4 L (3.5-5.0) g/dL Blood Type Blood Type Confirm O Positive Blood Type Recheck Bld Type Recheck Status Antibody Screen Spec Expiration Date Disposition Clinical Impression: Syncope Disposition: ADMITTED IP TO THIS [facility] Condition: Fair Referrals: Joss Archer MD [Primary Care Provider] - 1-2 days Decision Time: 05:24
[2023-05-29] MEDS ORDERED: MORPHINE SULFATE 4 MG/ML SYRINGE IV STA (03:02)
[2023-05-29 03:25] LABS: Basophils % (A) 0 %; Eosinophils # (A) 0.1 k/uL (0-0.7); Eosinophils % (A) 2 %; HCT 36.4 % (34.0-46.0); HGB 12.1 gm/dL (11.4-16.0); Lymphocytes # (A) 1.4 k/uL (1.0-4.8); Lymphocytes % (A) 31 %; MCH 31.8 pg (25.0-35.0); MCHC 33.2 g/dL (31.0-37.0); MCV 95.8 fL (80.0-100.0); Mean Platelet Volume 8.8; Monocytes # (A) 0.3 k/uL (0-1.0); Monocytes % (A) 6 %; Neutrophils # (A) 2.7 k/uL (1.3-7.7); Neutrophils % (A) 59 %; Platelet Count 160 k/uL (150-450); RDW 13.3 % (11.5-15.5); WBC 4.6 k/uL (3.8-10.6)
[2023-05-29 03:32] LABS: INR 1.1 (<1.2); Partial Thromboplastin Time 26.7 sec (22.0-30.0); Prothrombin Time 11.7 sec (10.0-12.5)
[2023-05-29 03:42] LABS: ALT 19 U/L (4-34); AST 21 U/L (14-36); African American GFR (CKD) >90 (>60 ml/min/1.73 sqM); Albumin 3.4 g/dL (3.5-5.0); Alkaline Phosphatase 89 U/L (38-126); Anion Gap 7 mmol/L; Blood Urea Nitrogen 12 mg/dL (7-17); Calcium 8.3 mg/dL (8.4-10.2); Carbon Dioxide 23 mmol/L (22-30); Chloride 107 mmol/L (98-107); Glucose 92 mg/dL (74-99); Magnesium 1.9 mg/dL (1.6-2.3); Non-African American GFR(CKD) 86 (>60 ml/min/1.73 sqM); Sodium 137 mmol/L (137-145); Total Bilirubin 0.4 mg/dL (0.2-1.3); Total Protein 5.6 g/dL (6.3-8.2)
--- NOTE | 2023-05-29 03:58 | CT ---
EXAM: CT Head Without Intravenous Contrast CLINICAL HISTORY: ITS.REASON CT Reason: fall TECHNIQUE: Axial computed tomography images of the head/brain without intravenous contrast. CTDI is 57.4 mGy and DLP is 1856.7 mGy-cm. This CT exam was performed using one or more of the following dose reduction techniques: automated exposure control, adjustment of the mA and/or kV according to patient size, and/or use of iterative reconstruction technique. COMPARISON: No relevant prior studies available. FINDINGS: Brain: No hemorrhage or mass effect. Ventricles: No hydrocephalus. Bones/joints: Unremarkable. Soft tissues: Unremarkable. Sinuses: No air fluid level. Mastoid air cells: Clear. IMPRESSION: No acute hemorrhage, hydrocephalus, or mass effect. EXAM: CT Cervical Spine Without Intravenous Contrast CLINICAL HISTORY: ITS.REASON CT Reason: fall TECHNIQUE: Axial computed tomography images of the cervical spine without intravenous contrast. CTDI is 57.4 mGy and DLP is 1856.7 mGy-cm. This CT exam was performed using one or more of the following dose reduction techniques: automated exposure control, adjustment of the mA and/or kV according to patient size, and/or use of iterative reconstruction technique. COMPARISON: No relevant prior studies available. FINDINGS: Vertebrae: No acute fracture. ACDF. Discs/spinal canal/neural foramina: degenerative changes. Soft tissues: No prevertebral swelling. IMPRESSION: No acute fracture or subluxation.
[2023-05-29] MEDS ORDERED: NALOXONE 0.4 MG/ML 1 ML VIAL IV PRN (05:13)
[2023-05-29] MEDS: SODIUM CHLORIDE 0.9% 1,000 ML IV SCH (05:26)
--- NOTE | 2023-05-29 05:34 | XR ---
EXAM: XR Chest, 1 View CLINICAL HISTORY: ITS.REASON XR Reason: syncope TECHNIQUE: Frontal view of the chest. COMPARISON: No relevant prior studies available. FINDINGS: Lungs: Unremarkable. No consolidation. Pleural space: Unremarkable. No pneumothorax. Heart: Unremarkable. No cardiomegaly. Mediastinum: Unremarkable. Bones/joints: Unremarkable. IMPRESSION: Normal chest x-ray.
[2023-05-29] MEDS ORDERED: MORPHINE SULFATE 4 MG/ML SYRINGE IVP STA (06:06)
[2023-05-29] MEDS ORDERED: DOBUTamine DRIP for NUC MED 500 MG/250 ML BAG IV ONE (08:00)
[2023-05-29] MEDS ORDERED: DOBUTamine DRIP for NUC MED 500 MG in DEXTROSE/WATER 1 250ML.BAG IV PRN (08:35)
[2023-05-29] MEDS ORDERED: APIXABAN 5 MG TAB PO SCH (10:00)
--- NOTE | 2023-05-29 10:05 | P.CRDCN ---
History of Present Illness Consult date: 05/29/23 Consult reason: chest pain History of present illness: History of present illness: This is a 62 year old female previously seen in the office with Dr. Sylvia Lee in 2019 prior to cervical spine fusion surgery. She has a past medical history of DVT right leg, hyperlipidemia, gastroesophageal reflux disease, TIAs, asthma, hypertension. We have been asked to evaluate the patient for syncope. Patient states that she woke up around 1:30 this morning was feeling hungry went to the kitchen to make herself a sandwich. The next thing she knew she was dizzy and woke up on the floor. Her grandson was present and thought she had lost conscious for a couple minutes. Patient denies having any one-sided weakness. She does have chronic left-sided weakness but denies any change, no loss of bowel or urine, no change in her speech. Patient states that she did have occasional chest pain or tightness in her chest and she has dyspnea on exertion which she thinks is related to asthma. She states she has difficulty doing her housework and has since stopped frequently because she feels weak or has dyspnea on exertion. She does have chronic back pain and neck pain. She is a nonsmoker. EKG sinus rhythm and no acute ST changes. Chest x-ray: Normal CAT scan of the brain no acute findings CAT scan of the cervical spine no acute fracture subluxation CBC, INR, electrolytes and renal function all normal. Magnesium 1.9 and potassium 4. Blood sugar 92. Liver function tests normal. Troponin negative 1. Home cardiac medications: Eliquis 5 mg twice daily, atorvastatin 10 mg at bedtime, levothyroxine 50 g daily. Review Of Systems: At the time of my evaluation: Constitutional: No fever, no chills. No weakness, fatigue or lethargy. EENT: No headache. No dizziness. Lungs: No shortness of breath, cough, no sputum production. No wheezing. Cardiovascular: No chest pain, no lower extremity edema. No palpitations. No paroxysmal nocturnal dyspnea. No orthopnea. No lightheadedness or dizziness. No syncopal episodes. Abdominal: No abdominal pain. No nausea, vomiting. No diarrhea. No constipation. No bloody or tarry stools. Genitourinary: No dysuria.. No urinary retention. Musculoskeletal: No myalgias. No muscle weakness, no frequent falls. No back pain. No neck pain. Integumentary: No wounds. No rash. No unusual bruising. Neurologic: No aphasia. No facial droop. No change in mentation. No head injury. No headache. Physical examination: Gen: This is a 62-year-old female seen in the emergency center appears to be in no acute distress. VS: reviewed HEENT: Head is atraumatic, normocephalic. Pupils equal, round. Sclerae is anicteric. NECK: Supple. No JVD. . LUNGS: Clear to auscultation. No wheezes or rhonchi. No intercostal retractions. HEART: Regular rate and rhythm. No murmur. ABDOMEN: Soft No tenderness. EXTREMITIES: No pedal edema. No calf tenderness. NEUROLOGICAL: Patient is awake, alert and oriented x3. Assessment: Syncopal episode of unclear etiology Chest tightness, acute coronary syndrome ruled out Dyspnea on exertion History of DVT right leg Hyperlipidemia Hypertension TIAs Gastroesophageal reflux disease Asthma Plan: Resume patient's home cardiac medications Obtain dobutamine stress echocardiogram today Obtain 2-D echocardiogram and Doppler study to assess cardiac structure and function If stress test and echocardiogram are unremarkable, patient is cleared for disc harge home. Thank you kindly for this consultation. Nurse practitioner note has been reviewed, I agree with documented findings and plan of care. Patient was seen and examined. Past Medical History Past Medical History: Asthma, CVA/TIA, GERD/Reflux, Hyperlipidemia, Hypertension, Pneumonia, Thyroid Disorder Additional Past Medical History / Comment(s): freq stridor,tracheal malacia, steroid injection November 2022,HEADACHES, CHRONIC BACK AND NECK PAIN, STATES "THICKENING OF THE HEART", OCCASIONAL SWELLING LEFT LEG, STATES TIA FEBRUARY 2018 AND HAS WEAKNESS & DIZZINESS & CONFUSION SINCE TIA ., USING WALKER prn ., STOMACH ULCER, HIATAL HERNIA. 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 COLONOSCOPY. bronchoscopy Past Anesthesia/Blood Transfusion Reactions: No Reported Reaction Additional Past Anesthesia/Blood Transfusion Reaction / Comment(s): pt states layngeal palsy with difficulty swallowing after cervical surgery. maternal aunt and grandma difficulty waking after anesthesia Past Psychological History: Anxiety, Depression Smoking Status: Never smoker Past Alcohol Use History: None Reported Past Drug Use History: None Reported - Past Family History Father Family Medical History: Unable to Obtain Additional Family Medical History / Comment(s): schizoprenia Mother Family Medical History: COPD, CVA/TIA Medications and Allergies Home Medications Medication Instructions Recorded Confirmed Type Butalb/APAP/Caff 50-325-40Mg 1 tab PO BID PRN 04/23/18 05/29/23 History [Fioricet 50-325-40] Montelukast [Singulair] 10 mg PO HS 04/23/18 05/29/23 History Albuterol Sulfate [Albuterol 2 puff INHALATION RT-QID PRN 12/25/18 05/29/23 History Sulfate Hfa] Famotidine [Pepcid] 20 mg PO HS 01/31/20 05/29/23 History Levothyroxine Sodium [Synthroid] 50 mcg PO DAILY 01/31/20 05/29/23 History DULoxetine HCL [Cymbalta] 60 mg PO DAILY 09/20/20 05/29/23 History Omeprazole [PriLOSEC] 20 mg PO DAILY 03/26/21 05/29/23 History Apixaban [Eliquis] 5 mg PO BID 12/16/22 05/29/23 History clonazePAM [KlonoPIN] 0.5 mg PO BID PRN 12/16/22 05/29/23 History Atorvastatin [Lipitor] 10 mg PO HS 05/29/23 05/29/23 History Baclofen [Lioresal] 20 mg PO TID PRN 05/29/23 05/29/23 History Budesonide/Formoterol Fumarate 2 puff INHALATION RT-BID 05/29/23 05/29/23 History [Symbicort 160-4.5 Mcg Inhaler] Allergies Allergy/AdvReac Type Severity Reaction Status Date / Time No Known Allergies Allergy Verified 05/29/23 08:47 Physical Exam Vitals: Vital Signs Temp Pulse Resp BP Pulse Ox 05/29/23 06:31 87 16 147/78 95 05/29/23 06:00 81 16 151/88 95 05/29/23 03:00 89 16 132/87 97 05/29/23 02:01 97.6 F 82 16 140/72 96 Intake and Output 05/28/23 05/29/23 05/29/23 22:59 06:59 14:59 Other: Weight 95.254 kg Results 05/29/23 02:31 05/29/23 02:31 Cardiac Enzymes 05/29/23 05/29/23 Range/Units 02:31 02:31 AST 21 (14-36) U/L Troponin I <0.012 (0.000-0.034) ng/mL Coagulation 05/29/23 Range/Units 02:31 PT 11.7 (10.0-12.5) sec APTT 26.7 (22.0-30.0) sec CBC 05/29/23 Range/Units 02:31 WBC 4.6 (3.8-10.6) k/uL RBC 3.80 (3.80-5.40) m/uL Hgb 12.1 (11.4-16.0) gm/dL Hct 36.4 (34.0-46.0) % Plt Count 160 (150-450) k/uL Comprehensive Metabolic Panel 05/29/23 Range/Units 02:31 Sodium 137 (137-145) mmol/L Potassium 4.0 (3.5-5.1) mmol/L Chloride 107 (98-107) mmol/L Carbon Dioxide 23 (22-30) mmol/L BUN 12 (7-17) mg/dL Creatinine 0.75 (0.52-1.04) mg/dL Glucose 92 (74-99) mg/dL Calcium 8.3 L (8.4-10.2) mg/dL AST 21 (14-36) U/L ALT 19 (4-34) U/L Alkaline Phosphatase 89 (38-126) U/L Total Protein 5.6 L (6.3-8.2) g/dL Albumin 3.4 L (3.5-5.0) g/dL Current Medications Generic Name Dose Route Start Last Admin Trade Name Freq PRN Reason Stop Dose Admin Sodium Chloride 1,000 mls @ 20 mls/hr 05/29/23 05:15 05/29/23 05:26 Saline 0.9% IV 20 mls/hr .Q24H MIKA Administration Naloxone HCl 0.2 mg 11/02/23 05:13 Naloxone 0.4 Mg/Ml 1 Ml Vial IV Q2M PRN Opioid Reversal Intake and Output 05/28/23 05/29/23 05/29/23 22:59 06:59 14:59 Other: Weight 95.254 kg 05/29/23 02:31 05/29/23 02:31
--- NOTE | 2023-05-29 11:57 | P.HPIM ---
History of Present Illness H&P Date: 05/29/23 Chief Complaint: syncope This is a 62 year old female patient of my practice. She got up last night to make a cheese sandwich. She reports at some point she lost consciousness. She has no recollection of the events. Family had called EMS.She has a history of DVT, and is on Eliquis. Upon awakening, she had no complaints other than back pain. She denies any chest pain, shortness of breath that is different anyway. She does have chronic shortness of breath from asthma. She denies any nausea or vomiting. She denied urinating or defecating.She did not bite her tongue.This mo rning she is resting comfortably in her hospital bed. Her main complaint is back pain. Patient is afebrile, heart rate is regular, blood pressure normal. Laboratory studies are normal. Review of Systems All systems: negative Past Medical History Past Medical History: Asthma, CVA/TIA, GERD/Reflux, Hyperlipidemia, Hyper tension, Pneumonia, Thyroid Disorder Additional Past Medical History / Comment(s): freq stridor,tracheal malacia, steroid injection November 2022,HEADACHES, CHRONIC BACK AND NECK PAIN, STATES "THICKENING OF THE HEART", OCCASIONAL SWELLING LEFT LEG, STATES TIA FEBRUARY 2018 AND HAS WEAKNESS & DIZZINESS & CONFUSION SINCE TIA ., USING WALKER prn ., STOMACH ULCER, HIATAL HERNIA. 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 COLONOSCOPY. bronchoscopy Past Anesthesia/Blood Transfusion Reactions: No Reported Reaction Additional Past Anesthesia/Blood Transfusion Reaction / Comment(s): pt states layngeal palsy with difficulty swallowing after cervical surgery. maternal aunt and grandma difficulty waking after anesthesia Past Psychological History: Anxiety, Depression Smoking Status: Never smoker Past Alcohol Use History: None Reported Past Drug Use History: None Reported - Past Family History Father Family Medical History: Unable to Obtain Additional Family Medical History / Comment(s): schizoprenia Mother Family Medical History: COPD, CVA/TIA Medications and Allergies Home Medications Medication Instructions Recorded Confirmed Type Butalb/APAP/Caff 50-325-40Mg 1 tab PO BID PRN 04/23/18 05/29/23 History [Fioricet 50-325-40] Montelukast [Singulair] 10 mg PO HS 04/23/18 05/29/23 History Albuterol Sulfate [Albuterol 2 puff INHALATION RT-QID PRN 12/25/18 05/29/23 History Sulfate Hfa] Famotidine [Pepcid] 20 mg PO HS 01/31/20 05/29/23 History Levothyroxine Sodium [Synthroid] 50 mcg PO DAILY 01/31/20 05/29/23 History DULoxetine HCL [Cymbalta] 60 mg PO DAILY 09/20/20 05/29/23 History Omeprazole [PriLOSEC] 20 mg PO DAILY 03/26/21 05/29/23 History Apixaban [Eliquis] 5 mg PO BID 12/16/22 05/29/23 History clonazePAM [KlonoPIN] 0.5 mg PO BID PRN 12/16/22 05/29/23 History Atorvastatin [Lipitor] 10 mg PO HS 05/29/23 05/29/23 History Baclofen [Lioresal] 20 mg PO TID PRN 05/29/23 05/29/23 History Budesonide/Formoterol Fumarate 2 puff INHALATION RT-BID 05/29/23 05/29/23 History [Symbicort 160-4.5 Mcg Inhaler] Allergies Allergy/AdvReac Type Severity Reaction Status Date / Time No Known Allergies Allergy Verified 05/29/23 08:47 Physical Exam Vitals: Vital Signs Temp Pulse Pulse Resp BP BP BP 05/29/23 10:23 97.9 F 88 18 112/75 120/64 05/29/23 09:47 98.2 F 98 18 142/78 05/29/23 06:31 87 16 147/78 05/29/23 06:00 81 16 151/88 05/29/23 03:00 89 16 132/87 05/29/23 02:01 97.6 F 82 16 140/72 BP Pulse Ox 05/29/23 10:23 128/76 94 L 05/29/23 09:47 93 L 05/29/23 06:31 95 05/29/23 06:00 95 05/29/23 03:00 97 05/29/23 02:01 96 Intake and Output 05/28/23 05/29/23 05/29/23 22:59 06:59 14:59 Other: Weight 95.254 kg 95.254 kg General: The patient is awake and alert, in minimal distress, and does not appear acutely ill. HEENT: PERRLA, EOMI, normal oropharynx Neck: The neck is supple, there is no thyromegaly, lymphadenopathy, tenderness or JVD. Cardiovascular: S1S2 is normal, There is a regular rate and rhythm. No murmur, rub or gallop is appreciated. Respiratory: Lungs are clear to auscultationb bilaterally, respirations are non- labored, breath sounds are equal. Gastrointestinal: Soft, non-distended, without masses or organomegaly noted. There is no rebound or guarding present. Bowel sounds are unremarkable. tender to midepigastric palpation Musculoskeletal: Normal ROM, no tenderness, There is no pedal edema. There is no calf tenderness or swelling. No cords were appreciated. Back exam was deferred Neurological: CN II-XII intact, there are no obvious motor or sensory deficits. Coordination appears grossly intact. Speech is normal.he is awake alert and oriented 3 today. Skin: Skin is warm and dry and no rashes or lesions are noted. Results CBC & Chem 7: 05/29/23 02:31 05/29/23 02:31 Labs: Abnormal Lab Results - Last 24 Hours (Table) 05/29/23 Range/Units 02:31 Calcium 8.3 L (8.4-10.2) mg/dL Total Protein 5.6 L (6.3-8.2) g/dL Albumin 3.4 L (3.5-5.0) g/dL Chest x-ray: report reviewed CT Scan - head: report reviewed Thrombosis Risk Factor Assmnt - DVT/VTE Prophylaxis DVT/VTE Prophylaxis: Pharmacologic Prophylaxis ordered (Continue patient's Eliquis) - Choose All That Apply Any of the Below Risk Factors Present?: No Other Risk Factors: Yes Each Risk Factor Represents 2 Points: Age 61-74 years Thrombosis Risk Factor Assessment Total Risk Factor Score: 2 Thrombosis Risk Factor Assessment Level: Low Risk Assessment and Plan (1) Syncope Current Visit: Yes Status: Acute Code(s): R55 - SYNCOPE AND COLLAPSE SNOMED Code(s): 834218682 (2) Back pain Current Visit: Yes Status: Acute Code(s): M54.9 - DORSALGIA, UNSPECIFIED SNOMED Code(s): 713249589 (3) Fall Current Visit: Yes Status: Acute Code(s): W19.XXXA - UNSPECIFIED FALL, INITIAL ENCOUNTER SNOMED Code(s): 9532580 (4) USP (current) use of anticoagulants Current Visit: Yes Status: Acute Code(s): Z79.01 - HEALTH SAFETY ENGINEER (CURRENT) USE OF ANTICOAGULANTS SNOMED Code(s): 035397331 (5) Essential (primary) hypertension Current Visit: Yes Status: Acute Code(s): I10 - ESSENTIAL (PRIMARY) HYPERTENSION SNOMED Code(s): 40078464 (6) Mixed hyperlipidemia Current Visit: Yes Status: Acute Code(s): E78.2 - MIXED HYPERLIPIDEMIA SNOMED Code(s): 851518428 (7) Asthma Current Visit: No Status: Acute Code(s): J45.909 - UNSPECIFIED ASTHMA, UNCOMPLICATED SNOMED Code(s): 563091457 (8) Migraine Current Visit: No Status: Acute Code(s): G43.909 - MIGRAINE, UNSP, NOT INTRACTABLE, WITHOUT STATUS MIGRAINOSUS SNOMED Code(s): 97769961 (9) Weakness Current Visit: No Status: Acute Code(s): R53.1 - WEAKNESS SNOMED Code(s): 35674516 Plan: We will consult neurology and cardiology. We'll obtain an x-ray of her L-spine. She will resume her home medication's. She will have labs repeated in a.m. She will be reevaluated in the next 24 hours.
[2023-05-29] MEDS ORDERED: ALBUTEROL NEBULIZED 2.5 MG/3 ML INHALATION PRN (12:01)
[2023-05-29] MEDS: PANTOPRAZOLE 40 MG/10 ML VIAL IVP SCH (13:30)
[2023-05-29] MEDS: LIDOCAINE 5% PATCH TOPICAL SCH (13:30)
--- NOTE | 2023-05-29 15:11 | XR ---
EXAM TYPE: LUMBAR SPINE X RAY SERIES COMPARISON: CT scan 09/20/2020, chest x-ray 05/29/2023 HISTORY: Pain TECHNIQUE: 4 views are submitted. FINDINGS: Alignment is anatomic. The pedicles are intact. The transverse processes are intact. There is anter ior wedge fracture of T11. Facet arthropathy L5-S1. Diffuse osteopenia. Angulated appearance of the s acrococcygeal junction is stable dating back to CT scan of 09/20/2020. IMPRESSION: 1. There is a anterior wedge fracture of T11. This could be acute correlate with point tenderness. 2. Angulated appearance of the sacrococcygeal junction is stable dating back to 09/20/2020 and felt to be chronic. Correlate with point tenderness.
--- NOTE | 2023-05-29 15:12 | XR ---
EXAMINATION TYPE: XR pelvis AP view DATE OF EXAM: 05/29/2023 COMPARISON: NONE HISTORY: Pain The osseous structures are intact and the joint spaces are preserved. No acute fracture is seen. Vi sualized bowel gas pattern is nonspecific. Hypertrophic arthropathy of the symphysis pubis. Mild onur ateral hip arthropathy. Diffuse osteopenia. IMPRESSION: 1. No acute fracture.
--- NOTE | 2023-05-29 15:14 | XR ---
EXAMINATION TYPE: XR thoracic spine 2V DATE OF EXAM: 05/29/2023 COMPARISON: Chest x-ray 06/25/2020 HISTORY: Pain TECHNIQUE: 3 views submitted FINDINGS: Alignment is anatomic. The pedicles are intact. The transverse processes are intact. There is anter ior wedge fracture of T11. Facet arthropathy L5-S1. Diffuse osteopenia. Postsurgical change overlying the cervical spine. Visualized lung perera clear. IMPRESSION: 1. There is a moderate anterior wedge fracture of T11. This could be acute correlate with point tend erness.
[2023-05-29] MEDS ORDERED: ACETAMINOPHEN TAB 325 MG TAB PO PRN (15:57)
[2023-05-29] MEDS: traMADol 50 MG TAB PO SCH ×2 (16:24→20:44)
--- NOTE | 2023-05-29 17:10 | US ---
EXAMINATION TYPE: US carotid duplex BILAT DATE OF EXAM: 05/29/2023 Exam done portable COMPARISON: US 2018 CLINICAL INDICATION: Female, 62 years old with history of Syncope; TECHNIQUE: Carotid duplex ultrasound examination. Indirect Doppler criteria was utilized. FINDINGS: EXAM MEASUREMENTS: RIGHT: Peak Systolic Velocity (PSV) cm/sec ----- Right CCA: 114.0 ----- Right ICA: 86.3 ----- Right ECA: 85.3 ICA/CCA ratio: 0.7 RIGHT: End Diastole cm/sec ----- Right CCA: 29.6 ----- Right ICA: 27.1 ----- Right ECA: 14.8 LEFT: Peak Systolic Velocity (PSV) cm/sec ----- Left CCA: 87.9 ----- Left ICA: 75.4 ----- Left ECA: 70.5 ICA/CCA ratio: 0.9 LEFT: End Diastole cm/sec ----- Left CCA: 23.1 ----- Left ICA: 29.6 ----- Left ECA: 13.4 VERTEBRALS (direction of flow): Right Vertebral: Antegrade Left Vertebral: Antegrade Rhythm: Normal No significant stenosis IMPRESSION: Less than 50% stenosis of the bilateral carotid bifurcation. Criteria for Assigning % of Stenosis / Diameter reduction (Estimation based on the indirect measurements of the internal carotid artery velocities (ICA PSV). 1. Normal (no stenosis)=ICA PSV < 125 cm/s: ratio < 2.0: ICA EDV<40 cm/s. 2. Less than 50% stenosis=ICA PSV < 125 cm/s: ratio < 2.0: ICA EDV<40 cm/s. 3. 50 to 69% stenosis=ICA PSV of 125 to 230 cm/s: ration 2.0 ? 4.0: ICA EDV 40-100 cm/s. 4. Greater than 70% stenosis to near occlusion= ICA PSV > 230 cm/s: ratio > 4.0: ICA EDV > 100 cm/s. 5. Near occlusion= ICA PSV velocities may be low or undetectable: variable ratio and ICA EDV. 6. Total occlusion=unable to detect flow.
--- NOTE | 2023-05-29 18:12 | P.CNOR ---
History of Present Illness - [facility] Consult date: 05/29/23 Requesting physician: Anabelle Boucher Consult reason: other (T11 compression fracture) History of present illness: Patient is a 62-year-old female who presents to the emergency department early this morning after a syncopal episode at home. Patient does have a past medical history significant for heart attack disease, SC, DVT, hyperlipidemia, GERD, asthma, hypertension. Orthopedics was consulted due to T11 compression fracture found on x-ray. Patient states her grandson found her later that night on the kitchen floor and she came into the emergency department. Patient does not rec all falling at home. Patient complains mostly of mid-low back pain at midline. Patient seen at bedside this afternoon states that she is having pinpoint tenderness to the back. Patient says there is some radiation of pain to the front near her bellybutton. Patient denies any other areas of pain in the extremities. Patient says she did have a C4 to C5 decompression and fusion surgery performed by at [place] in 2018. Patient denies any other orthopedic surgical history. Patient normally ambulates and family at home. Patient says she has not been walking since she came to the hospital. Patient denies having any other recent trauma/falls. Patient denies chest pain, fever, nausea, vomiting, change in vision, loss of bowel/bladder control Past Medical History Past Medical History: Asthma, CVA/TIA, GERD/Reflux, Hyperlipidemia, Hypertension , Pneumonia, Thyroid Disorder Additional Past Medical History / Comment(s): freq stridor,tracheal malacia, steroid injection November 2022,HEADACHES, CHRONIC BACK AND NECK PAIN, STATES "THICKENING OF THE HEART", OCCASIONAL SWELLING LEFT LEG, STATES TIA FEBRUARY 2018 AND HAS WEAKNESS & DIZZINESS & CONFUSION SINCE TIA ., USING WALKER prn ., STOMACH ULCER, HIATAL HERNIA. 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 COLONOSCOPY. bronchoscopy Past Anesthesia/Blood Transfusion Reactions: No Reported Reaction Additional Past Anesthesia/Blood Transfusion Reaction / Comm: pt states layngeal palsy with difficulty swallowing after cervical surgery. maternal aunt and grandma difficulty waking after anesthesia Past Psychological History: Anxiety, Depression Smoking Status: Never smoker Past Alcohol Use History: None Reported Past Drug Use History: None Reported - Past Family History Father Family Medical History: Unable to Obtain Additional Family Medical History / Comment(s): schizoprenia Mother Family Medical History: COPD, CVA/TIA Medications and Allergies Home Medications Medication Instructions Recorded Confirmed Type Butalb/APAP/Caff 50-325-40Mg 1 tab PO BID PRN 04/23/18 05/29/23 History [Fioricet 50-325-40] Montelukast [Singulair] 10 mg PO HS 04/23/18 05/29/23 History Albuterol Sulfate [Albuterol 2 puff INHALATION RT-QID PRN 12/25/18 05/29/23 History Sulfate Hfa] Famotidine [Pepcid] 20 mg PO HS 01/31/20 05/29/23 History Levothyroxine Sodium [Synthroid] 50 mcg PO DAILY 01/31/20 05/29/23 History DULoxetine HCL [Cymbalta] 60 mg PO DAILY 09/20/20 05/29/23 History Omeprazole [PriLOSEC] 20 mg PO DAILY 03/26/21 05/29/23 History Apixaban [Eliquis] 5 mg PO BID 12/16/22 05/29/23 History clonazePAM [KlonoPIN] 0.5 mg PO BID PRN 12/16/22 05/29/23 History Atorvastatin [Lipitor] 10 mg PO HS 05/29/23 05/29/23 History Baclofen [Lioresal] 20 mg PO TID PRN 05/29/23 05/29/23 History Budesonide/Formoterol Fumarate 2 puff INHALATION RT-BID 05/29/23 05/29/23 History [Symbicort 160-4.5 Mcg Inhaler] Allergies Allergy/AdvReac Type Severity Reaction Status Date / Time No Known Allergies Allergy Verified 05/29/23 08:47 Physical Examination Inspection: Negative for any open fractures, significant erythema/ecchymosis/open wounds. Sensation: Equal, symmetric, bilaterally intact throughout the upper and lower extremities on exam. Palpation: Moderate tenderness to patient that midline in the lower thoracic spine. Nontender to palpation throughout rest exam. Range of motion: Patient has full range of motion throughout the bilateral upper and lower extremities on exam. Motor: 4/5 in all major motor groups in bilateral upper and lower extremities. Neurovascular: Radial pulse intact, 2+. Cap refill under 3 seconds in digits of the upper extremities. Special tests: Negative Homans bilaterally. Negative clonus bilaterally. Results - Labs Labs: Abnormal Lab Results - Last 24 Hours (Table) 05/29/23 Range/Units 02:31 Calcium 8.3 L (8.4-10.2) mg/dL Total Protein 5.6 L (6.3-8.2) g/dL Albumin 3.4 L (3.5-5.0) g/dL H & H 05/29/23 Range/Units 02:31 Hgb 12.1 (11.4-16.0) gm/dL Hct 36.4 (34.0-46.0) % Coagulation 05/29/23 Range/Units 02:31 INR 1.1 (<1.2) Result Diagrams: 05/29/23 02:31 05/29/23 02:31 - Diagnostic results Lumbar AP/lateral x-ray: report reviewed, image reviewed (Thoracic and lumbar x- rays reviewed. There is a vertebral compression fracture at T11. Does appear to be acute in nature. Computed tomography scan of the cervical spine does demonstrate previous C4 to C5 anterior cervical decompression and fusion) Assessment and Plan Assessment: 1. T11 vertebral compression fracture, acute Plan: 1. T11 vertebral compression fracture, acute - patient examined at bedside this afternoon. Patient does have pinpoint tenderness over the lower thoracic spine and midline. Thoracic and lumbar x-rays reviewed. There is a vertebral compression fracture at T11. Does appear to be acute in nature. Computed t omography scan of the cervical spine does demonstrate previous C4 to C5 anterior cervical decompression and fusion. I did discuss the findings of the exam with my attending, Dr. Farah. At this time we are recommending surgical intervention in the form of T11 kyphoplasty. Patient would like to move forward with surgical intervention in the form of T11 kyphoplasty for vertebral compression fracture. At this time we recommend continued management with pain medication. Patient may benefit from a TLSO brace as well due to the injury. Patient may weight-bear as tolerated with walker and brace on while up and about. With hold blood thinners at this time. We will continue to follow aba ent during her stay in hospital. 2. Appreciate medical and cardiac management 3. Pain management - tramadol; Tylenol 4. GI prophylaxis - Protonix 5. DVT prophylaxis - with hold blood thinners at this time. 6. PT/OT - TLSO brace on while up and about. Weightbearing as tolerated with walker as needed 7. Encourage incentive spirometer use 8. Appreciate consult Time with Patient: Less than 30
[2023-05-29] MEDS: SYMBICORT 160-4.5 MCG INHALER INHALATION SCH (19:45)
[2023-05-29] MEDS: MONTELUKAST 10 MG TAB PO SCH (20:44)
[2023-05-29] MEDS: ATORVASTATIN 10 MG TAB PO SCH (20:44)
[2023-05-29] MEDS ORDERED: clonazePAM 0.5 MG TAB PO ONE (20:58)
[2023-05-30] MEDS: LEVOTHYROXINE 50 MCG TAB PO SCH (05:53)
[2023-05-30] MEDS: SODIUM CHLORIDE 0.9% 1,000 ML IV SCH (05:56)
--- NOTE | 2023-05-30 07:06 | CA ---
Transthoracic Echo Report Name: Luzmaria Nobles Age: 62 Gender: F : 1960 Exam Date: 05/29/2023 15:01 Exam Location: [facility] Ht (in): 68 Wt (lb): 210 Ordering Physician: Zaria García Attending/Referring Phys: Sarina Clements Wheel Blocker Ayanna Carlos RDCS Procedure CPT: Indications: LVF Cardiac Hx: Technical Quality: Fair Contrast 1: Total Dose (mL): Contrast 2: Total Dose (mL): MEASUREMENTS (Male / Female) Normal Values 2D ECHO LV Diastolic Diameter PLAX 4.2 cm 4.2 - 5.9 / 3.9 - 5.3 cm LV Systolic Diameter PLAX 2.7 cm IVS Diastolic Thickness 1.3 cm 0.6 - 1.0 / 0.6 - 0.9 cm LVPW Diastolic Thickness 1.3 cm 0.6 - 1.0 / 0.6 - 0.9 cm LV Relative Wall Thickness 0.6 RV Internal Dim ED PLAX 3.0 cm LA Systolic Diameter LX 3.3 cm 3.0 - 4.0 / 2.7 - 3.8 cm LV Diastolic Volume MOD BP 72.1 cm??? 67 - 155 / 56 - 104 cm??? LV Systolic Volume MOD BP 27.1 cm??? 22 - 58 / 19 - 49 cm??? LV Ejection Fraction MOD BP 62.5 % >= 55 % LV Cardiac Index MOD BP 1788.4 cm???/min???m??? LV Diastolic Volume MOD 4C 87.1 cm??? LV Systolic Volume MOD 4C 35.7 cm??? LV Ejection Fraction MOD 4C 59.0 % LV Cardiac Index MOD 4C 2037.5 cm???/min???m??? LV Diastolic Length 4C 7.7 cm LV Systolic Length 4C 6.1 cm LV Diastolic Volume MOD 2C 60.0 cm??? LV Systolic Volume MOD 2C 20.7 cm??? LV Ejection Fraction MOD 2C 65.4 % LV Cardiac Index MOD 2C 1556.7 cm???/min???m??? LV Diastolic Length 2C 7.9 cm LV Systolic Length 2C 6.1 cm LA Volume 55.1 cm??? 18 - 58 / 22 - 52 cm??? LA Volume Index 25.4 cm???/m??? 16 - 28 cm???/m??? M-MODE Aortic Root Diameter MM 3.2 cm MV E Point Septal Separation 0.1 cm AV Cusp Separation MM 2.1 cm DOPPLER AV Peak Velocity 116.9 cm/s AV Peak Gradient 5.5 mmHg MV Area PHT 3.3 cm??? Mitral E Point Velocity 75.2 cm/s Mitral A Point Velocity 68.4 cm/s Mitral E to A Ratio 1.1 MV Deceleration Time 227.1 ms MV E' Velocity 9.5 cm/s Mitral E to MV E' Ratio 8.0 TR Peak Velocity 218.5 cm/s TR Peak Gradient 19.1 mmHg Right Ventricular Systolic Press 24.0 mmHg FINDINGS Left Ventricle Left ventricular ejection fraction is estimated at 55-60 %. Left ventricular cavity size normal. Mild concentric left ventricular hypertrophy.normal left ventricular wall motion. Right Ventricle Normal right ventricular size. Right ventricular systolic pressure within normal limits. Right Atrium Normal right atrial size. Left Atrium Mildly increased left atrial volume. Mitral Valve Structurally normal mitral valve. Trace to mild mitral regurgitation. Aortic Valve Trileaflet aortic valve. No aortic valve stenosis or regurgitation. Tricuspid Valve Structurally normal tricuspid valve. Mild tricuspid regurgitation. Pulmonic Valve Structurally normal pulmonic valve. Trace to mild pulmonic regurgitation. Pericardium No pericardial effusion. Aorta Normal size aortic root and proximal ascending aorta. CONCLUSIONS 1. Normal left ventricular size and systolic function 2. Trace to mild mitral with mild tricuspid regurgitation Previewed by: Dr. Shi Shields MD (Electronically Signed) Final Date: 30 May 2023 07:05
--- NOTE | 2023-05-30 07:45 | P.CNNES ---
History of Present Illness Consult date: 05/29/23 Requesting physician: Kayla Lopez Reason for Consult: Syncope History of Present Illness: Patient is a 62-year-old right-handed female who came to the hospital at 1:59 AM early this morning by ambulance for syncopal spell. Patient states that she woke up in the middle of night and wanted to have a cheese sandwich. She started making cheese sandwich, and was not feeling well, got dizzy, disoriented, felt hot. After eating the first, she wanted to make a second sandwich. The next thing she woke up under the kitchen table and the head was wedged between 2 chairs. Her grandson heard a fall, and when he came o philomena, she was unresponsive. There was no tongue bite, loss of control of urine or any seizure-like activity. She passed out for a short while. Her back was hurting, probably due to hitting either the kitchen table or she landed on the wooden floor. Patient's daughter also came over, and they called the ambulance. Patient has been complaining of body aches for the past couple of days but denies any recent fevers or feeling ill. Her vitals at the scene was blood pressure 137/77, pulse 79, respirations 16, saturation 94 percent, blood sugar 108. Vital signs on arrival blood pressure 140/72, pulse 82, temperature 97.6. Patient had orthostatics checked, which was negative, with supine blood pressure 128/76, sitting 112/75, standing 120/64. CT head showed no acute hemorrhage, hydrocephalus or mass effect. I personally reviewed CT head, agree with the findings. CT of the cervical spine showed no acute fracture or subluxation. EKG shows sinus rhythm, chest x-ray is normal lumbar x-ray revealed there is anterior wedge fracture of T11. This could be acute correlate. Point tenderne ss. Angulated appearance of the sacral coccygeal junction is stable dating back to 09/20/2020 and felt to be chronic. Correlate with point tenderness. X-ray of the pelvis shows no fracture. X-ray of the thoracic spine also showed moderate anterior wedge fracture of T11. Blood test shows normal CBC, PT/PTT, normal CMP. Troponin negative. Patient has history of dizziness off and on since 2018, that comes and goes but occurs every day. Patient states that she had undergone tilt table test, and meclizine did not help. Klonopin is working. Some days she wakes up at night with dizziness. When she shakes her head, that makes dizzy, bending down also makes her dizzy. Looking up or rolling over in the bed does not make her dizzy. Once the dizziness happens, it lasts for about half an hour. Patient admits to having pressure in the ears, and roaring sound sometimes. She takes Klonopin. She fell 9 times in the last 8 weeks. She claims it because of losing balance and falling, did not pass out. Patient does have a walker and a cane at home. Prior to these 8 weeks, she has had falls, "here and there". Patient denies any syncopal episode ever in the past. Patient follows up with Dr. Gonzalez. Patient says she has history of "TIA" in 2018, and since then she has some weakness of the left side and she gets numbness and tingling off and on on the left side. She also gets pain in the left arm. Patient had an MRI of the brain performed 02/25/2018 at [facility] at that time which was negative for any acute stroke. She had a CTA of the neck also performed at that time, which revealed mild plaque formation at the right carotid artery bifurcation and 25% stenosis at the origin of the right ICA. Patient says that she does have rotator cuff issues on the left side. No previous history of diabetes. She does have hypertension and migraines. Denies any tobacco or alcohol use. Patient is on Eliquis for her history of DVT. Review of Systems Constitutional: Reports chills, Denies fever Eyes: right loss of vision (With migraine, see flashes light and left eye goes woods, lasts 3-5 minutes), denies blurred vision, denies diplopia, denies pain Ears: left: decreased hearing, earache, bilateral: tinnitus (Roaring sound sometimes), deny: ear discharge Ears, nose, mouth and throat: Reports headache, Reports sore throat (gets a lot) Cardiovascular: Reports chest pain, Reports shortness of breath Respiratory: Reports wheezing, Denies cough, Denies excessive sputum Gastrointestinal: Reports diarrhea, Reports nausea, Denies abdominal pain, Denies vomiting Genitourinary: Reports mixed incontinence, Denies dysuria, Denies flank pain Musculoskeletal: Reports low back pain, Reports neck pain Integumentary: Denies pruritus, Denies rash Neurological: Reports as per HPI Psychiatric: Reports anxiety, Reports depression Hematologic/Lymphatic: Reports easy bleeding, Reports easy bruising Past Medical History Past Medical History: Asthma, CVA/TIA, GERD/Reflux, Hyperlipidemia, Hype rtension, Pneumonia, Thyroid Disorder Additional Past Medical History / Comment(s): freq stridor,tracheal malacia, steroid injection November 2022,HEADACHES, CHRONIC BACK AND NECK PAIN, STATES "THICKENING OF THE HEART", OCCASIONAL SWELLING LEFT LEG, STATES TIA FEBRUARY 2018 AND HAS WEAKNESS & DIZZINESS & CONFUSION SINCE TIA ., USING WALKER prn ., STOMACH ULCER, HIATAL HERNIA. 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 COLONOSCOPY. bronchoscopy Past Anesthesia/Blood Transfusion Reactions: No Reported Reaction Additional Past Anesthesia/Blood Transfusion Reaction / Comment(s): pt states layngeal palsy with difficulty swallowing after cervical surgery. maternal aunt and grandma difficulty waking after anesthesia Past Psychological History: Anxiety, Depression Smoking Status: Never smoker Past Alcohol Use History: None Reported Past Drug Use History: None Reported - Past Family History Father Family Medical History: Unable to Obtain Additional Family Medical History / Comment(s): schizoprenia Mother Family Medical History: COPD, CVA/TIA Medications and Allergies Home Medications Medication Instructions Recorded Confirmed Type Butalb/APAP/Caff 50-325-40Mg 1 tab PO BID PRN 04/23/18 05/29/23 History [Fioricet 50-325-40] Montelukast [Singulair] 10 mg PO HS 04/23/18 05/29/23 History Albuterol Sulfate [Albuterol 2 puff INHALATION RT-QID PRN 12/25/18 05/29/23 History Sulfate Hfa] Famotidine [Pepcid] 20 mg PO HS 01/31/20 05/29/23 History Levothyroxine Sodium [Synthroid] 50 mcg PO DAILY 01/31/20 05/29/23 History DULoxetine HCL [Cymbalta] 60 mg PO DAILY 09/20/20 05/29/23 History Omeprazole [PriLOSEC] 20 mg PO DAILY 03/26/21 05/29/23 History Apixaban [Eliquis] 5 mg PO BID 12/16/22 05/29/23 History clonazePAM [KlonoPIN] 0.5 mg PO BID PRN 12/16/22 05/29/23 History Atorvastatin [Lipitor] 10 mg PO HS 05/29/23 05/29/23 History Baclofen [Lioresal] 20 mg PO TID PRN 05/29/23 05/29/23 History Budesonide/Formoterol Fumarate 2 puff INHALATION RT-BID 05/29/23 05/29/23 History [Symbicort 160-4.5 Mcg Inhaler] Allergies Allergy/AdvReac Type Severity Reaction Status Date / Time No Known Allergies Allergy Verified 05/29/23 08:47 Physical Examination - Vital Signs Vital Signs: Vital Signs Temp Pulse Pulse Resp BP BP BP 05/29/23 10:23 97.9 F 88 18 112/75 120/64 05/29/23 09:47 98.2 F 98 18 142/78 05/29/23 06:31 87 16 147/78 05/29/23 06:00 81 16 151/88 05/29/23 03:00 89 16 132/87 05/29/23 02:01 97.6 F 82 16 140/72 BP Pulse Ox 05/29/23 10:23 128/76 94 L 05/29/23 09:47 93 L 05/29/23 06:31 95 05/29/23 06:00 95 05/29/23 03:00 97 05/29/23 02:01 96 Intake and Output 05/28/23 05/29/23 05/29/23 22:59 06:59 14:59 Other: Weight 95.254 kg 95.254 kg Patient is a late middle-aged female, very pleasant, in no acute distress. Patient is alert awake oriented to time place and person. Speech and language functions are normal. Patient can name and repeat very well. No aphasia or dysarthria. Attention, concentration and fund of knowledge is adequate. On cranial nerve examination, pupils are equal, round and reacting to light, visual perera are full on confrontation, with no neglect on double simultaneous stimulation. Extraocular muscles are intact with no nystagmus. Face is symmetric, tongue protrudes to the midline. Palatal elevation and sensation normal, hearing is at least moderately decreased for finger rubbing, left much worse than right. Her hearing is normal for routine conversation. Her shoulder shrug normal, facial sensation normal. On muscle strength testing, there is no pronator drift and the strength is normal in arms and legs distally and proximally. Deep tendon reflexes are symmetric 1+ in the upper limbs, 2 in the lower limbs and plantars are downgoing bilaterally. Sensory to touch is equal with no neglect on double simultaneous stimulation. Cerebellar function showed no ataxia for [id number] testing. No dysdiadochokinesia. No ataxia for [id number] testing on either side. Tone and bulk of muscles normal. Gait deferred.. On general examination, there is no carotid bruit or murmur, S1-S2 audible. Chest is clear on consultation. Abdomen is soft nontender. No organomegaly, bowel sounds present. Peripheral pulses are present. No peripheral edema. Results - Laboratory Findings CBC and BMP: 05/29/23 02:31 05/29/23 02:31 Abnormal Lab Findings: Abnormal Labs 05/29/23 02:31 Calcium 8.3 L Total Protein 5.6 L Albumin 3.4 L Assessment and Plan Assessment: * Syncopal spell, probably orthostatic or vasovagal. * Episodes of dizziness off and on since 2018, occurring almost every day lasting for half an hour or so. Exact cause is uncertain. Patient has tinnitus, some hearing loss, raising concern for possible Mnire's disease. * Recurrent falls, due to losing balance, unclear etiology, perhaps related to dizziness. * History of migraines * T11 compression fracture * Hypertension * Hyperlipidemia * History of possible "TIA", with some left-sided weakness in 2018. Her MRI of the brain was negative for stroke. * Back pain Plan: * Patient is undergoing cardiac workup to evaluate for the cause of syncope. * We will check carotid Doppler to rule out stenosis. * 2-D echo revealed normal left-ventricular size and systolic function, with EF 55-60%. Trace to mild MR. Left atrial size is mildly increased in volume. * EEG rule out any epileptiform activity. * Orthostatics were checked, which were negative. * May consider tilt table test. * Orthopedic consultation for T11 compression fracture. * Patient has recurrent falls. We will check B12, folate to rule out deficiency. * Regarding chronic dizziness with tinnitus, I would recommend patient follow up with ENT as outpatient to evaluate for possible Mnire's disease. * Neurology will follow. Thank you for the consult. Time with Patient: Greater than 30
[2023-05-30] MEDS: SYMBICORT 160-4.5 MCG INHALER INHALATION SCH ×2 (07:53→19:52)
--- NOTE | 2023-05-30 10:08 | P.PN ---
Subjective Progress Note Date: 05/30/23 History of present illness: This is a 62 year old female previously seen in the office with Dr. Sylvia Lee in 2019 prior to cervical spine fusion surgery. She has a past medical history of DVT right leg, hyperlipidemia, gastroesophageal reflux disease, TIAs, asthma, hypertension. We have been asked to evaluate the patient for syncope. Patient states that she woke up around 1:30 this morning was feeling hungry went to the kitchen to make herself a sandwich. The next thing she knew she was dizzy and woke up on the floor. Her grandson was present and thought she had lost conscious for a couple minutes. Patient denies having any one-sided weakness. She does have chronic left-sided weakness but denies any change, no loss of bowel or urine, no change in her speech. Patient states that she did have occasional chest pain or tightness in her chest and she has dyspnea on exertion which she thinks is related to asthma. She states she has difficulty doing her housework and has since stopped frequently because she feels weak or has dyspnea on exertion. She does have chronic back pain and neck pain. She is a nonsmoker. EKG sinus rhythm and no acute ST changes. Chest x-ray: Normal CAT scan of the brain no acute findings CAT scan of the cervical spine no acute fracture subluxation CBC, INR, electrolytes and renal function all normal. Magnesium 1.9 and potassium 4. Blood sugar 92. Liver function tests normal. Troponin negative 1. Home cardiac medications: Eliquis 5 mg twice daily, atorvastatin 10 mg at bedtime, levothyroxine 50 g daily. 05/30 Patient is seen today in follow-up on the observation unit. She denies having any chest pain today. She states she could not sleep last night. Patient is scheduled for dobutamine stress echocardiogram which was delayed from yesterday due to patient having breakfast. Patient is scheduled also for EEG and T12 kyphoplasty. Echocardiogram reveals normal left ventricular size and systolic function. Trace to mild mitral and mild tricuspid regurgitation. Physical examination: Gen: This is a 62-year-old female seen in the emergency center appears to be in no acute distress. VS: reviewed HEENT: Head is atraumatic, normocephalic. Pupils equal, round. Sclerae is anicteric. NECK: Supple. No JVD. . LUNGS: Clear to auscultation. No wheezes or rhonchi. No intercostal retractions. HEART: Regular rate and rhythm. No murmur. ABDOMEN: Soft No tenderness. EXTREMITIES: No pedal edema. No calf tenderness. NEUROLOGICAL: Patient is awake, alert and oriented x3. Assessment: Syncopal episode of unclear etiology Chest tightness, acute coronary syndrome ruled out Dyspnea on exertion T12 compression fracture, kyphoplasty scheduled 05/30 History of DVT right leg Hyperlipidemia Hypertension TIAs Gastroesophageal reflux disease Asthma Plan: Resume patient's home cardiac medications Obtain dobutamine stress echocardiogram today If stress test is unremarkable, patient is cleared for surgery from cardiology perspective and can be discharged once cleared by attending and consultants. Thank you kindly for this consultation. Nurse practitioner note has been reviewed, I agree with documented findings and plan of care. Patient was seen and examined. Objective - Vital Signs Vital signs: Vital Signs Temp 97.9 F 05/30/23 02:03 Pulse 67 05/30/23 02:03 Resp 15 05/30/23 02:03 BP 118/74 05/30/23 02:03 Pulse Ox 97 05/30/23 02:03 FiO2 Intake & Output 05/29/23 05/30/23 05/30/23 18:59 06:59 18:59 Intake Total 236 Balance 236 Weight 95.254 kg Intake: Oral 236 Other: # Voids 2 1 - Labs CBC & Chem 7: 05/29/23 02:31 05/29/23 02:31
[2023-05-30] MEDS: PANTOPRAZOLE 40 MG/10 ML VIAL IVP SCH (10:25)
[2023-05-30] MEDS: traMADol 50 MG TAB PO SCH ×3 (10:25→18:59)
[2023-05-30] MEDS: DULoxetine HCL 60 MG CAPSULE.DR PO SCH (10:25)
[2023-05-30] MEDS: LIDOCAINE 5% PATCH TOPICAL SCH (10:26)
--- NOTE | 2023-05-30 12:13 | P.PN ---
Subjective Progress Note Date: 05/30/23 05/30/2023 dobutamine echo rescheduled for today. Echo reported normal LV function, EF 55-60%.Denies chest pain, palpitations or shortness of breath. Complains of back pain, did not sleep well. Radiology studies of back reporting acute T11 vertebral compression fracture as per orthopedic surgery review. Scheduled for kyphoplasty. Afebrile. Evaluated by neurology, EEG pending. Objective - Vital Signs Vital signs: Vital Signs Temp 98.5 F 05/30/23 07:00 Pulse 95 05/30/23 07:00 Resp 14 05/30/23 07:00 BP 133/83 05/30/23 07:00 Pulse Ox 96 05/30/23 07:00 FiO2 Intake & Output 05/29/23 05/30/23 05/30/23 18:59 06:59 18:59 Intake Total 236 Balance 236 Weight 95.254 kg Intake: Oral 236 Other: # Voids 2 1 - Exam PHYSICAL EXAM: VITAL SIGNS: [As above] GENERAL: Alert and oriented 3, Lying in bed, no acute distress HEENT: Normocephalic, Conjunctivae normal. eyes normal. NECK: Supple, No JVD. CARDIOVASCULAR: S1, S2 regular.No murmur RESPIRATION: Unlabored, Equal air entry, CTA. ABDOMEN: Soft, nontender . No guarding. no masses palpable. +BS. LEGS: No edema. no swelling. No calf tenderness, no cyanosis NERVOUS SYSTEM: Cranial N 2-12 grossly normal. No focal deficits. Strength and sensation grossly intact. Skin: Warm and dry, no rash - Labs CBC & Chem 7: 05/29/23 02:31 05/29/23 02:31 Assessment and Plan Assessment: Syncope, etiology unclear. Chest tightness across chest, cardiology following New-onset back pain secondary to fall ,Acute T11 vertebral compression fracture, kyphoplasty pending Chronic asthma, stable Gastroesophageal reflux disease History of TIAs Hypertension Hyperlipidemia History of migraines History of right leg DVT Plan: Continue on current medication regime ,monitoring and symptomatic treatment. Dobutamine echo pending. Kyphoplasty pending dobutamine stress results. Neuro workup in progress/EEG pending. Pain management/DVT prophylaxis. Aggressive pulmonary toileting with incentive spirometer ordered. Prognosis guarded given multiple complex medical issues. The impression and plan of care has been dictated as directed. : I performed a history and examination of this patient, discussed the same with the dictator. I agree with the dictator's note ,documented as a scribe. Any additional findings or plans will be noted.
--- NOTE | 2023-05-30 12:28 | CA ---
Dobutamine Stress Echocardiogram Report Luzmaria Nobles Age: 62 Gender: F : 1960 Exam Date: 05/30/2023 09:33 Exam Location: [facility] Ordering Physician: Zaria García Referring Physician: Sarina Clements TROY Shelter Monitor: Blaine Givens Technologist: Kathy Muller RDCS Ht (in): 68 Wt (lb): 210 Procedure CPT: Indication: CP ICD-9 Codes: Rhythm: Patient History: Cardiac Medications: SEE CHART Medications in past 24 hours: Contrast: Definity Total Dose (mL): 2 Stress Results Protocol: Dobutamine Peak Dose (???g/kg/min): 20 Duration (min:sec): Atropine:(mg) None Target HR: 134 Double Product: 15710 Resting HR: 123 Resting BP: 162 / 103 Peak HR: 154 Peak BP: 184 / 84 Max Predicted HR: 158 97 % Max Predicted HR Stress Summary: The hemodynamic response to stress was normal. BP Response: Reason for Termination: Exceeded target heart rate (85% max predicted) Cardiac Symptoms: NO SYMPTOMS ECG Analysis Resting EKG: Normal sinus rhythm, normal ECG Stress EKG: No abnormal ST/T wave changes with exercise Arrhythmia: None Echo Analysis Base Echo Analysis: Normal resting echocardiogram. Low Echo Anaylsis: No segmental wall motion abnormality Peak Echo Analysis: Normal wall thickening and motion with decrease in left ventricular cavity Recovery Echo: Normal systolic function MEASUREMENTS (Male/Female) Normal Values CONCLUSIONS 1. Normal electrocardiographic response to dobutamine infusion 2. Normal dobutamine stress echocardiogram with no evidence of stress induced ischemia Dr. Shi Shields MD (Electronically Signed) Final Date: 30 May 2023 12:27
--- NOTE | 2023-05-30 13:51 | P.PN ---
Subjective Progress Note Date: 05/30/23 Principal diagnosis: T11 vertebral compression fracture Patient was seen at bedside this morning lines are, position with family present during encounter. Patient says she would like to proceed with surgery tomorrow for T11 kyphoplasty. Patient denies any changes since yesterday. Patient does mention she is having some left shoulder pain, which has been an ongoing issue for her. Patient denies any other issues and signed. Patient denies chest pain, fever, nausea, vomiting, change in vision, loss of bowel/bladder control. Objective - Vital Signs Vital signs: Vital Signs Temp 98.5 F 05/30/23 07:00 Pulse 95 05/30/23 07:00 Resp 14 05/30/23 07:00 BP 133/83 05/30/23 07:00 Pulse Ox 96 05/30/23 07:00 FiO2 Intake & Output 05/29/23 05/30/23 05/30/23 18:59 06:59 18:59 Intake Total 236 Balance 236 Weight 95.254 kg Intake: Oral 236 Other: # Voids 2 1 - Exam Inspection: Negative for any open fractures, significant erythema/ecchymosis/open wounds. Sensation: Equal, symmetric, bilaterally intact throughout the upper and lower extremities on exam. Palpation: Moderate tenderness to patient that midline in the lower thoracic spine. Nontender to palpation throughout rest exam. Range of motion: Patient has full range of motion throughout the bilateral upper and lower extremities on exam. Motor: 4/5 in all major motor groups in bilateral upper and lower extremities. Neurovascular: Radial pulse intact, 2+. Cap refill under 3 seconds in digits of the upper extremities. Special tests: Negative Homans bilaterally. Negative clonus bilaterally. - Labs CBC & Chem 7: 05/29/23 02:31 05/29/23 02:31 Labs: Abnormal Lab Results - Last 24 Hours (Table) 05/29/23 Range/Units 02:31 Vitamin B12 189.0 L (200.0-944.0) pg/mL Assessment and Plan Assessment: 1. T11 vertebral compression fracture, acute Plan: 1. T11 vertebral compression fracture, acute - patient examined at bedside this afternoon. Patient does have pinpoint tenderness over the lower thoracic spine and midline. Thoracic and lumbar x-rays reviewed. There is a vertebral fatou shahab fracture at T11. Does appear to be acute in nature. Computed tomography scan of the cervical spine does demonstrate previous C4 to C5 anterior cervical decompression and fusion. I did discuss the findings of the exam with my attending, Dr. Farah. At this time we are recommending surgical intervention in the form of T11 kyphoplasty. Patient would like to move forward with surgical intervention in the form of T11 kyphoplasty for vertebral compression fracture. Surgery has been scheduled for tomorrow, 05/31/2023 - T11 kyphoplasty. Patient to be nothing by mouth beginning tonight at midnight. At this time we recommend continued management with pain medication. Patient may benefit from a TLSO brace as well due to the injury. Script for TLSO brace placed in chart. cost manager contacted. Patient may weight-bear as tolerated with walker and brace on while up and about. With hold blood thinners at this time. We will continue to follow patient during her stay in hospital. 2. Appreciate medical and cardiac management 3. Pain management - tramadol; Tylenol 4. GI prophylaxis - Protonix 5. DVT prophylaxis - with hold blood thinners at this time. 6. PT/OT - TLSO brace on while up and about. Weightbearing as tolerated with walker as needed 7. Encourage incentive spirometer use Time with Patient: Less than 30
--- NOTE | 2023-05-30 14:45 | CT ---
EXAMINATION TYPE: CT thoracic spine wo con DATE OF EXAM: 05/30/2023 COMPARISON: None HISTORY: 62-year-old female thoracic fracture at T11, Thoracic fracture. Pt states T11 TECHNIQUE: Contiguous axial scanning of the thoracic spine without IV contrast. Coronal and sagittal reconstructions performed. CT DLP: 1361 mGycm Automated exposure control for dose reduction was used. FINDINGS: There is a mild inferior endplate fracture of T11 resulting in minimal anterior wedging with a 10% an terior height loss. No retropulsion into the ventral spinal canal. Only minimal paravertebral soft ti ssue swelling is present here. The fracture is characterized by a band of sclerosis. Remaining vertebral body heights are preserved and alignment is maintained. ACDF partially visualized, extending down to the C6 level. No evident canal compromise by CT. Scattered mild facet arthropathy upper and lower thoracic spine, particularly on the right in the low er thoracic spine. Changes result in mild bony neuroforaminal narrowing at T9-T10. * Ectatic ascending aorta 3.8 cm. * Heart borderline to mildly enlarged. * Small hiatal hernia. * Visualized upper abdomen shows partial visualization of a probable 3.2 cm medial right renal cyst. * 3 mm nonobstructive left renal stone. IMPRESSION: 1. MILD INFERIOR ENDPLATE FRACTURE DEFORMITY OF T11. THIS RESULTS IN SLIGHT 10% ANTERIOR HEIGHT LOSS. NO RETROPULSION INTO THE SPINAL CANAL. GIVEN THE MINIMAL PARAVERTEBRAL SOFT TISSUE SWELLING, SUSPECT A MORE SUBACUTE INJURY. CLINICALLY CORRELATE. 2. SCATTERED MILD FACET ARTHROPATHY. CHANGES RESULT IN MILD RIGHT-SIDED NEURAL FORAMINAL NARROWING AT T9-T10.
[2023-05-30] MEDS ORDERED: ALBUTEROL NEBULIZED 2.5 MG/3 ML INHALATION PRN (15:01)
[2023-05-30] MEDS: MULTIVITAMINS, THERA 1 EACH TAB PO SCH (15:22)
[2023-05-30] MEDS: CYANOCOBALAMIN 500 MCG TAB PO SCH (15:22)
[2023-05-30] MEDS: FOLIC ACID 1 MG TAB PO SCH (15:22)
[2023-05-30] MEDS: ALBUTEROL NEBULIZED 2.5 MG/3 ML INHALATION SCH ×2 (15:48→19:52)
[2023-05-30] MEDS: CALCIUM CARB-VIT D 500 MG-5 MCG TAB PO SCH (16:43)
[2023-05-30] MEDS: CYANOCOBALAMIN 1,000 MCG/ML 1 ML VIAL IM SCH (18:53)
--- NOTE | 2023-05-30 19:47 | EEG ---
ELECTROENCEPHALOGRAM REPORT PREAMBLE: This is a 62-year-old female with syncope and chronic recurrent dizziness. EEG FINDINGS: This is a 21-channel digital EEG recorded with video component, utilizing 10/20 International System with referential and bipolar montages. Background consists of well-developed, well-regulated, moderate-voltage activity in 8 to 9 Hz alpha, intermixed with some fast frequency beta and some theta activity in bihemispheric region. Background seems to be reactive to eye opening and closing. Photic driving response was not seen. Drowsiness was seen with presence of bilaterally symmetric theta frequency rhythm. Deeper stages of sleep were not seen. No focal or generalized epileptiform activity was seen. EKG channel showed no obvious arrhythmia. IMPRESSION: This is a normal awake and drowsy EEG. No focal, lateralized, or epileptiform activity was seen. MMODL / IJN: [id number] /
[2023-05-30] MEDS: MONTELUKAST 10 MG TAB PO SCH (20:47)
[2023-05-30] MEDS: ATORVASTATIN 10 MG TAB PO SCH (20:47)
[2023-05-30] MEDS: clonazePAM 0.5 MG TAB PO SCH (20:48)
[2023-05-31] MEDS: traMADol 50 MG TAB PO SCH ×5 (01:27→22:08)
--- NOTE | 2023-05-31 02:03 | P.PN ---
Subjective Progress Note Date: 05/30/23 Patient was seen for a follow-up. Patient denies any new neurological symptoms. Objective - Vital Signs Vital signs: Vital Signs Temp 97.7 F 05/30/23 18:17 Pulse 102 H 05/30/23 18:17 Resp 15 05/30/23 18:17 BP 110/71 05/30/23 18:17 Pulse Ox 93 L 05/30/23 18:17 FiO2 Intake & Output 05/29/23 05/30/23 05/30/23 18:59 06:59 18:59 Intake Total 236 118 Balance 236 118 Weight 95.254 kg Intake: Oral 236 118 Other: # Voids 2 1 2 - Exam Patient's mental status, speech and language functions are normal. Examination remains unchanged. - Labs CBC & Chem 7: 05/29/23 02:31 05/29/23 02:31 Labs: Abnormal Lab Results - Last 24 Hours (Table) 05/29/23 Range/Units 02:31 Vitamin B12 189.0 L (200.0-944.0) pg/mL Assessment and Plan Assessment: * Syncopal spell, probably orthostatic or vasovagal. * Episodes of dizziness off and on since 2018, occurring almost every day lasting for half an hour or so. Exact cause is uncertain. Patient has tinnitus, some hearing loss, raising concern for possible Mnire's disease. * Recurrent falls, due to losing balance, unclear etiology, perhaps related to dizziness. * History of migraines * B12 deficiency * Folate deficiency * T11 compression fracture * Hypertension * Hyperlipidemia * History of possible "TIA", with some left-sided weakness in 2018. Her MRI of the brain was negative for stroke. * Back pain Plan: * Patient is undergoing cardiac workup to evaluate for the cause of syncope. * Carotid Doppler revealed less than 50% stenosis of the bilateral carotid bifurcations. Antegrade flow in both vertebral arteries. * 2-D echo revealed normal left-ventricular size and systolic function, with EF 55-60%. Trace to mild MR. Left atrial size is mildly increased in volume. * EEG was normal awake and drowsy. No focal, lateralized or epileptiform activi ty was seen. * Orthostatics were checked, which were negative. * May consider tilt table test. * Orthopedic consultation for T11 compression fracture. Patient undergoing kyphoplasty in the morning. * Patient has recurrent falls. B12 189 which is very low. Folic acid 4.50. Patient will be started on B12 and folate replacement. * Regarding chronic dizziness with tinnitus, I would recommend patient follow up with ENT as outpatient to evaluate for possible Mnire's disease. * Neurologically clear otherwise. Dr. Templeton will be available for neurology concerns over the weekend. Dr. Alexander Hogan will start neurology service from Friday.
[2023-05-31] MEDS: LEVOTHYROXINE 50 MCG TAB PO SCH (06:31)
[2023-05-31] MEDS: CALCIUM CARB-VIT D 500 MG-5 MCG TAB PO SCH ×2 (06:31→16:51)
[2023-05-31] MEDS: SODIUM CHLORIDE 0.9% 1,000 ML IV SCH (06:48)
[2023-05-31] MEDS: ALBUTEROL NEBULIZED 2.5 MG/3 ML INHALATION SCH ×4 (07:29→19:42)
[2023-05-31] MEDS: SYMBICORT 160-4.5 MCG INHALER INHALATION SCH ×2 (07:29→19:42)
[2023-05-31] MEDS ORDERED: GLYCOPYRROLATE 0.2 MG/ML 2 ML VIAL ONE (08:03)
[2023-05-31] MEDS ORDERED: ROCURONIUM 10 MG/ML (5 ML VIAL) IV ONE (08:03)
[2023-05-31] MEDS ORDERED: LACTATED RINGERS 1,000 ML IV ONE ×2 (08:03→09:09)
[2023-05-31] MEDS ORDERED: PROPOFOL 10 MG/ML 20 ML VIAL IV ONE (08:03)
[2023-05-31] MEDS ORDERED: LIDOCAINE 1% INJ 10MG/ML (20 ML MDV) ONE (08:03)
[2023-05-31] MEDS ORDERED: SUCCINYLCHOLINE CHLORIDE 200 MG/10 ML VIAL IV ONE (08:03)
[2023-05-31] MEDS ORDERED: DEXAMETHASONE SOD PHOSPHATE 4 MG/ML 1 ML VIAL ONE (08:03)
[2023-05-31] MEDS ORDERED: fentaNYL (PF) 50 MCG/ML 2 ML AMP ONE (08:03)
[2023-05-31] MEDS ORDERED: ONDANSETRON 4 MG/2 ML VIAL ONE (08:03)
[2023-05-31] MEDS ORDERED: NEOSTIGMINE 1 MG/ML 10 ML VIAL ONE (08:03)
[2023-05-31] MEDS ORDERED: diphenhydrAMINE 50 MG/ML 1 ML VIAL ONE (08:03)
[2023-05-31] MEDS ORDERED: MIDAZOLAM 2 MG/2 ML VIAL ONE (08:03)
[2023-05-31] MEDS ORDERED: HYDROmorphone (PF) 1 MG/ML ONE (08:03)
[2023-05-31] MEDS ORDERED: SODIUM CHLORIDE 0.9% 50 ML with ceFAZolin 2,000 MG IV ONE ×2 (08:03)
--- NOTE | 2023-05-31 08:03 | P.PN ---
Progress Note - Text Progress Note Date: 05/31/23 Pt s/e in Pre Op area. Spine Surgery Clinical and Risk Review Luzmaria Nobles is a 62 yo female presenting for evaluation of back pain after syncope and falling at home. It was my pleasure to have seen and examined Luzmaria Nobles. In our visit today we have had a chance to go over subjective complaints, physic al examination findings and treatments including the natural course history without intervention and various interventional options. The patients imaging demonstrates Fracture of T11, AOB2 with OF component. On physical exam, Luzmaria Nobles demonstrates TTP of the mid and low back, inability to ambulate due to pain. I have explained to the patient that as their condition progresses it will cause further neurological deficits and eventual paralysis. Based on the patients imaging, physical exam, and the rapid progression and disabling nature of their symptoms, at this time I recommend surgery in the form or a: T11 stabilization and kyphoplasty. I discussed the risk and benefits of this procedure at length with Luzmaria Nobles. The patient and family at bedside agreed to considered pursuing the procedure abovementioned. Prior to surgery, she should follow up with her PCP (Cardio, ID, IM etc) for clearance. Questions were invited and answered, and the patient wishes to proceed as outlined below. Currently, I am recommendin. T11 stabilization and kyphoplasty 2. Follow up with PCP for surgical clearance 3. Review of surgical risks and benefits as well as an educational packet on the proposed surgical procedure. Risks: All surgical procedures come with inherent risks, including those related to positioning, anesthesia, intraoperative findings, and postoperative complications. It is important to understand that surgery does not come with any guarantee of a successful outcome as complications and adverse events are always possible. The patient was given a handout in office today discussing the surgical procedure and risks associated with the intervention, both of which were discussed with the patient. These risks include but are not limited to the following: * Experiencing same, different or even worse symptoms in back, neck, arms, or legs compared to before surgery. * Requiring further surgery or other forms of treatment presently or at some time in the future at same or other levels of the intended spine surgery. * On an extreme but fortunately relatively rare basis severe complication such as blindness, stroke, heart attack, temporary and/or permanent nerve injury, paralysis, coma, or may occur, sometimes without known explanation. * Surgical complications may include but are not limited to risk of infection, fluid accumulation in the surgical dissection site, including a seroma or hematoma, that requires additional surgery, wound drainage, bleeding, new numbness or weakness, vision changes/loss, spinal fluid leakage, non-healing and/or infected incision, headaches, difficulty or inability to swallow, hoarseness, hemopneumothorax, pneumothorax, impotence, retrograde ejaculation, vaginal dryness; injury to nerves, spinal cord, blood vessels, lymphatics or other vital organs (i.e., bowel injury, injury to the great ve ssels); heterotopic bone formation; complications related to the hardware such as screws, rods, cages including misplaced hardware, device failure, instrumentation at the wrong spine level, hardware fracture/breakage, or hardware loosening; vertebral failure of the spinal column above or below the newly placed hardware; retained surgical instrumentations or devices and the need for further surgery. * Medical risks of the planned spine surgery include but are not limited to generalized Infections to the whole body or local areas outside of the surgical site (sepsis), heart attack, bleeding, anaphylaxis, meningitis, seizure, epilepsy, hearing loss, burn hicks, laceration of the head or other areas of the body, bruising, hypersensitivity of the skin, bladder over distension; allergic reaction; shoulder injury related to positioning; fat, blood and air clots to other areas of the body like heart, lungs, brain; failure of internal organs such as lungs, kidneys, liver and excessive bleeding. If blood transfusions are necessary, note that transfusions may cause intolerance reactions such as anaphylaxis or other complex reactions. * Despite best efforts, the results of spine surgery might not heal in terms of bone, soft tissues such as skin, fascia, ligaments, and joints. Additionally, in order to achieve best possible results, spine surgery may be carried out beyond the initially planned levels and involve decompression, fusion including insertion of hardware at levels other than the original intended area of surgical interest change some portions of the procedure in order to ensure the best possible outcomes. * With spine surgery and spinal fusion, there are different off label uses of instrumentation (devices, implants and hardware) as well as biological substances (bone morphogenic proteins, demineralized bone matrix) as well as using extra bone from allograft sources (i.e. cadaver bone) or autograft (iliac crest bone, ribs, or the spine itself). The patient has been given information about these practices and their inherent risks and benefits. The patient has had a chance to review all the listed information, has been given print outs detailing this information, and has had all his/her questions answered to their satisfaction. It was my pleasure to have seen and examined Luzmaria Nobles. In our visit today we have had a chance to go over my understanding of our patient's current condition, the natural course history without intervention and various interventional options. Questions were invited and answered, and the patient wishes to proceed as outlined above. I have seen and examined the patient for 25 minutes and we have spent more than 50% of the time in repeat and detailed counseling about the patient's condition, its natural course history with out and as much as can be predicted with surgery and re-review of various surgical treatment options. In conclusion, Luzmaria Nobles and family at bedside requested we proceed with the above suggested surgery and are willing to accept risks and limitations of the suggested surgery as nature of the disease process and our best attempts at treatment for the condition. Thank you again for allowing us to be part of your patient's care. Please don't hesitate to contact me if you have any further questions. Signed and authenticated by: Ady [facility] [address] [facility] [place] [address]
[2023-05-31] MEDS ORDERED: LIDOCAINE 2%-EPI 1:100,000 20 ML VIAL SQ ONE ×2 (08:32→09:07)
[2023-05-31] MEDS ORDERED: BUPIVACAINE (PF) 0.5% 30 ML VIAL SQ ONE ×2 (08:32→09:07)
[2023-05-31] MEDS ORDERED: IOPAMIDOL M200 10 ML VIAL MISCELLANE ONE (08:33)
[2023-05-31] MEDS ORDERED: MINERAL OIL 1 APPLIC/ML OIL MISCELLANE ONE (08:33)
[2023-05-31] MEDS ORDERED: CYCLOBENZAPRINE 5 MG TAB PO PRN (09:57)
[2023-05-31] MEDS ORDERED: SENNOSIDES-DOCUSATE SODIUM 1 EACH TAB PO PRN (09:57)
[2023-05-31] MEDS ORDERED: MAGNESIUM HYDROXIDE 2,400 MG/30 ML CUP PO PRN (09:57)
[2023-05-31] MEDS: LIDOCAINE 5% PATCH TOPICAL SCH (10:18)
--- NOTE | 2023-05-31 10:56 | XR ---
Intraoperative/procedural fluoroscopic services were provided. Total fluoroscopy time is 1 minute 30 seconds with a total of 8 submitted images to PACS. Please see the operative/procedural note for furt her details. DAP: 8.2762 Gycm2
--- NOTE | 2023-05-31 13:33 | P.PN ---
Subjective 05/31/2023: Patient is here for syncopal episode and T11 vertebral compression fracture. She had a kyphoplasty this morning. Family came in this morning stating that she's been taking medications inappropriately and not as prescribed. She's also been taking medications that are not hers. They believe this is leading to her falling. His medications include baclofen and Klonopin and Compazine. She is also taking Seroquel. I discussed this with the patient and she admits to taking occasionally extra medication. She denies any chest pains pressures or shortness of breath. Has had significant asthma and some chest heaviness is chronic. Her back pain is better. She is medicated though. She denies any nausea and vomiting currently. Objective - Vital Signs Vital signs: Vital Signs Temp 98.5 F 05/31/23 10:20 Pulse 102 H 05/31/23 11:50 Resp 12 05/31/23 11:50 BP 116/79 05/31/23 11:50 Pulse Ox 91 L 05/31/23 11:50 FiO2 Intake & Output 05/30/23 05/31/23 05/31/23 18:59 06:59 18:59 Intake Total 118 1350 Output Total 75 Balance 118 1275 Intake: IV 1350 Oral 118 Output: Estimated Blood Loss 75 Other: # Voids 2 2 1 - Exam General: The patient is awake and alert, lying flat due to recent surgery. She indicates she has now undergone the Neck: The neck is supple, there is no thyromegaly, lymphadenopathy, tenderness or JVD. Cardiovascular: S1S2 is normal, There is a regular rate and rhythm. No murmur, rub or gallop is appreciated. Respiratory: Lungs are clear to auscultation bilaterally, respirations are non-labored, breath sounds are equal. Gastrointestinal: Soft, non-distended, non-tender abdomen without masses or organomegaly noted. There is no rebound or guarding present. Bowel sounds are unremarkable. Musculoskeletal: Deferred at this time. Neurological: CN II-XII intact, there are no obvious motor or sensory deficits. Coordination appears grossly intact. Speech is normal. Skin: Skin is warm and dry and no rashes or lesions are noted. - Labs CBC & Chem 7: 05/29/23 02:31 05/29/23 02:31 Assessment and Plan (1) Syncope Current Visit: Yes Status: Acute Code(s): R55 - SYNCOPE AND COLLAPSE SNOMED Code(s): 958159855 (2) Back pain Current Visit: Yes Status: Acute Code(s): M54.9 - DORSALGIA, UNSPECIFIED SNOMED Code(s): 094173697 (3) Fall Current Visit: Yes Status: Acute Code(s): W19.XXXA - UNSPECIFIED FALL, INITIAL ENCOUNTER SNOMED Code(s): 2695338 (4) medical terminologist (current) use of anticoagulants Current Visit: Yes Status: Acute Code(s): Z79.01 - SNF (CURRENT) USE OF ANTICOAGULANTS SNOMED Code(s): 060373313 (5) Essential (primary) hypertension Current Visit: Yes Status: Acute Code(s): I10 - ESSENTIAL (PRIMARY) HYPERTENSION SNOMED Code(s): 68765592 (6) Mixed hyperlipidemia Current Visit: Yes Status: Acute Code(s): E78.2 - MIXED HYPERLIPIDEMIA SNOMED Code(s): 414131056 (7) Asthma Current Visit: No Status: Acute Code(s): J45.909 - UNSPECIFIED ASTHMA, UNCOMPLICATED SNOMED Code(s): 356761489 (8) Migraine Current Visit: No Status: Acute Code(s): G43.909 - MIGRAINE, UNSP, NOT INTRACTABLE, WITHOUT STATUS MIGRAINOSUS SNOMED Code(s): 00778361 (9) Weakness Current Visit: No Status: Acute Code(s): R53.1 - WEAKNESS SNOMED Code(s): 79815328 (10) Misuse of medication Current Visit: Yes Status: Acute Code(s): F19.90 - OTHER PSYCHOACTIVE SUBSTANCE USE, UNSPECIFIED, UNCOMPLICATED SNOMED Code(s): 057734694 Plan: Is status post kyphoplasty this morning. We'll treat see how she does this af ternoon but expect discharge. We'll ask social service worker to give her some resources regarding substance abuse. Most likely she does not meet inpatient criteria here. She would need a outpatient rehabilitation facility or other type facility. Medically she is stable and improved.
[2023-05-31] MEDS: CYANOCOBALAMIN 500 MCG TAB PO SCH (13:53)
[2023-05-31] MEDS: PANTOPRAZOLE 40 MG/10 ML VIAL IVP SCH (13:54)
[2023-05-31] MEDS: MULTIVITAMINS, THERA 1 EACH TAB PO SCH (13:54)
[2023-05-31] MEDS: FOLIC ACID 1 MG TAB PO SCH (13:54)
[2023-05-31] MEDS: DULoxetine HCL 60 MG CAPSULE.DR PO SCH (13:54)
[2023-05-31] MEDS: CYANOCOBALAMIN 1,000 MCG/ML 1 ML VIAL IM SCH (13:54)
[2023-05-31] MEDS: HYDROmorphone 0.5 MG/0.5 ML SYRINGE IVP PRN ×2 (14:28→22:05)
[2023-05-31] MEDS: ONDANSETRON 4 MG/2 ML VIAL IVP PRN (16:50)
[2023-05-31] MEDS ORDERED: ONDANSETRON 4 MG/2 ML VIAL IVP STA (20:48)
[2023-05-31] MEDS: ATORVASTATIN 10 MG TAB PO SCH (22:08)
[2023-05-31] MEDS: clonazePAM 0.5 MG TAB PO SCH (22:08)
[2023-05-31] MEDS: MONTELUKAST 10 MG TAB PO SCH (22:08)
[2023-06-01] MEDS: HYDROmorphone 0.5 MG/0.5 ML SYRINGE IVP PRN (01:21)
[2023-06-01] MEDS: ONDANSETRON 4 MG/2 ML VIAL IVP PRN (01:21)
[2023-06-01 04:48] LABS: Basophils % (A) 0 %; Eosinophils # (A) 0.1 k/uL (0-0.7); Eosinophils % (A) 1 %; HCT 36.9 % (34.0-46.0); HGB 12.4 gm/dL (11.4-16.0); Lymphocytes # (A) 0.6 k/uL (1.0-4.8); Lymphocytes % (A) 6 %; MCH 32.2 pg (25.0-35.0); MCHC 33.6 g/dL (31.0-37.0); MCV 95.8 fL (80.0-100.0); Monocytes # (A) 0.4 k/uL (0-1.0); Monocytes % (A) 4 %; Neutrophils # (A) 8.7 k/uL (1.3-7.7); Neutrophils % (A) 88 %; Platelet Count 127 k/uL (150-450); RBC 3.85 m/uL (3.80-5.40); RDW 13.1 % (11.5-15.5); WBC 9.8 k/uL (3.8-10.6)
[2023-06-01] MEDS: LEVOTHYROXINE 50 MCG TAB PO SCH (06:30)
[2023-06-01] MEDS: SODIUM CHLORIDE 0.9% 1,000 ML IV SCH (06:30)
[2023-06-01] MEDS: CALCIUM CARB-VIT D 500 MG-5 MCG TAB PO SCH ×2 (06:30→18:14)
[2023-06-01] MEDS ORDERED: PROCHLORPERAZINE INJ 10 MG/2 ML VIAL IVP PRN (07:50)
--- NOTE | 2023-06-01 08:21 | P.PN ---
Subjective Progress Note Date: 06/01/23 Principal diagnosis: T11 vertebral compression fracture Patient was seen at bedside this morning lying semirecumbent position. Dressings are in place over spine. Patient says she is having moderate amount of pain mostly in the mid to low back. Patient says she is looking forward to working with therapy later today. Patient notes that some the medications have made her feel nauseous. Patient says she has not had a bowel movement yet, but she says she has been passing gas. Patient denies chest pain, fever, shortness of breath, loss of bowel/bladder control. Objective - Vital Signs Vital signs: Vital Signs Temp 98.5 F 06/01/23 01:46 EDT Pulse 109 H 06/01/23 01:46 EDT Resp 16 06/01/23 01:46 EDT BP 147/83 06/01/23 01:56 EDT Pulse Ox 93 L 06/01/23 01:46 EDT FiO2 Intake & Output 05/31/23 06/01/23 06/01/23 19:59 06:59 18:59 Intake Total Output Total Balance Intake: IV Oral Output: Estimated Blood Loss Other: # Voids - Exam Inspection: Negative for any open fractures, significant erythema/ecchymosis/open wounds. Dressings on thoracic/lumbar spine appear to be clean, dry, intact. Negative for any active drainage. Laney are well aligned and intact. Sensation: Equal, symmetric, bilaterally intact throughout the upper and lower extremities on exam. Palpation: Moderate tenderness to patient that midline in the lower thoracic spine. Nontender to palpation throughout rest exam. Range of motion: Patient has full range of motion throughout the bilateral upper and lower extremities on exam. Motor: 4/5 in all major motor groups in bilateral upper and lower extremities. Neurovascular: Radial pulse intact, 2+. Cap refill under 3 seconds in digits of the upper extremities. Special tests: Negative Homans bilaterally. Negative clonus bilaterally. - Labs CBC & Chem 7: 06/01/23 04:15 05/29/23 02:31 Labs: Abnormal Lab Results - Last 24 Hours (Table) 06/01/23 Range/Units 04:15 Plt Count 127 L (150-450) k/uL Neutrophils # 8.7 H (1.3-7.7) k/uL Lymphocytes # 0.6 L (1.0-4.8) k/uL Assessment and Plan Assessment: 1. T11 vertebral compression fracture, acute - Postop day 1 status post T11 stabilization with kyphoplasty Plan: 1. T11 vertebral compression fracture, acute - surgery was performed yesterday, 05/31/2023T11 stabilization with kyphoplasty. Patient stable at bedside this morning. Dressings appear to be clean, dry, intact. TLSO brace at bedside. Patient to wear TLSO brace when up and about. Plan to work with therapy. Okay to resume blood thinners from ortho standpoint. Blood thinners per medicine. Pain medications as needed. Patient is stable for orthopedic standpoint for discharge home. At this time orthopedics is signing off. Please do not hesitate to contact us for any further questions. Patient to follow-up with Dr. Farah in office in 2 weeks. 2. Appreciate medical and cardiac management 3. Pain management - Tylenol; gabapentin; Flexeril 4. GI prophylaxis - Protonix 5. DVT prophylaxis - mechanical; resume blood thinners per medicine 6. PT/OT - TLSO brace on while up and about. Weightbearing as tolerated with walker as needed 7. Encourage incentive spirometer use Time with Patient: Less than 30
[2023-06-01] MEDS: GABAPENTIN 300 MG CAP PO SCH ×3 (09:12→23:12)
[2023-06-01] MEDS: CYANOCOBALAMIN 500 MCG TAB PO SCH (09:12)
[2023-06-01] MEDS: DULoxetine HCL 60 MG CAPSULE.DR PO SCH (09:12)
[2023-06-01] MEDS: CYANOCOBALAMIN 1,000 MCG/ML 1 ML VIAL IM SCH (09:12)
[2023-06-01] MEDS: FOLIC ACID 1 MG TAB PO SCH (09:13)
[2023-06-01] MEDS: traMADol 50 MG TAB PO SCH ×4 (09:13→20:18)
[2023-06-01] MEDS: MULTIVITAMINS, THERA 1 EACH TAB PO SCH (09:13)
[2023-06-01] MEDS: LIDOCAINE 5% PATCH TOPICAL SCH (09:13)
[2023-06-01] MEDS: PANTOPRAZOLE 40 MG/10 ML VIAL IVP SCH (09:14)
[2023-06-01] MEDS: ALBUTEROL NEBULIZED 2.5 MG/3 ML INHALATION SCH ×4 (09:31→20:24)
[2023-06-01] MEDS: SYMBICORT 160-4.5 MCG INHALER INHALATION SCH ×2 (09:31→19:50)
[2023-06-01] MEDS: APIXABAN 5 MG TAB PO SCH ×2 (11:41→20:18)
--- NOTE | 2023-06-01 13:06 | P.PN ---
Subjective 05/31/2023: Patient is here for syncopal episode and T11 vertebral compression fracture. She had a kyphoplasty this morning. Family came in this morning stating that she's been taking medications inappropriately and not as prescribed. She's also been taking medications that are not hers. They believe this is leading to her falling. His medications include baclofen and Klonopin and Compazine. She is also taking Seroquel. I discussed this with the patient and she admits to taking occasionally extra medication. She denies any chest pains pressures or shortness of breath. Has had significant asthma and some chest heaviness is chronic. Her back pain is better. She is medicated though. She denies any nausea and vomiting currently. 06/01/2023: Overnight patient's care was complicated by ongoing nausea. She received Zofran multiple times. Compazine was added to her medication regimen. She is minimally better today. She is moving better than she was this morning. The plan was originally for her to go home today. Does not really take in much pain medications past 12 hours. She does complain of ongoing low back pain at the site of her kyphoplasty postoperative day #1. She denies any chest pains pressures or shortness of breath this time. Has not had a stool recently. She has senna ordered. She remains on singular, albuterol and Symbicort for asthma. She remains on eliquis for DVT hx, lipitor for hyperlipidemia, levothyroxine for hypothyroidism. Her family is requesting possible ECF. Objective - Vital Signs Vital signs: Vital Signs Temp 98.6 F 06/01/23 07:00 Pulse 111 H 06/01/23 07:00 Resp 16 06/01/23 07:00 BP 163/93 06/01/23 07:00 Pulse Ox 94 L 06/01/23 07:00 FiO2 Intake & Output 05/31/23 06/01/23 06/01/23 19:59 06:59 18:59 Intake Total 90 Output Total Balance 90 Intake: IV Oral 90 Output: Estimated Blood Loss Other: # Voids 1 - Exam General: The patient is awake and alert, with occasional retching Neck: The neck is supple, there is no thyromegaly, lymphadenopathy, tenderness or JVD. Cardiovascular: S1S2 is normal, There is a regular rate and rhythm. No murmur, rub or gallop is appreciated. Respiratory: Lungs are clear to auscultation bilaterally, respirations are non-labored, breath sounds are equal. Gastrointestinal: Soft, non-distended, non-tender abdomen without masses or organomegaly noted. There is no rebound or guarding present. Bowel sounds are unremarkable. Musculoskeletal: Deferred at this time. Neurological: CN II-XII intact, there are no obvious motor or sensory deficits. Coordination appears grossly intact. Speech is normal. Skin: Skin is warm and dry and no rashes or lesions are noted. - Labs CBC & Chem 7: 06/01/23 04:15 05/29/23 02:31 Labs: Abnormal Lab Results - Last 24 Hours (Table) 06/01/23 Range/Units 04:15 Plt Count 127 L (150-450) k/uL Neutrophils # 8.7 H (1.3-7.7) k/uL Lymphocytes # 0.6 L (1.0-4.8) k/uL Assessment and Plan (1) Syncope Current Visit: Yes Status: Acute Code(s): R55 - SYNCOPE AND COLLAPSE SNOMED Code(s): 797057530 (2) Back pain Current Visit: Yes Status: Acute Code(s): M54.9 - DORSALGIA, UNSPECIFIED SNOMED Code(s): 065127353 (3) Fall Current Visit: Yes Status: Acute Code(s): W19.XXXA - UNSPECIFIED FALL, INITIAL ENCOUNTER SNOMED Code(s): 8532948 (4) care home (current) use of anticoagulants Current Visit: Yes Status: Acute Code(s): Z79.01 - REAL ESTATE MANAGEMENT SPECIALIST (CURRENT) USE OF ANTICOAGULANTS SNOMED Code(s): 443461861 (5) Essential (primary) hypertension Current Visit: Yes Status: Acute Code(s): I10 - ESSENTIAL (PRIMARY) HYPERTENSION SNOMED Code(s): 04745116 (6) Mixed hyperlipidemia Current Visit: Yes Status: Acute Code(s): E78.2 - MIXED HYPERLIPIDEMIA SNOMED Code(s): 757984718 (7) Asthma Current Visit: No Status: Acute Code(s): J45.909 - UNSPECIFIED ASTHMA, UNCOMPLICATED SNOMED Code(s): 383145715 (8) Migraine Current Visit: No Status: Acute Code(s): G43.909 - MIGRAINE, UNSP, NOT INTRACTABLE, WITHOUT STATUS MIGRAINOSUS SNOMED Code(s): 13128115 (9) Weakness Current Visit: No Status: Acute Code(s): R53.1 - WEAKNESS SNOMED Code(s): 15419670 (10) Misuse of medication Current Visit: Yes Status: Acute Code(s): F19.90 - OTHER PSYCHOACTIVE SUBSTANCE USE, UNSPECIFIED, UNCOMPLICATED SNOMED Code(s): 225530209 (11) H/O deep venous thrombosis Current Visit: Yes Status: Acute Code(s): Z86.718 - PERSONAL HISTORY OF OTHER VENOUS THROMBOSIS AND EMBOLISM SNOMED Code(s): 184834272 Plan: Is status post kyphoplasty POD #1 social work/PT for possible ECF placement. 40 change her antiemetic by adding Compazine. She'll continue Zofran. We'll discontinue morphine. We'll add hydrocodone for severe pain. She'll continue on tramadol
--- NOTE | 2023-06-01 13:14 | XR ---
EXAMINATION TYPE: XR abdomen 2V DATE OF EXAM: 06/01/2023 COMPARISON: NONE HISTORY: Nausea, abdominal pain TECHNIQUE: Supine and upright views of the abdomen were obtained. FINDINGS: Small bowel demonstrates no evidence for dilatation or air fluid levels. Gas and fecal material is seen in non-distended colon. No convincing evidence for pneumoperitoneum. No unusual calcifications. Elevation the right hemidiaphragm. The lung bases are clear. Postsurgical changes of lower thoracic spine fusion with vertebral augmentation of 11. Skin sarahy i dentified. IMPRESSION: 1. Overall nonobstructive bowel gas pattern. 2. Mild colonic stool burden. 3. Postsurgical changes of the lower thoracic spine.
[2023-06-01] MEDS: clonazePAM 0.5 MG TAB PO SCH (20:18)
[2023-06-01] MEDS: MONTELUKAST 10 MG TAB PO SCH (20:18)
[2023-06-01] MEDS: ATORVASTATIN 10 MG TAB PO SCH (20:18)
[2023-06-02] MEDS: CALCIUM CARB-VIT D 500 MG-5 MCG TAB PO SCH ×2 (05:30→17:16)
[2023-06-02] MEDS: LEVOTHYROXINE 50 MCG TAB PO SCH (05:30)
[2023-06-02] MEDS: SODIUM CHLORIDE 0.9% 1,000 ML IV SCH ×2 (05:30→22:17)
[2023-06-02] MEDS: HYDROcodone/APAP 5-325MG 1 EACH TAB PO PRN ×3 (05:33→17:16)
[2023-06-02] MEDS ORDERED: HYDROmorphone 0.5 MG/0.5 ML SYRINGE IVP PRN (07:46)
[2023-06-02] MEDS ORDERED: ONDANSETRON 4 MG/2 ML VIAL IVP ONE (07:46)
[2023-06-02] MEDS ORDERED: DEXAMETHASONE SOD PHOSPHATE 4 MG/ML 1 ML VIAL IV ONE (07:46)
[2023-06-02] MEDS: LACTATED RINGERS 1,000 ML IV SCH (08:03)
[2023-06-02] MEDS: CYANOCOBALAMIN 500 MCG TAB PO SCH ×2 (08:22→08:34)
[2023-06-02] MEDS: MULTIVITAMINS, THERA 1 EACH TAB PO SCH ×2 (08:22→08:34)
[2023-06-02] MEDS: DULoxetine HCL 60 MG CAPSULE.DR PO SCH (08:22)
[2023-06-02] MEDS: APIXABAN 5 MG TAB PO SCH ×2 (08:22→20:18)
[2023-06-02] MEDS: CYANOCOBALAMIN 1,000 MCG/ML 1 ML VIAL IM SCH (08:23)
[2023-06-02] MEDS: traMADol 50 MG TAB PO SCH ×5 (08:23→22:13)
[2023-06-02] MEDS: GABAPENTIN 300 MG CAP PO SCH ×3 (08:23→22:13)
[2023-06-02] MEDS: FOLIC ACID 1 MG TAB PO SCH ×2 (08:23→08:34)
[2023-06-02] MEDS: PANTOPRAZOLE 40 MG/10 ML VIAL IVP SCH (08:33)
[2023-06-02] MEDS: SYMBICORT 160-4.5 MCG INHALER INHALATION SCH ×2 (08:34→20:51)
[2023-06-02] MEDS: ALBUTEROL NEBULIZED 2.5 MG/3 ML INHALATION SCH ×4 (08:34→20:52)
--- NOTE | 2023-06-02 09:03 | CT ---
EXAMINATION TYPE: CT thoracic spine w con CT DLP: 1419 mGycm, Automated exposure control for dose reduction was used. DATE OF EXAM: 06/02/2023 8:01 AM COMPARISON: 05/30/2023. CLINICAL INDICATION:Female, 62 years old with history of Post op; PHH, Thoracic sx post op TECHNIQUE: Axial images of the thoracic spine were obtained without contrast. Coronal and sagittal re formats were performed. FINDINGS: Interval fixation changes to the T10-T12 regions with vertebroplasty changes at T11. No ev idence of fracture. Hardware is intact. There is skin sarahy present in the surgical bed. No evidenc e for organizing fluid collection. The remainder of the spine demonstrates degeneration changes which are mild with osteophyte formation and facet joint arthropathy. No evidence for significant spinal c anal stenosis or neural foraminal stenosis. Fixation hardware in the cervical spine is partially visualized and appears intact. There is posterior atelectasis within the lungs with possible trace bilateral pleural effusions. IMPRESSION: Postsurgical changes with hardware intact.
[2023-06-02] MEDS: LIDOCAINE 5% PATCH TOPICAL SCH ×2 (11:53→13:12)
--- NOTE | 2023-06-02 16:21 | P.DS ---
Providers Date of admission: 05/29/23 05:14 Expected date of discharge: 06/02/23 Attending physician: Joss Archer Consults: 05/29/23 05:13 Consult Physician Routine Consulting Provider: Shi Shields Consult Reason/Comments: syncope Do you want consulting provider notified?: Yes 05/29/23 11:58 Consult Physician Routine Consulting Provider: Anabelle Boucher Consult Reason/Comments: syncope Do you want consulting provider notified?: Yes 05/29/23 15:26 Consult Physician Routine Consulting Provider: Ady Farah Consult Reason/Comments: T11 compression fracture Do you want consulting provider notified?: Yes Primary care physician: Joss Archer [facility] Course: Final Diagnoses: (1) Syncope Current Visit: Yes Status: Acute Code(s): R55 - SYNCOPE AND COLLAPSE SNOMED Code(s): 994057851 (2) Back pain, acute T11 vertebral compression fracture status post kyphoplasty Current Visit: Yes Status: Acute Code(s): M54.9 - DORSALGIA, UNSPECIFIED SNOMED Code(s): 312538945 (3) Fall Current Visit: Yes Status: Acute Code(s): W19.XXXA - UNSPECIFIED FALL, INITIAL ENCOUNTER SNOMED Code(s): 5472327 (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 Current Visit: Yes Status: Acute Code(s): Z79.01 - INTERMEDIATE (CURRENT) USE OF ANTICOAGULANTS SNOMED Code(s): 722925380 (5) Essential (primary) hypertension Current Visit: Yes Status: Acute Code(s): I10 - ESSENTIAL (PRIMARY) HYPERTENSION SNOMED Code(s): 04424718 (6) Mixed hyperlipidemia Current Visit: Yes Status: Acute Code(s): E78.2 - MIXED HYPERLIPIDEMIA SNOMED Code(s): 247585647 (7) Asthma Current Visit: No Status: Acute Code(s): J45.909 - UNSPECIFIED ASTHMA, UNCOMPLICATED SNOMED Code(s): 017258626 (8) Migraine Current Visit: No Status: Acute Code(s): G43.909 - MIGRAINE, UNSP, NOT INTRACTABLE, WITHOUT STATUS MIGRAINOSUS SNOMED Code(s): 36707240 (9) Weakness Current Visit: No Status: Acute Code(s): R53.1 - WEAKNESS SNOMED Code(s): 47991652 (10) Misuse of medication Current Visit: Yes Status: Acute Code(s): F19.90 - OTHER PSYCHOACTIVE SUBSTANCE USE, UNSPECIFIED, UNCOMPLICATED SNOMED Code(s): 229256628 (11) H/O deep venous thrombosis Current Visit: Yes Status: Acute Code(s): Z86.718 - PERSONAL HISTORY OF OTHER VENOUS THROMBOSIS AND EMBOLISM SNOMED Code(s): 937078582 Hospital course:This is a 62 year old female patient of my practice. She got up last night to make a cheese sandwich. She reports at some point she lost consciousness. She has no recollection of the events. Family had called EMS.She has a history of DVT, and is on Eliquis. Upon awakening, she had no complaints other than back pain. She denies any chest pain, shortness of breath that is different anyway. She does have chronic shortness of breath from asthma. She denies any nausea or vomiting. She denied urinating or defecating.She did not bite her tongue.This morning she is resting comfortably in her hospital bed. Her main complaint is back pain. Patient is afebrile, heart rate is regular, blood pressure normal. Laboratory studies are normal. 05/30/2023 dobutamine echo rescheduled for today. Echo reported normal LV function, EF 55-60%.Denies chest pain, palpitations or shortness of breath. Complains of back pain, did not sleep well. Radiology studies of back reporting acute T11 vertebral compression fracture as per orthopedic surgery review. Scheduled for kyphoplasty. Afebrile. Evaluated by neurology, EEG pending. Dobutamine echo reported normal with no evidence of stress-induced ischemia. 05/31/2023: Patient is here for syncopal episode and T11 vertebral compression fracture. She had a kyphoplasty this morning. Family came in this morning stating that she's been taking medications inappropriately and not as prescribed. She's also been taking medications that are not hers. They believe this is leading to her falling. His medications include baclofen and Klonopin and Compazine. She is also taking Seroquel. I discussed this with the patient and she admits to taking occasionally extra medication. She denies any chest pains pressures or shortness of breath. Has had significant asthma and some chest heaviness is chronic. Her back pain is better. She is medicated though. She denies any nausea and vomiting currently. 06/01/2023: Overnight patient's care was complicated by ongoing nausea. She received Zofran multiple times. Compazine was added to her medication regimen. She is minimally better today. She is moving better than she was this morning. The plan was originally for her to go home today. Does not really take in much pain medications past 12 hours. She does complain of ongoing low back pain at the site of her kyphoplasty postoperative day #1. She denies any chest pains pressures or shortness of breath this time. Has not had a stool recently. She has senna ordered. She remains on singular, albuterol and Symbicort for asthma. She remains on eliquis for DVT hx, lipitor for hyperlipidemia, levothyroxine for hypothyroidism. Her family is requesting possible ECF. Significant clinical improvement. Cleared about consults for discharge. Patient will be discharged to subacute rehab today in a stable condition with guarded prognosis. The impression and plan of care has been dictated as directed. : I performed a history and examination of this patient, discussed the same with the dictator. I agree with the dictator's note ,documented as a scribe. Any additional findings or plans will be noted. Patient Condition at Discharge: Stable Plan - Discharge Summary Discharge Rx Participant: No New Discharge Prescriptions: New Sennosides/Docusate Sodium [Senna Plus 8.6-50 mg Softgel] 1 each PO DAILY #20 capsule methocarbamoL [Robaxin] 500 mg PO TID PRN #9 tab PRN Reason: Muscle Spasm cefaDROXiL [Duricef] 500 mg PO Q12HR 5 Days #10 cap Gabapentin [Neurontin] 300 mg PO TID #9 cap traMADol HCl [Ultram] 100 mg PO QID #24 tab Continue Montelukast [Singulair] 10 mg PO HS Albuterol Sulfate [Albuterol Sulfate Hfa] 2 puff INHALATION RT-QID PRN PRN Reason: Shortness Of Breath Famotidine [Pepcid] 20 mg PO HS Levothyroxine Sodium [Synthroid] 50 mcg PO DAILY DULoxetine HCL [Cymbalta] 60 mg PO DAILY Baclofen [Lioresal] 20 mg PO TID PRN PRN Reason: Muscle Spasm Omeprazole [PriLOSEC] 20 mg PO DAILY Apixaban [Eliquis] 5 mg PO BID Atorvastatin [Lipitor] 10 mg PO HS Budesonide/Formoterol Fumarate [Symbicort 160-4.5 Mcg Inhaler] 2 puff INHALATION RT-BID clonazePAM [KlonoPIN] 0.5 mg PO BID PRN #6 tab PRN Reason: dizziness Discontinued Butalb/APAP/Caff 50-325-40Mg [Fioricet 50-325-40] 1 tab PO BID PRN PRN Reason: Migraine Headache Discharge Medication List Montelukast [Singulair] 10 mg PO HS 04/23/18 [History] Albuterol Sulfate [Albuterol Sulfate Hfa] 2 puff INHALATION RT-QID PRN 12/25/18 [History] Famotidine [Pepcid] 20 mg PO HS 01/31/20 [History] Levothyroxine Sodium [Synthroid] 50 mcg PO DAILY 01/31/20 [History] DULoxetine HCL [Cymbalta] 60 mg PO DAILY 09/20/20 [History] Omeprazole [PriLOSEC] 20 mg PO DAILY 03/26/21 [History] Apixaban [Eliquis] 5 mg PO BID 12/16/22 [History] Atorvastatin [Lipitor] 10 mg PO HS 05/29/23 [History] Baclofen [Lioresal] 20 mg PO TID PRN 05/29/23 [History] Budesonide/Formoterol Fumarate [Symbicort 160-4.5 Mcg Inhaler] 2 puff INHALATION RT-BID 05/29/23 [History] Sennosides/Docusate Sodium [Senna Plus 8.6-50 mg Softgel] 1 each PO DAILY #20 capsule 06/01/23 [Rx] cefaDROXiL [Duricef] 500 mg PO Q12HR 5 Days #10 cap 06/01/23 [Rx] Gabapentin [Neurontin] 300 mg PO TID #9 cap 06/02/23 [Rx] clonazePAM [KlonoPIN] 0.5 mg PO BID PRN #6 tab 06/02/23 [Rx] methocarbamoL [Robaxin] 500 mg PO TID PRN #9 tab 06/02/23 [Rx] traMADol HCl [Ultram] 100 mg PO QID #24 tab 11/06/23 [Rx] Follow up Appointment(s)/Referral(s): Ady Farah DO [Doctor of Osteopathic Medicine] - 2 Weeks Joss Archer MD [Primary Care Provider] - 1-2 days Patient Instructions/Handouts: Kyphoplasty (DC) Activity/Diet/Wound Care/Special Instructions: Spine Discharge and Recovery Instructions Okay to remove dressings beginning , 06/05/2023. Date of Surgery: 05/31/2023 Diagnosis: T11 vertebral compression fracture Procedure: T11 stabilization and kyphoplasty Medications: See medication list All medication refills should be obtained through your primary care doctor or your clinic spine surgeon. Please discuss prescription refills at your follow up appointment. Do not call the hospital for medication refills. Dressing: Leave your dressing in place for a total of 5 days post operatively. Then you may remove your dressing and leave open to air. Keep the area clean and if not able to keep area clean, then cover with sterile gauze and tape. Showering: You may shower 3 days after your procedure allowing soap and water to run over incision. Do not scrub. Do not soak. Blot dry. Follow up: Please confirm a follow up appointment with your surgeon 3 weeks post operatively. Please make an appointment to follow up with your PCP in 1-2 weeks after surgery for evaluation 3 phase, 3-week plan POST OP WEEKS 1-3 1. Lifting/carrying/pushing/pulling limited to less than 5 pounds. 2. Do not sit for longer than 15 minutes at one time. Get up and walk around. Prolonged sitting is NOT advised. If you lay down, see if you can tolerate laying down on you front (belly side) 3. Walk for periods of 15 minutes = 1 mile but no longer; do it multiple times times each day. 4. Ice your low back after activity. POST OP WEEKS 3-6 1. Lifting limited to less than 20 pounds. 2. Do not sit for longer than 30 minutes at a time. Frequently change positions. Use a sit-to stand workstation or take frequent breaks from sitting if you have returned to work. 3. Walk for 30 minutes each day. If possible, do these three or more times a day POST OP WEEKS 6+ At your 6-week appointment we will give you a physical therapy referral to focus on a core stabilization and strengthening program. You should also work on leg & buttock strengthening, hamstring & quadriceps stretching, and continue a low impact aerobic activity program such as swimming, walking, or riding a stationary bicycle. During the initial 6 weeks after your surgery, you are at the highest risk of re-injuring your spine. You should generally avoid BLTs (bending, lifting and twisting combination motions) and follow the above guidelines to reduce the chance of reinjury. You can anticipate post op appointments in our office at approximately 3 weeks and 6 weeks after your surgery. INCISION CARE: If your incision is not draining you do NOT need to cover it with a dressing. Keep your incision clean, dry and intact. In most cases, we apply skin glue, sarahy or sutures to the incision at the time of surgery. This will be like a crust or have the appearance of a scab and will fall off in time on its own. The stitches or sarahy need to be removed at 3 weeks post op appointment. You may begin to shower 3 days after surgery (this allows the glue to duong well). However, please avoid scrubbing the incision site or peeling off any of the skin glue. This will ensure optimal healing of your incision. Also, during this time avoid soaking the incision area in water - this includes swimming pools, hot tubs or baths. No ointments, lotions or oils on the incision until your surgeon allows. Leave sarahy, sutures or glue in place. Neurological dysfunction that comes on suddenly can also be a sign of a stroke. Below some common symptoms of a stroke are listed: B - balance difficulty such as sudden onset walking or leaning to one side - NEW E - eye problem such as sudden double vision or trouble seeing on one side - NEW F - Facial weakness or numbness on one side - NEW A - Arm or leg weakness or numbness on one side - NEW S - Slurred speech or difficulty with word finding - NEW T - Time is BRAIN! Call 911 as soon as you recognize these symptoms Diet: Consume a regular diet rich in vegetables and lean protein such as chicken or fish. You should consume in a ratio of approximately 20% fats|40% carbohydrates|40%protein. Vegetables, sweet potatoes, brown rice or quinoa are examples of good carbohydrates. Chips, white bread, cookies and sweets/sugar are examples of bad carbohydrates. Limit your bad carbs, go wild with good carbs. "Life's Simple 7" Guidelines as per [place] [employer] These will help you reclaim your life after surgery and varnish melter helper in your recovery, keeping in mind your restrictions. (1) Get Active. Physical activity can help people lose weight, control high blood pressure and cholesterol, feel emotionally better, and sleep better. (2) Control Cholesterol. Avoid a diet high in saturated fat, trans fat, & cholesterol. Limit whole milk & cream, ice cream, butter, egg yolks, processed meats (like sausage and hot dogs), and fatty meats. Choose healthy foods that are low in saturated fat, trans fat and cholesterol which include: Fruits and vegetables, fiber rich grain products (like whole grain pasta and brown rice), lean meat such as chicken, fish, nuts, seeds, and legumes. (3) Eat Better. Eat small portions. Shop at the grocery with a list and do not stray from it. Tips for a healthy diet include: Limit sodium intake to less than 1500mg daily, avoid prepackaged, processed, and fast foods, choose a diet rich in fruits, vegetables, and whole grain, high fiber foods, and limit saturated & cholesterol in your diet. (4) Manage Blood Pressure. If you have high blood pressure, you should have a cuff at home so that you can check your blood pressure regularly. Be sure you have a good cuff. An arm one is generally better than a wrist one. Bring the cuff to a doctor's appointment to validate that the measurements that your cuff are taking are accurate. Take your blood pressure twice daily when you are sitting down and relaxing. Record the numbers in a log and bring this log with you to your doctors' appointments. (5) Lose Weight if your BMI is above 25. A healthy BMI is between 19-25. To calculate Your BMI, you may use a Standard BMI Calculator on the NIH BMI website: <www.nhlbi.nih.gov/guidelines/obesity/BMI/bmicalc.htm>. Weigh oneself daily. If you are overweight, set a goal to lose weight. A pound a week loss if needed is a good target. (6) Reduce Blood Sugar. Limit foods and liquids with "added sugars." (Added sugars include sucrose, fructose, glucose, maltose, dextrose, high fructose corn syrup, corn syrup, concentrated fruit juice and honey). (7) Stop Smoking. If you smoke, quitting smoking is one of the best things that you can do for your health. Smoking increases your risk of heart attack, stroke, and peripheral vascular disease, which is a build-up of plaque in your arteries. Please discard all the cigarettes and lighters in your house. Have a plan for what you will do when you have the urge to smoke. Direct and second- hand smoke shortens your life as well as the lives of your family, friends and others around you. For your health and the health of those around you, please consider quitting! Proper Bending Body Mechanics: Maintain a wide stance with one foot slightly in front of the other. Keep your back straight. Bend utilizing the strength in your hips and knees. Do not bend at the waist. Maintain the lifted object at your waist-level close to your body. Avoid lifting weight that causes immediately pain or pain anywhere in the body afterwards. Smoking/Nicotine If there was ever one thing that you could do to increase your overall health, decrease your risk of cardiovascular problems by about 39% the second you make the choice, it is to STOP SMOKING. Your body's most instant gratification is the second you stop smoking. We have all heard the studies, read the articles but it is true, smoking is extremely bad for your overall health, and moreover it is detrimental to your bone health. Nicotine, IN ANY FORM, kills bone cells, prevents your body from healing fractures, and significantly prolongs healing after surgery. In spine surgery specifically, it increases your risk of not healing your bones to create a fusion and increases your risk of having a revision surgery due to this up to 60%. I know it is hard. I know it feels impossible. But there are ways. Take control of your life. We are here to help you through it. And when you are ready, ask us and we can direct you to help if you desire. Use the START Plan to Quit Smoking (please visit the Helpguide.org website listed below for more information): S = Set a quit date. Choose a date within the next 2 weeks, so you have enough time to prepare without losing your motivation to quit. If you mainly smoke at work, quit on the weekend, so you have a few days to adjust to the change. T = Tell family, friends, and co-workers that you plan to quit. Let your friends and family in on your plan to quit smoking and tell them you need their support and encouragement to stop. Look for a quit melissa who wants to stop smoking as well. You can help each other get through the rough times. A = Anticipate and plan for the challenges you'll face while quitting. Most people who begin smoking again do so within the first 3 months. You can help yourself make it through by preparing ahead for common challenges, such as nicotine withdrawal and cigarette cravings. R = Remove cigarettes and other tobacco products from your home, car, and work. Throw away all your cigarettes (no emergency pack!), lighters, ashtrays, and matches. Wash your clothes and freshen up anything that smells like smoke. Shampoo your car, clean your drapes and carpet, and steam your furniture. T = Talk to your doctor about getting help to quit. Your doctor can prescribe medication to help with withdrawal and suggest other alternatives. If you can't see a doctor, you can get many products over the counter at your local pharmacy or grocery store, including the nicotine patch, nicotine lozenges, and nicotine gum. Resources for Quitting Smoking: <https://www.[place].gov/documents/[facility]/Quit_Tobacco_Resources_for_patients _313480_7.pdf> Supplementation: Take recommended dosages of Vitamin D and Calcium to help fortify your bones and help them to heal. See your health maintenance packet for dosages and recomm ended levels. DVT/VTE prophylaxis: You will be given compression stockings from the hospital. Wear these daily for the first two weeks after surgery. You may take them off at night. You may be prescribed a medication to help thin your blood. Take this as directed. If you are not prescribed this medication, early and frequent ambulation has been shown to be the best prophylaxis to deep vein thrombosis and sequelae related to this event. Discharge/Stand Alone Forms: Outpatient Counseling, In Substance Abuse Facilities Discharge Disposition: TRANSFER TO SNF/ECF
[2023-06-02] MEDS: clonazePAM 0.5 MG TAB PO SCH (20:18)
[2023-06-02] MEDS: MONTELUKAST 10 MG TAB PO SCH (20:18)
[2023-06-02] MEDS: ATORVASTATIN 10 MG TAB PO SCH (20:18)
[2023-06-03] MEDS: HYDROcodone/APAP 5-325MG 1 EACH TAB PO PRN ×3 (00:30→14:57)
[2023-06-03 02:59] VITALS: TEMP 98.3
[2023-06-03] MEDS: LEVOTHYROXINE 50 MCG TAB PO SCH (05:30)
[2023-06-03] MEDS: LACTATED RINGERS 1,000 ML IV SCH (05:31)
[2023-06-03] MEDS: LIDOCAINE 5% PATCH TOPICAL SCH (08:27)
[2023-06-03] MEDS: FOLIC ACID 1 MG TAB PO SCH (08:34)
[2023-06-03] MEDS: PANTOPRAZOLE 40 MG/10 ML VIAL IVP SCH (08:34)
[2023-06-03] MEDS: MULTIVITAMINS, THERA 1 EACH TAB PO SCH (08:34)
[2023-06-03] MEDS: CYANOCOBALAMIN 500 MCG TAB PO SCH (08:34)
[2023-06-03] MEDS: APIXABAN 5 MG TAB PO SCH (08:34)
[2023-06-03] MEDS: DULoxetine HCL 60 MG CAPSULE.DR PO SCH (08:34)
[2023-06-03] MEDS: CALCIUM CARB-VIT D 500 MG-5 MCG TAB PO SCH ×2 (08:34→18:23)
[2023-06-03] MEDS: ALBUTEROL NEBULIZED 2.5 MG/3 ML INHALATION SCH ×3 (08:35→15:49)
[2023-06-03] MEDS: SYMBICORT 160-4.5 MCG INHALER INHALATION SCH (08:35)
[2023-06-03] MEDS: CYANOCOBALAMIN 1,000 MCG/ML 1 ML VIAL IM SCH (09:56)
[2023-06-03] MEDS: GABAPENTIN 300 MG CAP PO SCH ×2 (09:56→16:04)
[2023-06-03] MEDS: traMADol 50 MG TAB PO SCH ×3 (09:56→18:23)
[2023-06-03 15:13] VITALS: BP 127/79; RESP 16
[2023-06-03 16:01] VITALS: PULSE 98
--- NOTE | 2023-06-04 07:09 | P.OP ---
Date of Procedure: 05/31/23 Preoperative Diagnosis: 1. T11 AO B2 type with OF fracture inferior endplate to posterior body with right pedicle involvement 2. severe mid back pain, inability to ambulate 3. complex medical patient with comorbid conditions, multiple Postoperative Diagnosis: 1. T11 AO B2 type with OF fracture inferior endplate to posterior body with right pedicle involvement 2. severe mid back pain, inability to ambulate 3. complex medical patient with comorbid conditions, multiple Procedure(s) Performed: 1. Open treatment T11-12 fracture (21565) 2. T10-T12 stabilization for T11 fracture (52165) 3. T11 biopsy with kyphoplasty and fracture reduction (43388) Implants: -Sebastian everest screws and rods -Sebastian cement Anesthesia: LAVINIA Surgeon: Ady Farah Catering Cook #1: Narayan Garber (Was present and assisted with all aspects of the case from position to closure) Estimated Blood Loss (ml): 75 IV fluids (ml): 1,100 Urine output (ml): 0 Pathology: other (T11 vertebral body) Condition: stable Disposition: PACU Indications for Procedure: Luzmaria Nobles is a 62 yo female presenting for evaluation of back pain after syncope and falling at home. It was my pleasure to have seen and examined Luzmaria Nobles. In our visit today we have had a chance to go over subjective complaints, physical examination findings and treatments including the natural course history without intervention and various interventional options. The patients imaging demonstrates Fracture of T11, AOB2 with OF component. On physical exam, Luzmaria Nobles demonstrates TTP of the mid and low back, inability to ambulate due to pain. I have explained to the patient that as their condition progresses it will cause further neurological deficits and eventual paralysis. Based on the patients imaging, physical exam, and the rapid progression and disabling nature of their symptoms, at this time I recommend surgery in the form or a: T11 stabilization and kyphoplasty. I discussed the risk and benefits of this procedure at length with Luzmaria Nobles. The patient and family at bedside agreed to considered pursuing the procedure abovementioned. Prior to surgery, she should follow up with her PCP (Cardio, ID, IM etc) for clearance. Questions were invited and answered, and the patient wishes to proceed as outlined below. Currently, I am recommendin. T11 stabilization and kyphoplasty Description of Procedure: T10-T12 stabilization for T11 fx with kypho The patient was seen and examined in the preoperative area. All preoperative protocols were followed. Informed consent was obtained, risks and benefits of the procedure were discussed at length. Risks including bleeding infection damage to the surrounding tissue and risk of reoperation were discussed with the patient. Risk of anesthesia up to and including was discussed with the patient. These are outlined in the risk review. They were willing to accept these risks and all of the risks of surgery. The patient was given a weight- based dose of antibiotics in the form of 2 g Ancef. The patient was seen and evaluated by the anesthesia team who deemed them fit for surgery. The site was marked, the patient was willing to proceed with the procedure. The patient was transferred to the operative suite by the Department of anesthesia. They were then drifted off to sleep by the department anesthesia and GETA was performed. The patient tolerated this well. [Parker catheter was placed by nursing staff, atraumatically]. Once confirmation of lines and ventilation the patient was transferred to a [prone Otoniel table very carefully]. All bony prominences including wrists, elbows, axilla, chest, hips, and thighs, and feet were padded very well. Special attention was paid to the genitalia and these were padded accordingly. SCDs were placed on bilateral lower extremities and were connected. Arms were well padded and placed [on arm boards up and out in the 90/90 position]. Once in position, again we confirmed good ventilation capabilities and that lines were running appropriately. The patient's thoracolumbar spine was then exposed. 1010s were placed outlining the incision site. Standard alcohol was used to clean the incision site and allowed to dry. C-arm was used to needle localize T11 and then biomark the patient and confirm level for incision which was marked with a skin marker. Operative briefing was performed with all teams and everyone in agreement to proceed. The patient was then prepped and draped in a normal sterile fashion. Timeout was then performed and all parties were in agreement with the procedure to be performed. Needle was then placed again sterilely at the T11 region. Biplanar flouroscopy was then used to target pedicles with Jamshidi. This was placed into bilateral pedicles at T10 followed by a wire and Jamshidi was removed we then placed him into T12 bilaterally and then placed wires and the void. AP and lateral imaging confirmed good placement of wires. We then placed screws over these wires into position in the levels indicated. The screws were tested and all tested above 20 mA. AP and lateral confirmed good placement of screws. We then proceeded with biopsy and kyphoplasty of T11 needle was removed and a Jamshidi was introduced into T11 to advance the vertebral body. We then performed a biopsy of the vertebral body using a biopsy needle. We then performed drilling and curettage and balloon kyphoplasty of T11. We did obtain an increase in the superior endplate that was reduced 3-4 mm back in the position. We then fill this void with cement. All screws were then cemented into position through the cement cannulas. The patient remained stable throughout cementation and there was no cement extravasation angiogram a myelogram. We then sized and selected rods for the area rods were then placed subfascially through the tulips of each screw. Set screws were then placed and all screws to secure the rods bilat erally. Set screws were then final tightened and tabs broken off the screws. Final imaging confirmed good placement of rods and screws, good reduction and stabilization. We irrigated the wounds thoroughly with normal sterile saline. The deep fascia was closed with 0 Vicryl superficial subcu closed with 2-0 Vicryl and skin closed with skin sarahy the wound edges approximated very well. wounds were then cleaned and sterilely dressed without dressings. The patient was transferred back to their hospital bed atraumatically. Patient was then awakened and extubated by the department of anesthesia having tolerated the procedure very well with no complications. They were transferred to the postoperative care unit in stable condition.
== END 2023-06-03 19:15 | DRG 321 ==
LOC: EC 01:59 → 6NMEDSUR 05:14 → OBSVTOIN 05:14 → 6NMEDSUR 06:49
PROVIDERS: ADMIT Family Medicine; ATTEND Family Medicine
PROC: 0PU40JZ Supplement Thoracic Vertebra with Synthetic Substitute, Open Approach (ICD-10-PCS; principal; 2023-05-31 08:00)
PROC: 0PS404Z Reposition Thoracic Vertebra with Internal Fixation Device, Open Approach (ICD-10-PCS; principal; 2023-05-31 08:00)
PROC: 0P943ZX Drainage of Thoracic Vertebra, Percutaneous Approach, Diagnostic (ICD-10-PCS; principal; 2023-05-31 08:00)
DX: S22.080A Wedge compression fracture of T11-T12 vertebra, initial encounter for closed fracture (principal); Z91.81 History of falling; E03.9 Hypothyroidism, unspecified; E53.8 Deficiency of other specified B group vitamins; E78.2 Mixed hyperlipidemia; F32.A Depression, unspecified; F41.9 Anxiety disorder, unspecified; J45.909 Unspecified asthma, uncomplicated; I10 Essential (primary) hypertension; G43.909 Migraine, unspecified, not intractable, without status migrainosus; K44.9 Diaphragmatic hernia without obstruction or gangrene; Y92.009 Unspecified place in unspecified non-institutional (private) residence as the place of occurrence of the external cause; R55 Syncope and collapse; W01.0XXA Fall on same level from slipping, tripping and stumbling without subsequent striking against object, initial encounter; R13.10 Dysphagia, unspecified; G89.29 Other chronic pain; H91.90 Unspecified hearing loss, unspecified ear; R29.6 Repeated falls; K21.9 Gastro-esophageal reflux disease without esophagitis; H93.19 Tinnitus, unspecified ear; I25.2 Old myocardial infarction; Z87.01 Personal history of pneumonia (recurrent); Z28.310 Unvaccinated for COVID-19; Z28.21 Immunization not carried out because of patient refusal; Z79.01 Long term (current) use of anticoagulants; Z79.51 Long term (current) use of inhaled steroids; Z79.890 Hormone replacement therapy; Z79.899 Other long term (current) drug therapy; Z86.718 Personal history of other venous thrombosis and embolism; Z86.73 Personal history of transient ischemic attack (TIA), and cerebral infarction without residual deficits; Z87.11 Personal history of peptic ulcer disease; Z98.1 Arthrodesis status; Z91.148 Patient's other noncompliance with medication regimen for other reason; Z82.5 Family history of asthma and other chronic lower respiratory diseases; Z86.61 Personal history of infections of the central nervous system; Z87.440 Personal history of urinary (tract) infections
CPT/HCPCS: 36415; 70450; 71045; 72070; 72100; 72125; 72128; 72129; 72170; 74019; 80053; 82607; 82746; 83735; 84484; 85025; 85610; 85730; 86850; 86900; 86901; 88307; 88311; 93005; 93306; 93351; 93880; 94640; 95816; 96374; 96375; 99285

== ENCOUNTER 2023-08-17 11:15 | Emergency (ER) | payer OTHER ==
[2023-08-17] MEDS ORDERED: SODIUM CHLORIDE 0.9% 500 ML 500 ML IV ONE (11:53)
[2023-08-17] MEDS ORDERED: METOCLOPRAMIDE 5 MG/ML 2 ML VIAL IVP STA (11:53)
[2023-08-17] MEDS ORDERED: HYDROmorphone 0.5 MG/0.5 ML SYRINGE IVP STA (11:53)
[2023-08-17] MEDS ORDERED: MAGNESIUM SULFATE-D5W PMX 1 GM in DEXTROSE/WATER 1 100ML.BAG IVPB ONE (11:53)
--- NOTE | 2023-08-17 12:04 | ED ---
General Adult HPI - General Chief complaint: Headache Stated complaint: nose bleed on blood thinners high BP Time Seen by Provider: 08/17/23 11:38 Source: patient, RN notes reviewed, old records reviewed Mode of arrival: ambulatory Limitations: no limitations - History of Present Illness Initial comments: 62-year-old female history of DVT on Eliquis presents for evaluation of nosebleed. Patient states that her nose was very dry she's had some congestion. She developed the right nostril nosebleed several hours prior to arrival. She has had nosebleed previously requiring packing. She additionally has had a migraine headache for the past several days which she states is typical of her usual migraines. - Related Data Home Medications Medication Instructions Recorded Confirmed Montelukast [Singulair] 10 mg PO HS 04/23/18 05/29/23 Albuterol Sulfate [Albuterol 2 puff INHALATION RT-QID PRN 12/25/18 05/29/23 Sulfate Hfa] Famotidine [Pepcid] 20 mg PO HS 01/31/20 05/29/23 Levothyroxine Sodium [Synthroid] 50 mcg PO DAILY 01/31/20 05/29/23 DULoxetine HCL [Cymbalta] 60 mg PO DAILY 09/20/20 05/29/23 Omeprazole [PriLOSEC] 20 mg PO DAILY 03/26/21 05/29/23 Apixaban [Eliquis] 5 mg PO BID 12/16/22 05/29/23 Atorvastatin [Lipitor] 10 mg PO HS 05/29/23 05/29/23 Baclofen [Lioresal] 20 mg PO TID PRN 05/29/23 05/29/23 Budesonide/Formoterol Fumarate 2 puff INHALATION RT-BID 05/29/23 05/29/23 [Symbicort 160-4.5 Mcg Inhaler] Previous Rx's Medication Instructions Recorded Sennosides/Docusate Sodium [Senna 1 each PO DAILY #20 capsule 06/01/23 Plus 8.6-50 mg Softgel] cefaDROXiL [Duricef] 500 mg PO Q12HR 5 Days #10 cap 06/01/23 methocarbamoL [Robaxin] 500 mg PO TID PRN #9 tab 06/02/23 Gabapentin [Neurontin] 300 mg PO TID 3 Days #9 cap 06/03/23 HYDROcodone/APAP 5-325MG [[place] 1 each PO Q6HR PRN #12 tab 06/03/23 5-325] clonazePAM [KlonoPIN] 0.5 mg PO HS #3 tab 06/03/23 Amoxic-Pot Clav 875-125Mg 1 tab PO Q12HR 5 Days #10 tab 08/17/23 [Augmentin 875-125] Allergies Allergy/AdvReac Type Severity Reaction Status Date / Time No Known Allergies Allergy Verified 08/17/23 11:35 Review of Systems ROS Statement: Those systems with pertinent positive or pertinent negative responses have been documented in the HPI. ROS Other: All systems not noted in ROS Statement are negative. Past Medical History Past Medical History: Asthma, CVA/TIA, GERD/Reflux, Hyperlipidemia, Hypertension, Pneumonia, Thyroid Disorder Additional Past Medical History / Comment(s): freq stridor,tracheal malacia, steroid injection November 2022,HEADACHES, CHRONIC BACK AND NECK PAIN, STATES "THICKENING OF THE HEART", OCCASIONAL SWELLING LEFT LEG, STATES TIA FEBRUARY 2018 AND HAS WEAKNESS & DIZZINESS & CONFUSION SINCE TIA ., USING WALKER prn ., STOMACH ULCER, HIATAL HERNIA. 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 COLONOSCOPY. bronchoscopy Past Anesthesia/Blood Transfusion Reactions: No Reported Reaction Additional Past Anesthesia/Blood Transfusion Reaction / Comment(s): pt states layngeal palsy with difficulty swallowing after cervical surgery. maternal aunt and grandma difficulty waking after anesthesia Past Psychological History: Anxiety, Depression Smoking Status: Never smoker Past Alcohol Use History: None Reported Past Drug Use History: None Reported - Past Family History Father Family Medical History: Unable to Obtain Additional Family Medical History / Comment(s): schizoprenia Mother Family Medical History: COPD, CVA/TIA General Exam Limitations: no limitations General appearance: alert, in no apparent distress Head exam: Present: atraumatic, normocephalic Eye exam: Present: normal appearance, PERRL ENT exam: Present: other (Bleeding from the right nostril) Neck exam: Present: normal inspection. Absent: tenderness, meningismus Respiratory exam: Present: normal lung sounds bilaterally. Absent: respiratory distress, wheezes Cardiovascular Exam: Present: regular rate, normal rhythm GI/Abdominal exam: Present: soft. Absent: distended, tenderness, guarding Extremities exam: Present: normal inspection, normal capillary refill Neurological exam: Present: alert, oriented X3, CN II-XII intact. Absent: motor sensory deficit Psychiatric exam: Present: normal affect, normal mood Skin exam: Present: warm, dry, intact Course Vital Signs 08/17/23 08/17/23 08/17/23 11:28 11:40 12:31 Temperature 97.6 F 98.1 F Pulse Rate 110 H 106 H 107 H Respiratory 20 20 18 Rate Blood Pressure 127/72 157/97 140/59 O2 Sat by Pulse 95 95 98 Oximetry 08/17/23 13:15 Temperature Pulse Rate 96 Respiratory 18 Rate Blood Pressure 144/71 O2 Sat by Pulse 93 L Oximetry Medical Decision Making - Medical Decision Making Was pt. sent in by a medical professional or institution (, PA, CENTRAL OFFICE ASSOCIATE, urgent care, hospital, or custodial...) When possible be specific @ -No Did you speak to anyone other than the patient for history (EMS, parent, family, police, friend...)? What history was obtained from this source @ -No Did you review nursing and triage notes (agree or disagree)? Why? @ -I reviewed and agree with nursing and triage notes Were old charts reviewed (outside hosp., previous admission, EMS record, old EKG, old radiological studies, urgent care reports/EKG's, custodial records)? Report findings @ -No old charts were reviewed Differential Diagnosis (chest pain, altered mental status, abdominal pain women, abdominal pain men, vaginal bleeding, weakness, fever, dyspnea, syncope, headache, dizziness, GI bleed, back pain, seizure, CVA, palpatations, mental health, musculoskeletal)? @ -Nose bleed, EKG interpreted by me (3pts min.). @ -As above X-rays interpreted by me (1pt min.). @ -None done CT interpreted by me (1pt min.). @ -None done U/S interpreted by me (1pt. min.). @ -None done What testing was considered but not performed or refused? (CT, X-rays, U/S, labs)? Why? @ -None What meds were considered but not given or refused? Why? @ -None Did you discuss the management of the patient with other professionals (professionals i.e. , PA, CENTRAL OFFICE ASSOCIATE, lab, RT, psych nurse, hospice social worker, fund manager, teacher, quarantine officer, pillowcase sewer)? Give summary @ -No Was smoking cessation discussed for >3mins.? @ -No Was critical care preformed (if so, how long)? @ -No Were there social determinants of health that impacted care today? How? (Homelessness, low income, unemployed, alcoholism, drug addiction, transportation, low edu. Level, literacy, decrease access to med. care, longterm, rehab)? @ -No Was there de-escalation of care discussed even if they declined (Discuss DNR or withdrawal of care, Hospice)? DNR status @ -No What co-morbidities impacted this encounter? (DM, HTN, Smoking, COPD, CAD, Cancer, CVA, ARF, Chemo, Hep., AIDS, mental health diagnosis, sleep apnea, morbid obesity)? @ -Hypertension, chronic headache Was patient admitted / discharged? Hospital course, mention meds given and route, prescriptions, significant lab abnormalities, going to OR and other pertinent info. @ 62-year-old female with nosebleed, headache over the past several days, typical of her usual headache. Laboratory testing is unremarkable. Patient does admit to dry nose is likely cause of bleeding and states she's had this in the past. She receives a nasal packing in the emergency department. Undiagnosed new problem with uncertain prognosis? @ -No Drug Therapy requiring intensive monitoring for toxicity (Heparin, Nitro, Insulin, Cardizem)? @ -No Were any procedures done? @ -No Diagnosis/symptom? @ -Epistaxis Acute, or Chronic, or Acute on Chronic? @ acute Uncomplicated (without systemic symptoms) or Complicated (systemic symptoms)? @ -default Side effects of treatment? @ -No Exacerbation, Progression, or Severe Exacerbation? @ -No Poses a threat to life or bodily function? How? (Chest pain, [place], [place], pneumonia, PE, COPD, DKA, ARF, appy, cholecystitis, CVA, Diverticulitis, Homicidal, Suicidal, threat to staff... and all critical care pts) @ -No - Lab Data Result diagrams: 08/17/23 12:21 08/17/23 12:21 Lab Results 08/17/23 08/17/23 08/17/23 Range/Units 12:00 12:21 12:21 WBC 6.7 (3.8-10.6) k/uL RBC 4.30 (3.80-5.40) m/uL Hgb 13.3 (11.4-16.0) gm/dL Hct 39.9 (34.0-46.0) % MCV 92.9 (80.0-100.0) fL MCH 30.9 (25.0-35.0) pg MCHC 33.3 (31.0-37.0) g/dL RDW 13.2 (11.5-15.5) % Plt Count 204 (150-450) k/uL MPV 8.4 Neutrophils % 78 % Lymphocytes % 16 % Monocytes % 5 % Eosinophils % 1 % Basophils % 0 % Neutrophils # 5.2 (1.3-7.7) k/uL Lymphocytes # 1.1 (1.0-4.8) k/uL Monocytes # 0.3 (0-1.0) k/uL Eosinophils # 0.1 (0-0.7) k/uL Basophils # 0.0 (0-0.2) k/uL PT (10.0-12.5) sec INR (<1.2) APTT (22.0-30.0) sec Sodium 140 (137-145) mmol/L Potassium 4.9 (3.5-5.1) mmol/L Chloride 110 H (98-107) mmol/L Carbon Dioxide 23 (22-30) mmol/L Anion Gap 7 mmol/L BUN 20 H (7-17) mg/dL Creatinine 0.48 L (0.52-1.04) mg/dL Est GFR (CKD-EPI)AfAm >90 (>60 ml/min/1.73 sqM) Est GFR (CKD-EPI)NonAf >90 (>60 ml/min/1.73 sqM) Glucose 125 H (74-99) mg/dL Calcium 8.8 (8.4-10.2) mg/dL Total Bilirubin 0.5 (0.2-1.3) mg/dL AST 37 H (14-36) U/L ALT 29 (4-34) U/L Alkaline Phosphatase 94 (38-126) U/L Total Protein 6.8 (6.3-8.2) g/dL Albumin 4.0 (3.5-5.0) g/dL Influenza Type A (PCR) Not Detected (Not Detectd) Influenza Type B (PCR) Not Detected (Not Detectd) RSV (PCR) Not Detected (Not Detectd) SARS-CoV-2 (PCR) Not Detected (Not Detectd) 08/17/23 Range/Units 12:21 WBC (3.8-10.6) k/uL RBC (3.80-5.40) m/uL Hgb (11.4-16.0) gm/dL Hct (34.0-46.0) % MCV (80.0-100.0) fL MCH (25.0-35.0) pg MCHC (31.0-37.0) g/dL RDW (11.5-15.5) % Plt Count (150-450) k/uL MPV Neutrophils % % Lymphocytes % % Monocytes % % Eosinophils % % Basophils % % Neutrophils # (1.3-7.7) k/uL Lymphocytes # (1.0-4.8) k/uL Monocytes # (0-1.0) k/uL Eosinophils # (0-0.7) k/uL Basophils # (0-0.2) k/uL PT 10.9 (10.0-12.5) sec INR 1.0 (<1.2) APTT 25.3 (22.0-30.0) sec Sodium (137-145) mmol/L Potassium (3.5-5.1) mmol/L Chloride (98-107) mmol/L Carbon Dioxide (22-30) mmol/L Anion Gap mmol/L BUN (7-17) mg/dL Creatinine (0.52-1.04) mg/dL Est GFR (CKD-EPI)AfAm (>60 ml/min/1.73 sqM) Est GFR (CKD-EPI)NonAf (>60 ml/min/1.73 sqM) Glucose (74-99) mg/dL Calcium (8.4-10.2) mg/dL Total Bilirubin (0.2-1.3) mg/dL AST (14-36) U/L ALT (4-34) U/L Alkaline Phosphatase (38-126) U/L Total Protein (6.3-8.2) g/dL Albumin (3.5-5.0) g/dL Influenza Type A (PCR) (Not Detectd) Influenza Type B (PCR) (Not Detectd) RSV (PCR) (Not Detectd) SARS-CoV-2 (PCR) (Not Detectd) Disposition Clinical Impression: Headache, Epistaxis Disposition: HOME SELF-CARE Condition: Fair Instructions (If sedation given, give patient instructions): Nosebleed (ED), Acute Headache (ED) Prescriptions: Amoxic-Pot Clav 875-125Mg [Augmentin 875-125] 1 tab PO Q12HR 5 Days #10 tab Is patient prescribed a controlled substance at d/c from ED?: No Referrals: Jostin Batista Jr, DO [Primary Care Provider] - 1-2 days Stanislav Nascimento MD [STAFF PHYSICIAN] - 1-2 days Time of Disposition: 13:42
[2023-08-17] MEDS ORDERED: OXYMETAZOLINE 0.05% NASL SPRAY 1 SPRAY BOTTLE NASAL STA (12:25)
[2023-08-17 12:32] LABS: Basophils % (A) 0 %; Eosinophils # (A) 0.1 k/uL (0-0.7); Eosinophils % (A) 1 %; HCT 39.9 % (34.0-46.0); HGB 13.3 gm/dL (11.4-16.0); Lymphocytes # (A) 1.1 k/uL (1.0-4.8); Lymphocytes % (A) 16 %; MCH 30.9 pg (25.0-35.0); MCHC 33.3 g/dL (31.0-37.0); MCV 92.9 fL (80.0-100.0); Mean Platelet Volume 8.4; Monocytes # (A) 0.3 k/uL (0-1.0); Monocytes % (A) 5 %; Neutrophils # (A) 5.2 k/uL (1.3-7.7); Neutrophils % (A) 78 %; Platelet Count 204 k/uL (150-450); RDW 13.2 % (11.5-15.5); WBC 6.7 k/uL (3.8-10.6)
[2023-08-17 12:40] VITALS: RESP 18
[2023-08-17 12:43] LABS: ALT 29 U/L (4-34); African American GFR (CKD) >90 (>60 ml/min/1.73 sqM); Anion Gap 7 mmol/L; Blood Urea Nitrogen 20 mg/dL (7-17); Calcium 8.8 mg/dL (8.4-10.2); Carbon Dioxide 23 mmol/L (22-30); Chloride 110 mmol/L (98-107); Glucose 125 mg/dL (74-99); Non-African American GFR(CKD) >90 (>60 ml/min/1.73 sqM); Sodium 140 mmol/L (137-145); Total Bilirubin 0.5 mg/dL (0.2-1.3); Total Protein 6.8 g/dL (6.3-8.2)
[2023-08-17 12:44] LABS: AST 37 U/L (14-36); Alkaline Phosphatase 94 U/L (38-126); Potassium 4.9 mmol/L (3.5-5.1)
[2023-08-17 13:13] LABS: Partial Thromboplastin Time 25.3 sec (22.0-30.0); Prothrombin Time 10.9 sec (10.0-12.5)
[2023-08-17 14:37] VITALS: BP 142/80; PULSE 76; TEMP 98.4
== END 2023-08-17 14:30 | disposition home or self-care (01) ==
LOC: EC 11:15
DX: R10.13 Epigastric pain (principal); R51.9 Headache, unspecified; I10 Essential (primary) hypertension; E78.5 Hyperlipidemia, unspecified; E07.9 Disorder of thyroid, unspecified; J45.909 Unspecified asthma, uncomplicated; K21.9 Gastro-esophageal reflux disease without esophagitis; F41.9 Anxiety disorder, unspecified; F32.A Depression, unspecified; Z79.899 Other long term (current) drug therapy; Z79.890 Hormone replacement therapy
CPT/HCPCS: 36415; 80053; 85025; 85610; 85730; 87636; 99284; 96365; 96375 ×2; J2765; J3475; J1170

== ENCOUNTER 2023-08-20 21:39 | Emergency (ER) | payer OTHER ==
[2023-08-20 21:47] VITALS: RESP 18
--- NOTE | 2023-08-20 23:21 | ED ---
ENT HPI - General Chief complaint: ENT Stated complaint: Nose bleed Time Seen by Provider: 08/20/23 23:20 Source: patient Mode of arrival: ambulatory Limitations: no limitations - History of Present Illness Initial comments: 62-year-old female presenting with chief complaint of nosebleed. Patient was seen on Friday for nosebleed, nasal packing was applied. Patient removed the nasal packing at home yesterday. States that today around 5:30 this evening she started having recurrent nosebleeds. She also admits to headache, she has history of migraines and states that is consistent with her regular migraine. She is on Eliquis for DVT, she resumed taking her eliquis today after being instructed to hold her blood thinner at her last visit. No chest pain, difficulty breathing, numbness, tingling, injury or trauma. - Related Data Home Medications Medication Instructions Recorded Confirmed Montelukast [Singulair] 10 mg PO HS 04/23/18 05/29/23 Albuterol Sulfate [Albuterol 2 puff INHALATION RT-QID PRN 12/25/18 05/29/23 Sulfate Hfa] Famotidine [Pepcid] 20 mg PO HS 01/31/20 05/29/23 Levothyroxine Sodium [Synthroid] 50 mcg PO DAILY 01/31/20 05/29/23 DULoxetine HCL [Cymbalta] 60 mg PO DAILY 09/20/20 05/29/23 Omeprazole [PriLOSEC] 20 mg PO DAILY 03/26/21 05/29/23 Apixaban [Eliquis] 5 mg PO BID 12/16/22 05/29/23 Atorvastatin [Lipitor] 10 mg PO HS 05/29/23 05/29/23 Baclofen [Lioresal] 20 mg PO TID PRN 05/29/23 05/29/23 Budesonide/Formoterol Fumarate 2 puff INHALATION RT-BID 05/29/23 05/29/23 [Symbicort 160-4.5 Mcg Inhaler] Previous Rx's Medication Instructions Recorded Sennosides/Docusate Sodium [Senna 1 each PO DAILY #20 capsule 06/01/23 Plus 8.6-50 mg Softgel] cefaDROXiL [Duricef] 500 mg PO Q12HR 5 Days #10 cap 11/05/23 methocarbamoL [Robaxin] 500 mg PO TID PRN #9 tab 06/02/23 Gabapentin [Neurontin] 300 mg PO TID 3 Days #9 cap 06/03/23 HYDROcodone/APAP 5-325MG [[place] 1 each PO Q6HR PRN #12 tab 06/03/23 5-325] clonazePAM [KlonoPIN] 0.5 mg PO HS #3 tab 06/03/23 Amoxic-Pot Clav 875-125Mg 1 tab PO Q12HR 5 Days #10 tab 08/17/23 [Augmentin 875-125] Amoxic-Pot Clav 875-125Mg 1 tab PO Q12HR 5 Days #10 tab 08/21/23 [Augmentin 875-125] Allergies Allergy/AdvReac Type Severity Reaction Status Date / Time No Known Allergies Allergy Verified 08/20/23 21:45 Review of Systems ROS Statement: Those systems with pertinent positive or pertinent negative responses have been documented in the HPI. ROS Other: All systems not noted in ROS Statement are negative. Past Medical History Past Medical History: Asthma, CVA/TIA, GERD/Reflux, Hyperlipidemia, Hypertension, Pneumonia, Thyroid Disorder Additional Past Medical History / Comment(s): freq stridor,tracheal malacia, steroid injection November 2022,HEADACHES, CHRONIC BACK AND NECK PAIN, STATES "THIC KENING OF THE HEART", OCCASIONAL SWELLING LEFT LEG, STATES TIA FEBRUARY 2018 AND HAS WEAKNESS & DIZZINESS & CONFUSION SINCE TIA ., USING WALKER prn ., STOMACH ULCER, HIATAL HERNIA. 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 COLONOSCOPY. bronchoscopy Past Anesthesia/Blood Transfusion Reactions: No Reported Reaction Additional Past Anesthesia/Blood Transfusion Reaction / Comment(s): pt states layngeal palsy with difficulty swallowing after cervical surgery. maternal aunt and grandma difficulty waking after anesthesia Past Psychological History: Anxiety, Depression Smoking Status: Never smoker Past Alcohol Use History: None Reported Past Drug Use History: None Reported - Past Family History Father Family Medical History: Unable to Obtain Additional Family Medical History / Comment(s): schizoprenia Mother Family Medical History: COPD, CVA/TIA General Exam - General Exam Comments Initial Comments: Visual Physical Exam Vital signs reviewed General: Well-appearing, nontoxic, no acute distress. Head: Normocephalic, atraumatic Eyes: PERRLA, EOMI ENT: Airway patent Chest: Nonlabored breathing Skin: No visual rash, normal skin tone Neuro: Alert and oriented 3 Musculoskeletal: No gross abnormalities Limitations: no limitations General appearance: alert, in no apparent distress Head exam: Present: atraumatic, normocephalic Eye exam: Present: normal appearance, EOMI ENT exam: Present: other (Bleeding from the right nostril) Neck exam: Present: normal inspection Respiratory exam: Absent: respiratory distress Neurological exam: Present: alert, oriented X3 Psychiatric exam: Present: normal affect, normal mood Skin exam: Present: warm, dry Course Vital Signs 08/20/23 08/21/23 08/21/23 21:42 00:14 02:40 Temperature 98.1 F 98.2 F Pulse Rate 108 H 106 H 102 H Respiratory 18 18 18 Rate Blood Pressure 154/80 158/96 155/88 O2 Sat by Pulse 94 L 94 L 95 Oximetry Medical Decision Making - Medical Decision Making Was pt. sent in by a medical professional or institution ([facility], RETAIL ZONE SPECIALIST, urgent care, hospital, or halfway...) When possible be specific @ -No Did you speak to anyone other than the patient for history (EMS, parent, family, police, friend...)? What history was obtained from this source @ -No Did you review nursing and triage notes (agree or disagree)? Why? @ -I reviewed and agree with nursing and triage notes Were old charts reviewed (outside hosp., previous admission, EMS record, old EKG, old radiological studies, urgent care reports/EKG's, halfway records)? Report findings @ -reviewed Friday's visit for same complaint Differential Diagnosis (chest pain, altered mental status, abdominal pain women, abdominal pain men, vaginal bleeding, weakness, fever, dyspnea, syncope, headache, dizziness, GI bleed, back pain, seizure, CVA, palpatations, mental health, musculoskeletal)? @ -Differential includes rhinosinusitis induced nosebleed, structural abnormality, nose picking induced, this is not all-inclusive list EKG interpreted by me (3pts min.). @ -As above X-rays interpreted by me (1pt min.). @ -None done CT interpreted by me (1pt min.). @ -None done U/S interpreted by me (1pt. min.). @ -None done What testing was considered but not performed or refused? (CT, X-rays, U/S, labs)? Why? @ -None What meds were considered but not given or refused? Why? @ -None Did you discuss the management of the patient with other professionals (professionals i.e. , PA, RETAIL ZONE SPECIALIST, lab, RT, psych nurse, social service agency director, cinema or theatre manager, teacher, air intelligence officer, family caseworker)? Give summary @ -No Was smoking cessation discussed for >3mins.? @ -No Was critical care preformed (if so, how long)? @ -No Were there social determinants of health that impacted care today? How? (Homelessness, low income, unemployed, alcoholism, drug addiction, transportation, low edu. Level, literacy, decrease access to med. care, fdc, rehab)? @ -No Was there de-escalation of care discussed even if they declined (Discuss DNR or withdrawal of care, Hospice)? DNR status @ -No What co-morbidities impacted this encounter? (DM, HTN, Smoking, COPD, CAD, Cancer, CVA, ARF, Chemo, Hep., AIDS, mental health diagnosis, sleep apnea, morbid obesity)? @ -None Was patient admitted / discharged? Hospital course, mention meds given and route, prescriptions, significant lab abnormalities, going to OR and other pertinent info. @ -62-year-old female presenting with chief complaint of nosebleed. She was seen here on for the same complaint, nasal packing was applied which she removed herself yesterday. Bleeding resumed today. She is on eliquis for hx of dvt. Attempted to stop the bleeding with Afrin nasal spray and nasal clamp, this was unsuccessful. Rhino Rocket was applied which was successful in stopping the bleeding. Lab work shows no anemia. Remainder of lab work requires no action. Patient is provided with Augmentin for prophylaxis. She is provided with suggestions for ENTs out of our town as the ENTs in our town do not accept her insurance. The patient was previously off of her blood in her for a period of time, she is instructed to resume her blood thinner. Follow-up with PCP. Report back to ER with any new or worsening symptoms. Discussed return para meters and answered all questions. Patient conveyed verbal understanding and agreed to the plan. I discussed this case in detail with my attending Dr. Mcbride Undiagnosed new problem with uncertain prognosis? @ -No Drug Therapy requiring intensive monitoring for toxicity (Heparin, Nitro, Insulin, Cardizem)? @ -No Were any procedures done? @ -No Diagnosis/symptom? @ -Epistaxis Acute, or Chronic, or Acute on Chronic? @ -acute Uncomplicated (without systemic symptoms) or Complicated (systemic symptoms)? @ -Uncomplicated Side effects of treatment? @ -No Exacerbation, Progression, or Severe Exacerbation? @ -No Poses a threat to life or bodily function? How? (Chest pain, [place], [place], pneumonia, PE, COPD, DKA, ARF, appy, cholecystitis, CVA, Diverticulitis, Homicidal, Suicidal, threat to staff... and all critical care pts) @ -No - Lab Data Result diagrams: 08/20/23 23:46 08/20/23 23:46 Lab Results 08/20/23 08/20/23 08/20/23 Range/Units 23:46 23:46 23:46 WBC 8.1 (3.8-10.6) k/uL RBC 4.10 (3.80-5.40) m/uL Hgb 12.6 (11.4-16.0) gm/dL Hct 37.7 (34.0-46.0) % MCV 91.9 (80.0-100.0) fL MCH 30.6 (25.0-35.0) pg MCHC 33.3 (31.0-37.0) g/dL RDW 13.5 (11.5-15.5) % Plt Count 203 (150-450) k/uL MPV 8.8 Neutrophils % 70 % Lymphocytes % 22 % Monocytes % 5 % Eosinophils % 1 % Basophils % 1 % Neutrophils # 5.7 (1.3-7.7) k/uL Lymphocytes # 1.8 (1.0-4.8) k/uL Monocytes # 0.4 (0-1.0) k/uL Eosinophils # 0.1 (0-0.7) k/uL Basophils # 0.0 (0-0.2) k/uL PT 11.1 (10.0-12.5) sec INR 1.0 (<1.2) APTT 25.9 (22.0-30.0) sec Sodium 134 L (137-145) mmol/L Potassium 3.5 (3.5-5.1) mmol/L Chloride 106 (98-107) mmol/L Carbon Dioxide 21 L (22-30) mmol/L Anion Gap 7 mmol/L BUN 13 (7-17) mg/dL Creatinine 0.60 (0.52-1.04) mg/dL Est GFR (CKD-EPI)AfAm >90 (>60 ml/min/1.73 sqM) Est GFR (CKD-EPI)NonAf >90 (>60 ml/min/1.73 sqM) Glucose 99 (74-99) mg/dL Calcium 9.1 (8.4-10.2) mg/dL Total Bilirubin 0.5 (0.2-1.3) mg/dL AST 28 (14-36) U/L ALT 24 (4-34) U/L Alkaline Phosphatase 119 (38-126) U/L Total Protein 6.8 (6.3-8.2) g/dL Albumin 3.9 (3.5-5.0) g/dL Disposition Clinical Impression: Epistaxis Disposition: HOME SELF-CARE Condition: Good Instructions (If sedation given, give patient instructions): Nosebleed (ED) Additional Instructions: Follow-up with ENT in 2-3 days for packing removal. Report back to ER with any new or worsening symptoms. Options for ENT including Dr. Darren Marcelo [address] [place] [address] [facility] [id number] [place] [address] Prescriptions: Amoxic-Pot Clav 875-125Mg [Augmentin 875-125] 1 tab PO Q12HR 5 Days #10 tab Is patient prescribed a controlled substance at d/c from ED?: No Referrals: Jostin Batista Jr, [Primary Care Provider] - 1-2 days Time of Disposition: 02:31
[2023-08-21 00:02] LABS: Basophils % (A) 1 %; Eosinophils # (A) 0.1 k/uL (0-0.7); Eosinophils % (A) 1 %; HCT 37.7 % (34.0-46.0); HGB 12.6 gm/dL (11.4-16.0); Lymphocytes # (A) 1.8 k/uL (1.0-4.8); Lymphocytes % (A) 22 %; MCH 30.6 pg (25.0-35.0); MCHC 33.3 g/dL (31.0-37.0); MCV 91.9 fL (80.0-100.0); Mean Platelet Volume 8.8; Monocytes # (A) 0.4 k/uL (0-1.0); Monocytes % (A) 5 %; Neutrophils # (A) 5.7 k/uL (1.3-7.7); Neutrophils % (A) 70 %; Platelet Count 203 k/uL (150-450); RDW 13.5 % (11.5-15.5); WBC 8.1 k/uL (3.8-10.6)
[2023-08-21 00:11] LABS: Partial Thromboplastin Time 25.9 sec (22.0-30.0); Prothrombin Time 11.1 sec (10.0-12.5)
[2023-08-21] MEDS ORDERED: OXYMETAZOLINE 0.05% NASL SPRAY 1 SPRAY BOTTLE NASAL STA (00:19)
[2023-08-21 00:20] LABS: ALT 24 U/L (4-34); AST 28 U/L (14-36); African American GFR (CKD) >90 (>60 ml/min/1.73 sqM); Albumin 3.9 g/dL (3.5-5.0); Alkaline Phosphatase 119 U/L (38-126); Anion Gap 7 mmol/L; Blood Urea Nitrogen 13 mg/dL (7-17); Calcium 9.1 mg/dL (8.4-10.2); Carbon Dioxide 21 mmol/L (22-30); Chloride 106 mmol/L (98-107); Glucose 99 mg/dL (74-99); Non-African American GFR(CKD) >90 (>60 ml/min/1.73 sqM); Potassium 3.5 mmol/L (3.5-5.1); Sodium 134 mmol/L (137-145); Total Bilirubin 0.5 mg/dL (0.2-1.3); Total Protein 6.8 g/dL (6.3-8.2)
[2023-08-21] MEDS ORDERED: HYDROmorphone 0.5 MG/0.5 ML SYRINGE IVP STA (01:15)
[2023-08-21] MEDS ORDERED: HYDROmorphone 0.5 MG/0.5 ML SYRINGE IM STA (01:36)
[2023-08-21 02:47] VITALS: BP 155/88; PULSE 102; TEMP 98.2
== END 2023-08-21 02:41 | disposition home or self-care (01) ==
LOC: EC 21:39
DX: R04.0 Epistaxis (principal); J45.909 Unspecified asthma, uncomplicated; I10 Essential (primary) hypertension; E78.5 Hyperlipidemia, unspecified; F32.A Depression, unspecified; F41.9 Anxiety disorder, unspecified; K21.9 Gastro-esophageal reflux disease without esophagitis; Z79.01 Long term (current) use of anticoagulants; Z79.51 Long term (current) use of inhaled steroids; Z79.890 Hormone replacement therapy; Z79.899 Other long term (current) drug therapy
CPT/HCPCS: 99283; 96372; 36415; 80053; 85025; 85610; 85730; J1170

== ENCOUNTER → 2023-11-03 | Outpatient (CLI) | payer OTHER ==
--- NOTE | 2023-11-04 07:23 | BD ---
EXAMINATION TYPE: Axial Bone Density DATE OF EXAM: 11/03/2023 CLINICAL HISTORY: 63 years old Female. ICD-10 CODE: N95.1 MENOPAUSAL STATE Height: 67 Weight: 1941 FRAX RISK QUESTIONS: Alcohol (3 or more units per day): no Family History (Parent hip fracture): no Glucocorticoids (More than 3mos): no History of Fracture in Adulthood: T-Spine Secondary Osteoporosis: 1. Type 1 Diabetes: no 2. Hyperthyroidism: no 3. Menopause before 45: no 4. Malnutrition: no 5. Chronic liver disease: no Rheumatoid Arthritis: no Current Tobacco Use: no RISK FACTORS HISTORY OF: Hip Fracture (Right/Left): no Spine Fracture: TSpine When: 2023 History of Wrist Fracture: no Surgery to Spine/Hip(right/left)/Wrist (right/left): TSpine (T11) When: 2023 MEDICATIONS: Thyroid Medications: Synthyroid How Long: past 5 years Osteoporosis Medications: no EXAM MEASUREMENTS: Bone mineral density about the R hip (g/cm2): 0.702 Bone mineral density about the L hip (g/cm2): 0.711 T Score values are as follows: -----R Neck: -2.0 -----L Neck: -2.0 -----R Total: -2.4 -----L Total: -2.4 Z Score values are as follows: -----R Neck: -1.1 -----L Neck: -1.1 -----R Total: -1.9 -----L Total: -1.8 Baseline Study Bone mineral density about the L Wrist (g/cm2): 0.678 T Score values are as follows: -----Dist. R+U: 0.0 -----Prox. R+U: -0.1 -----Radius total: 0.1 Z Score values are as follows: -----Dist. R+U: 1.2 -----Prox. R+U: 1.1 -----Radius total: 1.2 Baseline Study FRAX%s: The graph provided illustrates a 17.1% chance for a major osteoporotic fx and a 2.5% chance f or the hips probability for fx in 10 years time. IMPRESSION: Osteopenia (T Score between -2.5 and -1). There is slightly increased risk of fracture and the patient may be considered for treatment. Re-Screen 2-5 years. NOTE: T-SCORE=SD OF THE YOUNG ADULT MEAN.
--- NOTE | 2023-11-04 10:07 | MM ---
Reason for Exam: Screening (asymptomatic). Patient History: Menarche at age 13. First Full-Term at age 18. Postmenopausal. Maternal grandmother had breast cancer. Risk Values: Fabiola 5 year model risk: 1.1%. NCI Lifetime model risk: 4.9%. Tissue Density: There are scattered areas of fibroglandular density. Findings: Analyzed By CAD. Right breast: There is no suspicious group of microcalcifications or new suspicious mass. Left breast: Focal asymmetry left breast 7.4 similar signal measuring 5 mm. There is no suspicious group of microcalcifications or new suspicious mass. Overall Assessment: Incomplete: need additional imaging evaluation, BI-RAD 0 Management: Diagnostic Mammogram of the left breast. [facility] will attempt to contact patient to return for supplemental views and ultrasound if indicated. Patient should continue monthly self-breast exams. A clinical breast exam by your physician is recommended on an annual basis. This exam should not preclude additional follow-up of suspicious palpable abnormalities. Note on Fabiola scores and lifetime risk: 1. A Fabiola score greater than 3% is considered moderate risk. If this is the case, consider specialist referral to assess eligibility for a risk reducing agent. 2. If overall lifetime risk for the development of breast cancer is 20% or higher, the patient may qualify for future screening with alternating mammogram and breast MRI. Electronically signed and approved by: Darren Cox DO
== END | disposition home or self-care (01) ==
LOC: RADMAMWWP 14:51
PROVIDERS: ATTEND Family Medicine
DX: Z12.31 Encounter for screening mammogram for malignant neoplasm of breast (principal); M85.89 Other specified disorders of bone density and structure, multiple sites; N95.1 Menopausal and female climacteric states; Z80.3 Family history of malignant neoplasm of breast
CPT/HCPCS: 77063; 77067; 77080

== ENCOUNTER → 2023-11-13 | Outpatient (CLI) | payer OTHER ==
--- NOTE | 2023-11-13 15:00 | MM ---
Reason for Exam: Additional evaluation requested from abnormal screening. Last screening mammogram was performed less than 1 month ago. Patient History: Menarche at age 13. First Full-Term at age 18. Postmenopausal. Maternal grandmother had breast cancer. Risk Values: Fabiola 5 year model risk: 1.1%. NCI Lifetime model risk: 4.9%. Prior Study Comparison: 11/03/2023 Bilateral MG 3D screening mammo w/cad, [facility]. Tissue Density: Left: There are scattered areas of fibroglandular density. Findings: Analyzed By CAD. Tiny 5 mm circumscribed nodule becomes less apparent and identified on the 3-D lateral in spot 3-D MLO views. It becomes much less pronounced on the spot 3-D CC view. A benign etiology such as a tiny cyst is favored. Reassess in 6 months. Overall Assessment: Probably benign, BI-RAD 3 Management: Diagnostic Mammogram of the left breast in 6 months. Results were given to the patient verbally at the time of exam. Patient should continue monthly self-breast exams. A clinical breast exam by your physician is recommended on an annual basis. This exam should not preclude additional follow-up of suspicious palpable abnormalities. Note on Fabiola scores and lifetime risk: 1. A Fabiola score greater than 3% is considered moderate risk. If this is the case, consider specialist referral to assess eligibility for a risk reducing agent. 2. If overall lifetime risk for the development of breast cancer is 20% or higher, the patient may qualify for future screening with alternating mammogram and breast MRI. Electronically signed and approved by: Margo Carlisle M.D. Radiologist
== END | disposition home or self-care (01) ==
LOC: RADMAMWWP 14:02
PROVIDERS: ATTEND Family Medicine
DX: R92.322 Mammographic fibroglandular density, left breast (principal); Z80.3 Family history of malignant neoplasm of breast; Z78.0 Asymptomatic menopausal state
CPT/HCPCS: 77065; G0279; 77061

== ENCOUNTER → 2024-06-02 | Outpatient (CLI) | payer OTHER ==
--- NOTE | 2024-06-07 13:42 | MM ---
Reason for Exam: Follow-up at short interval from prior study. Last screening mammogram was performed 7 month(s) ago. Patient History: Menarche at age 13. First Full-Term at age 18. Postmenopausal. Maternal grandmother had breast cancer. Risk Values: Fabiola 5 year model risk: 1.1%. NCI Lifetime model risk: 4.9%. Prior Study Comparison: 11/03/2023 Bilateral MG 3D screening mammo w/cad, [facility]. 11/13/2023 Left MG 3D work up w/cad , [facility]. Tissue Density: Left: There are scattered areas of fibroglandular density. Findings: Analyzed By CAD. Exam is stable from prior. There is a persistent stable appearing nodule upper outer quadrant middle left breast. No suspicious groups of microcalcifications, spiculated or lobular masses, architectural distortion or other secondary signs of malignancy are mammographically apparent. Overall Assessment: Benign, BI-RAD 2 Management: Screening Mammogram of both breasts in 6 months. A negative mammogram report should not preclude additional follow up of suspicious palpable abnormalities. Patient should continue monthly self breast exam. A clinical breast exam by your physician is recommended on an annual basis and results should be correlated with mammographic findings. Note on Fabiola scores and lifetime risk: 1. A Fabiola score greater than 3% is considered moderate risk. If this is the case, consider specialist referral to assess eligibility for a risk reducing agent. 2. If overall lifetime risk for the development of breast cancer is 20% or higher, the patient may qualify for future screening with alternating mammogram and breast MRI. [facility], , 06/02/2024 2:55 PM. Electronically signed and approved by: Juan Manuel Blanco D.O. Radiologis
== END | disposition home or self-care (01) ==
LOC: RADMAMWWP 14:16
PROVIDERS: ATTEND Family Medicine
DX: R92.8 Other abnormal and inconclusive findings on diagnostic imaging of breast (principal); Z78.0 Asymptomatic menopausal state; Z80.3 Family history of malignant neoplasm of breast; R92.322 Mammographic fibroglandular density, left breast
CPT/HCPCS: 77065; G0279; 77061

== ENCOUNTER → 2024-09-28 | Outpatient (CLI) | payer OTHER ==
--- NOTE | 2024-09-28 17:48 | XR ---
EXAMINATION TYPE: XR chest 2V DATE OF EXAM: 09/28/2024 4:05 PM COMPARISON: Chest radiographs from 05/29/2023 CLINICAL INDICATION: Female, 64 years old with history of R05.9 Cough; [facility] TECHNIQUE: XR chest 2V Frontal and lateral views of the chest. FINDINGS: Lungs/Pleura: There is no evidence of pleural effusion, focal consolidation, or pneumothorax. Pulmonary vascularity: Unremarkable. Heart/mediastinum: Cardiomediastinal silhouette is unremarkable. Musculoskeletal: No acute osseous pathology. Fixation hardware in the spine with appears intact. Vert ebral breasts changes present. Other findings: None IMPRESSION: No acute cardiopulmonary disease/process. [facility], , 09/28/2024 5:45 PM
== END | disposition home or self-care (01) ==
LOC: RADXRMAIN 15:43
PROVIDERS: ATTEND Family Medicine
DX: R05.9 Cough, unspecified (principal)
CPT/HCPCS: 71046

== ENCOUNTER → 2024-10-14 | Outpatient (CLI) | payer OTHER ==
--- NOTE | 2024-10-14 14:08 | XR ---
EXAMINATION TYPE: XR wrist complete RT DATE OF EXAM: 10/14/2024 1:50 PM COMPARISON: None CLINICAL INDICATION: Female, 64 years old with history of M25.531 RIGHT WRIST PAIN, pain TECHNIQUE: XR wrist complete RT; examined in the Frontal, navicular, lateral, and oblique. FINDINGS: No acute osseous pathology, joint dislocation, or joint effusion. No evidence of any soft tissue swelling is seen. Multilevel degeneration changes of the wrist with joint space narrowing at t he bifurcation. IMPRESSION: No acute osseous pathology. [facility], , 10/14/2024 2:05 PM
== END | disposition home or self-care (01) ==
LOC: RADXRMAIN 13:29
PROVIDERS: ATTEND Family Medicine
DX: M25.531 Pain in right wrist (principal)